=== PATIENT | female | born 1960 | race African-American/Black ===

== ENCOUNTER 2016-03-24 09:17 | Emergency (ER) | payer BC ==
[2016-03-24] MEDS ORDERED: ASPIRIN 81 MG TABLET, CHEWABLE PO ONE (09:29)
[2016-03-24] MEDS ORDERED: KETOROLAC TROMETHAMINE INJ/PF 30 MG/1 ML SDV IV ONE (10:01)
--- NOTE | 2016-03-24 10:06 | ER Document Report ---
ED Cardiac - General Mode of Arrival: Ambulatory Information source: Patient TRAVEL OUTSIDE OF THE U.S. IN LAST 30 DAYS: No - HPI Patient complains to provider of: Chest pain Associated symptoms: Other - See above <LENNY DUFF - Last Filed: 03/24/16 10:01> <KYLE MORAES - Last Filed: 03/24/16 12:19> - General Chief Complaint: Chest Pain Stated Complaint: CHEST PRESSURE,HEAD PAIN Notes: Patient is a 55 year old female, with a past medical history including A-fib, who presents to the emergency department complaining of chest pain onset yesterday. Patient reports the pain is located in her central chest and worsened this morning. Patient denies any difference in the pain when breathing but states it is exacerbated by lying down. Last April patient was admitted in [place] for new onset A-fib, she is now on Diltiazem and takes a baby Aspirin daily. While admitted patient received a cardiac catheterization which was normal. 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 Family History: CAD, Hypertension Patient has suicidal ideation: No Patient has homicidal ideation: No - Past Medical History Cardiac Medical History: Reports: Hx Atrial Fibrillation Pulmonary Medical History: Reports: Hx Asthma GI Medical History: Reports: Hx Gastroesophageal Reflux Disease Past Surgical History: Reports: Hx Section, Hx Hysterectomy, Hx Orthopedic Surgery - L ankle, Hx Tubal Ligation - Immunizations Immunizations up to date: Yes Hx Diphtheria, Pertussis, Tetanus Vaccination: Yes - 2007 <LENNY DUFF - Last Filed: 03/24/16 10:01> Review of Systems - Review of Systems Constitutional: No symptoms reported EENT: No symptoms reported Cardiovascular: See HPI, Chest pain Respiratory: No symptoms reported Gastrointestinal: No symptoms reported Genitourinary: No symptoms reported Female Genitourinary: No symptoms reported Musculoskeletal: No symptoms reported Skin: No symptoms reported Hematologic/Lymphatic: No symptoms reported Neurological/Psychological: No symptoms reported -: Yes All other systems reviewed and negative <LENNY DUFF - Last Filed: 03/24/16 10:01> Physical Exam - Vital signs Interpretation: Normal - General General appearance: Appears well, Alert - HEENT Head: Normocephalic, Atraumatic - Respiratory Respiratory status: No respiratory distress Chest status: Tender - Sternal chest wall very tender to palpation Breath sounds: Normal Chest palpation: Normal - Cardiovascular Rhythm: Regular Heart sounds: Normal auscultation Murmur: No - Abdominal Inspection: Obese Distension: No distension Bowel sounds: Normal Tenderness: Nontender Organomegaly: No organomegaly - Back Back: Normal, Nontender - Extremities General upper extremity: Normal inspection General lower extremity: Normal inspection. No: Edema - Neurological Neuro grossly intact: Yes Cognition: Normal Orientation: AAOx4 Lawrence Coma Scale Eye Opening: Spontaneous Melinda Coma Scale Verbal: Oriented Melinda Coma Scale Motor: Obeys Commands Lawrence Coma Scale Total: 15 Speech: Normal - Psychological Associated symptoms: Normal affect, Normal mood - Skin Skin Temperature: Warm Skin Moisture: Dry Skin Color: Normal <LENNY DUFF - Last Filed: 03/24/16 10:01> Course <LENNY DUFF - Last Filed: 03/24/16 10:01> - Laboratory Result Diagrams: 03/24/16 10:06 03/24/16 10:06 <KYLE MORAES - Last Filed: 03/24/16 12:19> - Re-evaluation Re-evalutation: 03/24/16 12:10 EKG does not show ischemic changes. Troponins are undetectable after several hours of pain. Anterior chest pain is reproducible on palpation. 03/24/16 12:17 after discussing possible causes for her chest wall pain, she recalls now a few days ago picking up her young child which she had to reach across a fence to lift him up to set him on the table. She now believes that may be what started her chest discomfort. (KYLE MORAES) - Vital Signs Vital signs: Temp Pulse Resp BP Pulse Ox 19 134/69 H 97 03/24/16 12:01 03/24/16 12:01 03/24/16 12:01 (KYLE MORAES) - Laboratory Laboratory results interpreted by me: 03/24/16 03/24/16 10:06 10:06 WBC 3.2 L Hgb 11.8 L Hct 35.3 L Seg Neutrophils % 31.6 L Lymphocytes % 52.0 H Monocytes % 15.5 H Absolute Neutrophils 1.0 L Creatine Kinase 558 H Total Protein 8.4 H (KYLE MORAES) Discharge <LENNY DUFF - Last Filed: 03/24/16 10:01> <KYLE MORAES - Last Filed: 03/24/16 12:19> - Discharge Clinical Impression: Chest wall pain Condition: Stable Disposition: HOME, SELF-CARE Additional Instructions: Chest Wall Pain: Your chest pain has been diagnosed as coming from the chest wall. This is often caused by straining the muscles or joints in the chest during physical activity, direct trauma, coughing, or vigorous vomiting. Persons with arthritis are especially prone to this type of pain, due to inflammation of the cartilage joints near the breast bone. Occasionally, no cause can be found. Rest from strenuous physical activity. This kind of chest pain is usually made worse by movement of the chest. Depending on the symptoms, we may prescribe medicine for pain, muscle relaxation, and antiinflammatory effects. If the pain is new, and seems to be due to muscle strain, cold packs can help. Otherwise, apply gentle warmth to the painful area for 15 minutes every hour or two. You should contact the doctor immediately if things change. Further evaluation is needed if you develop a fever or cough, if the nature of the pain changes, or if you become short of breath. TAKE TYLENOL AND MOTRIN FOR PAIN NEEDED. REST. TRY MOIST HEAT. F0LLOW UP WITH YOUR DOCTOR IF NOT IMPROVING. RETURN TO THE EMERGENCY ROOM IF ANY NEW OR WORSENING SYMPTOMS. Scribe Attestation: 03/24/16 12:19 I personally performed the services described in the documentation, reviewed and edited the documentation which was dictated to the scribe in my presence, and it accurately records my words and actions. (KYEL MORAES) Scribe Documentation <LENNY DUFF - Last Filed: 03/24/16 10:01> <KYLE MORAES - Last Filed: 03/24/16 12:19> - Scribe Written by Scribe:: KYLE MORAES MD, SCRIBE 03/24/16 1210 Acting as scribe for: Dr. Moraes (LENNY DUFF) (KYLE MORAES)
[2016-03-24 10:41] LABS: ABSOLUTE LYMPHOCYTES (AUTO) 1.7 10^3/uL (0.5-4.7); ABSOLUTE MONOCYTES (AUTO) 0.5 10^3/uL (0.1-1.4); BASOPHILS % (AUTO) 0.6 % (0-2); EOSINOPHILS % (AUTO) 0.3 % (0-6); HEMATOCRIT 35.3 % (36.0-47.0); HEMOGLOBIN 11.8 g/dL (12.0-15.5); HGB HCT DIFFERENCE 0.1; MEAN CORPUSCULAR HEMOGLOBIN 29.8 pg (27.0-33.4); MEAN CORPUSCULAR HGB CONC 33.6 g/dL (32.0-36.0); MEAN CORPUSCULAR VOLUME 89 fl (80-97); MONOCYTES % (AUTO) 15.5 % (3-13); RED BLOOD COUNT 3.98 10^6/uL (3.72-5.28); RED CELL DISTRIBUTION WIDTH 13.7 % (11.5-14.0); SEGMENTED NEUTROPHILS % (AUTO) 31.6 % (42-78); WHITE BLOOD COUNT 3.2 10^3/uL (4.0-10.5)
[2016-03-24 11:06] LABS: ALANINE AMINOTRANSFERASE 29 U/L (9-52); ALKALINE PHOSPHATASE 67 U/L (38-126); ANION GAP 10 (5-19); ASPARTATE AMINO TRANSFERASE 36 U/L (14-36); BILIRUBIN,TOTAL 0.7 mg/dL (0.2-1.3); BLOOD UREA NITROGEN 10 mg/dL (7-20); CALCIUM 9.4 mg/dL (8.4-10.2); CARBON DIOXIDE 27 mmol/L (22-30); CHLORIDE 105 mmol/L (98-107); CREATINE KINASE 558 U/L (30-135); GLUCOSE 89 mg/dL (75-110); POTASSIUM 4.4 mmol/L (3.6-5.0); TOTAL PROTEIN 8.4 g/dL (6.3-8.2)
[2016-03-24 12:14] VITALS: BP 134/69
--- NOTE | 2016-03-24 15:07 | EKG REPORT ---
SEVERITY:- ABNORMAL ECG - SINUS RHYTHM VENTRICULAR PREMATURE COMPLEX RBBB AND LAFB LEFT VENTRICULAR HYPERTROPHY : Confirmed by: Trae Villafana 24-Mar-2016 15:07:12
== END 2016-03-24 12:37 | disposition home or self-care (01) ==
LOC: ER 09:17
DX: R07.89 Other chest pain (principal); R51 Headache; I48.91 Unspecified atrial fibrillation; Z79.899 Other long term (current) drug therapy; Z87.891 Personal history of nicotine dependence
CPT/HCPCS: 93005; 99285; 96374; 36415; 82550; 85025; 80053; 84484; 71010; 93010; J1885

== ENCOUNTER 2016-10-11 17:38 | Emergency (ER) | payer BC ==
[2016-10-11] MEDS ORDERED: DIPHENHYDRAMINE HCL 25 MG CAPSULE PO ONE (18:43)
[2016-10-11] MEDS ORDERED: NYSTATIN/TRIAMCIN CREAM 15 GM TP ONE (18:44)
--- NOTE | 2016-10-11 18:44 | ER Document Report ---
HPI - HPI Pain Level: 2 Context: 56 yo female c/o pruritic area on mid upper back x 1 week. pt thinks she was bitten by something. she has been scratching the area aggressively. mild discomfort in that area when she lays on it, otherwise no pain. feels well, no fever. pt does have hx/o HIV Associated Symptoms: None Exacerbated by: Denies Relieved by: Denies Similar symptoms previously: No Recently seen / treated by doctor: No - ROS Systems Reviewed and Negative: Yes All other systems reviewed and negative - REPRODUCTIVE Reproductive: DENIES: : - DERM Skin Color: Normal Past Medical History - General Information source: Patient - Social History Smoking Status: Never Smoker Frequency of alcohol use: None Drug Abuse: None Lives with: Family Family History: CAD, Hypertension Patient has suicidal ideation: No Patient has homicidal ideation: No - Past Medical History Cardiac Medical History: Reports: Hx Atrial Fibrillation Pulmonary Medical History: Reports: Hx Asthma Renal/ Medical History: Denies: Hx Peritoneal Dialysis GI Medical History: Reports: Hx Gastroesophageal Reflux Disease Past Surgical History: Reports: Hx Section, Hx Hysterectomy, Hx Orthopedic Surgery - L ankle, Hx Tubal Ligation - Immunizations Immunizations up to date: Yes Hx Diphtheria, Pertussis, Tetanus Vaccination: Yes - 2007 Vertical Provider Document - CONSTITUTIONAL Agree With Documented VS: Yes Exam Limitations: No Limitations General Appearance: WD/WN, No Apparent Distress - INFECTION CONTROL TRAVEL OUTSIDE OF THE U.S. IN LAST 30 DAYS: No - HEENT HEENT: Atraumatic, PERRLA - NECK Neck: Normal Inspection, Supple - RESPIRATORY Respiratory: Breath Sounds Normal, No Respiratory Distress O2 Sat by Pulse Oximetry: 95 - CARDIOVASCULAR Cardiovascular: Regular Rate, Regular Rhythm - BACK Back: Abnormal Inspection - 2-3 cm cystic mass to mid upper back - MUSCULOSKELETAL/EXTREMETIES Musculoskeletal/Extremeties: MAEW, FROM, Non-Tender - NEURO Level of Consciousness: Awake, Alert, Appropriate - DERM Integumentary: Warm, Dry Course - Re-evaluation Re-evalutation: 10/11/16 19:19 H&P c/w with sebaceous or dermoid cyst. discussed I&D with patient, but she declines at this time. she requests trying antibiotics. I emphasized that I think drainage would be more effective, but she still declines. pt agrees to follow up with primary care or return to ER for any worsening. pt is stable for discharge - Vital Signs Vital signs: Temp Pulse Resp BP Pulse Ox 98.8 F 72 16 139/76 H 95 10/11/16 17:48 10/11/16 17:48 10/11/16 17:48 10/11/16 17:48 10/11/16 17:48 Discharge - Discharge Clinical Impression: Cyst Condition: Stable Disposition: HOME, SELF-CARE Instructions: Antibiotic Therapy ([facility]), Topical Steroid Cream or Ointment ([facility]) Additional Instructions: You have a cystic mass on your back You have chosen to try conservative treatment with oral antibiotic and topical steroid cream Followup with your primary care provider if symptoms persist or worsen You may need incision and drainage of that area if it doesn't respond to therapy Prescriptions: Clindamycin HCl [Cleocin 300 mg Capsule] 300 mg PO BID #14 capsule Triamcinolone Acetonide [Aristocort 0.1% Cream] 1 applic TP BID #30 g
[2016-10-11 19:42] VITALS: BP 129/72
== END 2016-10-11 19:40 | disposition home or self-care (01) ==
LOC: ER 17:38
DX: L72.0 Epidermal cyst (principal); J45.909 Unspecified asthma, uncomplicated; Z21 Asymptomatic human immunodeficiency virus [HIV] infection status
CPT/HCPCS: 99282

== ENCOUNTER 2017-05-16 06:04 | Emergency (ER) | payer BC ==
[2017-05-16] MEDS ORDERED: NORMAL SALINE 1000 ML 1,000 ML IV ONE (06:16)
[2017-05-16] MEDS ORDERED: MAG HYDROX/AL HYDROX/SIMETH SUSP 30 ML UDCUP PO ONE (06:51)
[2017-05-16] MEDS ORDERED: LIDOCAINE 2% VISCOUS SOLN 20 ML UDCUP PO ONE (06:51)
[2017-05-16] MEDS ORDERED: METOCLOPRAMIDE HCL ORAL SOLN 10 MG/10 ML UDCUP PO ONE (06:51)
[2017-05-16 07:10] LABS: ABSOLUTE LYMPHOCYTES (AUTO) 1.9 10^3/uL (0.5-4.7); ABSOLUTE MONOCYTES (AUTO) 0.5 10^3/uL (0.1-1.4); ABSOLUTE NEUT (AUTO) 1.5 10^3/uL (1.7-8.2); BASOPHILS % (AUTO) 0.7 % (0-2); EOSINOPHILS % (AUTO) 0.4 % (0-6); HEMATOCRIT 35.4 % (36.0-47.0); HEMOGLOBIN 11.8 g/dL (12.0-15.5); LYMPHOCYTES % (AUTO) 48.8 % (13-45); MEAN CORPUSCULAR HEMOGLOBIN 31.4 pg (27.0-33.4); MEAN CORPUSCULAR HGB CONC 33.5 g/dL (32.0-36.0); MEAN CORPUSCULAR VOLUME 94 fl (80-97); MONOCYTES % (AUTO) 12.3 % (3-13); PLATELET COUNT 275 10^3/uL (150-450); RED BLOOD COUNT 3.77 10^6/uL (3.72-5.28); RED CELL DISTRIBUTION WIDTH 13.5 % (11.5-14.0); SEGMENTED NEUTROPHILS % (AUTO) 37.8 % (42-78); TOTAL CELLS COUNTED % (AUTO) 100 %; WHITE BLOOD COUNT 3.9 10^3/uL (4.0-10.5)
[2017-05-16 07:23] LABS: ALANINE AMINOTRANSFERASE 31 U/L (9-52); ALBUMIN 4.3 g/dL (3.5-5.0); ALKALINE PHOSPHATASE 64 U/L (38-126); ANION GAP 9 (5-19); ASPARTATE AMINO TRANSFERASE 31 U/L (14-36); BILIRUBIN,DIRECT 0.3 mg/dL (0.0-0.4); BILIRUBIN,TOTAL 0.5 mg/dL (0.2-1.3); BLOOD UREA NITROGEN 13 mg/dL (7-20); CALCIUM 9.6 mg/dL (8.4-10.2); CARBON DIOXIDE 26 mmol/L (22-30); CHLORIDE 109 mmol/L (98-107); GLUCOSE 97 mg/dL (75-110); LIPASE 109.8 U/L (23-300); POTASSIUM 4.4 mmol/L (3.6-5.0); SODIUM 143.6 mmol/L (137-145); TOTAL PROTEIN 7.9 g/dL (6.3-8.2)
[2017-05-16 07:27] LABS: ALCOHOL < 10 mg/dL (NONE DETECTED)
[2017-05-16] MEDS ORDERED: CEPHALEXIN 500 MG CAPSULE PO ONE (08:28)
--- NOTE | 2017-05-16 08:33 | ER Document Report ---
ED General - General Chief Complaint: Abdominal Pain Stated Complaint: ABDOMINAL PAIN Time Seen by Provider: 05/16/17 06:27 TRAVEL OUTSIDE OF THE U.[place]. IN LAST 30 DAYS: No - HPI Patient complains to provider of: Abdominal pain lump in the left armpit Notes: Patient coming in for abdominal pain epigastric states worse as soon as she eats food. Patient states achy and sharp. Patient states history of H. pylori in the past however has not had an upper or lower prescription performed in greater than 5 years. Patient resting comfortably upon my evaluation denies any fevers chills nausea vomiting diarrhea. Patient also is concerned about a lump forming underneath her left armpit. Patient states multiple I&D's performed because of abscesses in the past. Patient does states she is HIV positive no history of a is unaware of her last CD4 count currently compliant with her triple therapy - Related Data Allergies/Adverse Reactions: ciprofloxacin [From Cipro] Allergy (Mild, Verified 10/11/16 19:18) Hives ciprofloxacin HCl [From Cipro] Allergy (Mild, Verified 10/11/16 19:18) Hives Past Medical History - Social History Smoking Status: Never Smoker Family History: CAD, Hypertension Patient has suicidal ideation: No Patient has homicidal ideation: No - Past Medical History Cardiac Medical History: Reports: Hx Atrial Fibrillation Pulmonary Medical History: Reports: Hx Asthma Renal/ Medical History: Denies: Hx Peritoneal Dialysis GI Medical History: Reports: Hx Gastroesophageal Reflux Disease Past Surgical History: Reports: Hx Section, Hx Hysterectomy, Hx Orthopedic Surgery - L ankle, Hx Tubal Ligation - Immunizations Immunizations up to date: Yes Hx Diphtheria, Pertussis, Tetanus Vaccination: Yes - 2007 Review of Systems - Review of Systems Constitutional: No symptoms reported EENT: No symptoms reported Cardiovascular: No symptoms reported Respiratory: No symptoms reported Gastrointestinal: Abdominal pain Genitourinary: No symptoms reported Female Genitourinary: No symptoms reported Musculoskeletal: Other - Pain left axilla Skin: No symptoms reported Hematologic/Lymphatic: No symptoms reported Neurological/Psychological: No symptoms reported -: Yes All other systems reviewed and negative Physical Exam - Vital signs Vitals: Temp Pulse Resp BP Pulse Ox 98.3 F 71 16 140/75 H 98 05/16/17 06:13 05/16/17 06:13 05/16/17 06:13 05/16/17 06:13 05/16/17 06:13 Interpretation: Normal - General General appearance: Appears well, Alert - HEENT Head: Normocephalic, Atraumatic Eyes: Normal Pupils: PERRL - Respiratory Respiratory status: No respiratory distress Chest status: Nontender Breath sounds: Normal Chest palpation: Normal - Cardiovascular Rhythm: Regular Heart sounds: Normal auscultation Murmur: No - Abdominal Inspection: Normal Distension: No distension Bowel sounds: Normal Tenderness: Nontender Organomegaly: No organomegaly - Back Back: Normal, Nontender - Extremities General upper extremity: Nontender, Normal color, Normal ROM, Normal temperature. No: Normal inspection - Examination of the left axilla reveals near the scar tissue when area of induration small less than a centimeter by centimeter with erythema. There is no fluctuance. Bedside ultrasound was performed showing no drainable fluid collection. This area is painful to touch. No other significant findings on examination General lower extremity: Normal inspection, Nontender, Normal color, Normal ROM , Normal temperature, Normal weight bearing. No: Joaquim's sign - Neurological Neuro grossly intact: Yes Cognition: Normal Orientation: AAOx4 Melinda Coma Scale Eye Opening: Spontaneous Melinda Coma Scale Verbal: Oriented Melinda Coma Scale Motor: Obeys Commands Matheson Coma Scale Total: 15 Speech: Normal Motor strength normal: LUE, RUE, LLE, RLE Sensory: Normal - Psychological Associated symptoms: Normal affect, Normal mood - Skin Skin Temperature: Warm Skin Moisture: Dry Skin Color: Normal Course - Re-evaluation Re-evalutation: 05/16/17 13:22 Laboratory studies not reveal any significant pathology. More likely abdominal pain is related to underlying gastritis. Will start patient on Reglan Carafate and omeprazole. Patient was highly encouraged to follow-up with a diamond wheel edger for upper and lower scopes to be repeated. Patient states understanding. . Patient more likely has hidradenitis with a history of multiple I&D's performed in the axilla region. At this time there is no drainable fluid collection however there is an area of redness and induration we will start the patient on Keflex to hopefully prevent an abscess formation explained to patient that I will highly recommend that she follow-up with local surgeons for further evaluation. Patient states understanding. - Vital Signs Vital signs: Temp Pulse Resp BP Pulse Ox 98.3 F 71 16 140/75 H 98 05/16/17 06:13 05/16/17 06:13 05/16/17 06:13 05/16/17 06:13 05/16/17 06:13 - Laboratory Result Diagrams: 05/16/17 06:45 05/16/17 06:45 Laboratory results interpreted by me: 05/16/17 05/16/17 06:45 06:45 WBC 3.9 L Hgb 11.8 L Hct 35.4 L Seg Neutrophils % 37.8 L Lymphocytes % 48.8 H Absolute Neutrophils 1.5 L Chloride 109 H Discharge - Discharge Clinical Impression: Epigastric abdominal pain, Hidradenitis axillaris Condition: Good Instructions: Abdominal Pain ([facility]), Gastritis ([facility]), Gastroenterology, Surgeon Additional Instructions: Evaluation is consistent with gastritis or inflammation of the stomach lining. I will highly recommend she follow-up with a diamond wheel edger for further evaluation. Please continue take medications as prescribed. Evaluation of the knot underneath your left armpit does not reveal any signs of abscess formation or anything that would require drainage at this time. I do believe you probably suffers from hidradenitis which condition where he had multiple infections and abscesses with your sebaceous glands. Most time we will refer you to a general surgeon for further treatment of this. you may follow-up with 1 of the surgeons provided or discuss with your infectious disease doctor about a surgeon in [place]. I would recommend placing warm compresses on the area. Take Tylenol Motrin for pain control his symptoms worsen return to the ER for further evaluation. Prescriptions: Cephalexin Monohydrate [Keflex 500 mg Capsule] 500 mg PO Q6H 7 Days capsule Metoclopramide HCl [Reglan] 5 mg PO Q6 #30 tablet Omeprazole 20 mg PO DAILY #30 capsule. Sucralfate [Carafate 1 gm Tablet] 1 gm PO ACHS #120 tablet Forms: Return to Work
[2017-05-16 10:31] VITALS: BP 118/64
== END 2017-05-16 09:40 | disposition home or self-care (01) ==
LOC: ER 06:04
DX: L73.2 Hidradenitis suppurativa (principal); R10.13 Epigastric pain; Z88.3 Allergy status to other anti-infective agents; Z90.710 Acquired absence of both cervix and uterus
CPT/HCPCS: 99284; 36415; 80307; 83690; 85025; 80053; J3490

== ENCOUNTER 2018-02-11 10:27 | Emergency (ER) | payer BC ==
[2018-02-11] MEDS ORDERED: ASPIRIN 81 MG TABLET, CHEWABLE PO ONE (10:32)
[2018-02-11] MEDS ORDERED: MORPHINE SULFATE 10 MG/ML INJ IV ONE (10:42)
--- NOTE | 2018-02-11 10:47 | ER Document Report ---
ED Cardiac - General Chief Complaint: Chest Pain Stated Complaint: CHEST PAIN Time Seen by Provider: 02/11/18 10:35 Mode of Arrival: Medic Information source: Patient Notes: 57-year-old female presents emergency department with complaints of chest pain for the last 2 days. She describes the pain as a pressure sensation in the left chest. She is also complaining of some associated left arm pain. She denies any radiation of the pain. She states that her chest pain was relieved with aspirin and nitro. She still having some residual left arm pain. She denies any exacerbating factors. Patient denies a history of coronary artery disease, diabetes, hypertension, hyperlipidemia. Patient does not smoke. Patient states that her father did of an MA in his 60s. Patient states that she has had a history of atrial fibrillation. She is not currently on any medications for rate control or for anticoagulation. Patient does have a history of HIV. She is being followed up in [place]. Patient states that her CD4 count has been good. She does not know what it was. She states that she is on medication for HIV but does not know the names of the medication. She denies any fever, chills, shortness of breath, abdominal pain. TRAVEL OUTSIDE OF THE [place] IN LAST 30 DAYS: No - HPI Quality of pain: Pressure Chest pain radiation location: Left arm Severity now: Mild Severity at worst: Severe Chest pain precipitating factors: At Rest Cardiac risk factors: + Family history Associated symptoms: None Exacerbated by: Denies Relieved by: NTG Similar symptoms previously: Yes Recently seen / treated by doctor: No - Related Data Allergies/Adverse Reactions: ciprofloxacin [From Cipro] Allergy (Mild, Verified 02/11/18 11:31) Hives ciprofloxacin HCl [From Cipro] Allergy (Mild, Verified 02/11/18 11:31) Hives Past Medical History - General Information source: Patient - Social History Smoking Status: Never Smoker Family History: CAD, Hypertension - Past Medical History Cardiac Medical History: Reports: Hx Atrial Fibrillation Pulmonary Medical History: Reports: Hx Asthma Renal/ Medical History: Denies: Hx Peritoneal Dialysis GI Medical History: Reports: Hx Gastroesophageal Reflux Disease Past Surgical History: Reports: Hx Section, Hx Hysterectomy, Hx Orthopedic Surgery - L ankle, Hx Tubal Ligation - Immunizations Immunizations up to date: Yes Hx Diphtheria, Pertussis, Tetanus Vaccination: Yes - 2007 Review of Systems - Review of Systems Constitutional: No symptoms reported EENT: No symptoms reported Cardiovascular: Chest pain Respiratory: No symptoms reported Gastrointestinal: No symptoms reported Genitourinary: No symptoms reported Female Genitourinary: No symptoms reported Musculoskeletal: No symptoms reported Skin: No symptoms reported Hematologic/Lymphatic: No symptoms reported Neurological/Psychological: No symptoms reported -: Yes All other systems reviewed and negative Physical Exam - Vital signs Vitals: Pulse Ox 100 02/11/18 10:32 - Notes Notes: PHYSICAL EXAMINATION: GENERAL: Well-appearing, well-nourished and in no acute distress. HEAD: Atraumatic, normocephalic. EYES: Pupils equal round and reactive to light, extraocular movements intact, conjunctiva are normal. ENT: Nares patent, oropharynx clear without exudates. Moist mucous membranes. NECK: Normal range of motion, supple without lymphadenopathy LUNGS: Breath sounds clear to auscultation bilaterally and equal. No wheezes rales or rhonchi. HEART: Regular rate and rhythm without murmurs ABDOMEN: Soft, nontender, nondistended abdomen. No guarding, no rebound. No masses appreciated. Female : deferred Musculoskeletal: Normal range of motion, no pitting or edema. No cyanosis. NEUROLOGICAL: Cranial nerves grossly intact. Normal speech, normal gait. Normal sensory, motor exams PSYCH: Normal mood, normal affect. SKIN: Warm, Dry, normal turgor, no rashes or lesions noted. Course - Re-evaluation Re-evalutation: 02/11/18 10:47 EKG: Ventricular rate 69, DE interval 156, castration 150, QTc 506, sinus rhythm , multiple PVCs appreciated. EKG similar to that done on 03/24/16. 02/11/18 14:18 Labs and imaging obtained. First troponin is within normal limits. Chest x- ray does not show an acute process. I reevaluate the patient. She is currently asymptomatic. I instructed the patient that we would obtain a second troponin and if this was negative we would discharge her home. Patient is now stating that she wants to leave AGAINST MEDICAL ADVICE. She does not want to wait for the second troponin. Patient is competent to make medical decisions. Patient understands that her condition may worsen or she may by leaving AGAINST MEDICAL ADVICE. - Vital Signs Vital signs: Temp Pulse Resp BP Pulse Ox 98.3 F 58 L 12 151/98 H 100 02/11/18 10:41 02/11/18 10:41 02/11/18 10:41 02/11/18 10:41 02/11/18 10:41 - Laboratory Result Diagrams: 02/11/18 10:15 02/11/18 10:15 Laboratory results interpreted by me: 02/11/18 02/11/18 10:15 10:15 WBC 3.7 L Seg Neutrophils % 34.2 L Lymphocytes % 54.4 H Absolute Neutrophils 1.3 L Creatine Kinase 356 H Discharge - Discharge Clinical Impression: Chest pain Qualifiers: Chest pain type: unspecified Qualified Code(s): R07.9 - Chest pain, unspecified Condition: Stable Disposition: AGAINST MEDICAL ADVICE
[2018-02-11 11:25] LABS: ABSOLUTE MONOCYTES (AUTO) 0.4 10^3/uL (0.1-1.4); ABSOLUTE NEUT (AUTO) 1.3 10^3/uL (1.7-8.2); BASOPHILS % (AUTO) 0.7 % (0-2); EOSINOPHILS % (AUTO) 0.2 % (0-6); HEMATOCRIT 36.5 % (36.0-47.0); HEMOGLOBIN 12.1 g/dL (12.0-15.5); LYMPHOCYTES % (AUTO) 54.4 % (13-45); MEAN CORPUSCULAR HEMOGLOBIN 30.7 pg (27.0-33.4); MEAN CORPUSCULAR HGB CONC 33.1 g/dL (32.0-36.0); MEAN CORPUSCULAR VOLUME 93 fl (80-97); MONOCYTES % (AUTO) 10.5 % (3-13); PLATELET COUNT 266 10^3/uL (150-450); RED BLOOD COUNT 3.93 10^6/uL (3.72-5.28); SEGMENTED NEUTROPHILS % (AUTO) 34.2 % (42-78); TOTAL CELLS COUNTED % (AUTO) 100 %; WHITE BLOOD COUNT 3.7 10^3/uL (4.0-10.5)
--- NOTE | 2018-02-11 11:30 | RADIOLOGY REPORT (SQ) ---
EXAM DESCRIPTION: CHEST SINGLE VIEW COMPLETED DATE/TIME: 02/11/2018 11:17 am REASON FOR STUDY: cp COMPARISON: 02/08/2014 EXAM PARAMETERS: NUMBER OF VIEWS: One view. TECHNIQUE: Single frontal radiographic view of the chest acquired. RADIATION DOSE: NA LIMITATIONS: None. FINDINGS: LUNGS AND PLEURA: No opacities, masses or pneumothorax. No pleural effusion. MEDIASTINUM AND HILAR STRUCTURES: No masses. Contour normal. HEART AND VASCULAR STRUCTURES: Heart normal in size. Normal vasculature. BONES: No acute findings. HARDWARE: None in the chest. OTHER: No other significant finding. IMPRESSION: NO ACUTE RADIOGRAPHIC FINDING IN THE CHEST. TECHNICAL DOCUMENTATION: JOB ID: [id number] [employer]- All Rights Reserved Reading location - IP/workstation name: [email or web address]
[2018-02-11 11:44] LABS: ALANINE AMINOTRANSFERASE 17 U/L (9-52); ALBUMIN 4.3 g/dL (3.5-5.0); ALKALINE PHOSPHATASE 73 U/L (38-126); ANION GAP 12 (5-19); ASPARTATE AMINO TRANSFERASE 28 U/L (14-36); BILIRUBIN,DIRECT 0.2 mg/dL (0.0-0.4); BILIRUBIN,TOTAL 0.5 mg/dL (0.2-1.3); BLOOD UREA NITROGEN 11 mg/dL (7-20); CALCIUM 9.4 mg/dL (8.4-10.2); CARBON DIOXIDE 28 mmol/L (22-30); CHLORIDE 105 mmol/L (98-107); CREATINE KINASE 356 U/L (30-135); GLUCOSE 95 mg/dL (75-110); POTASSIUM 4.7 mmol/L (3.6-5.0); SODIUM 144.7 mmol/L (137-145)
[2018-02-11 11:55] LABS: CREATINE KINASE MB 2.77 ng/mL (<4.55)
[2018-02-11 11:56] LABS: TROPONIN I < 0.012 ng/mL
[2018-02-11 14:25] VITALS: BP 141/72
--- NOTE | 2018-02-11 18:38 | EKG REPORT ---
SEVERITY:- ABNORMAL ECG - SINUS RHYTHM MULTIPLE VENTRICULAR PREMATURE COMPLEXES RBBB AND LAFB LEFT VENTRICULAR HYPERTROPHY : Confirmed by: Trae Villafana 11-Feb-2018 18:37:00
== END 2018-02-11 14:20 | disposition left against medical advice (07) ==
LOC: ER 10:27
DX: R07.9 Chest pain, unspecified (principal); M79.602 Pain in left arm; B20 Human immunodeficiency virus [HIV] disease; Z79.899 Other long term (current) drug therapy; J45.909 Unspecified asthma, uncomplicated
CPT/HCPCS: 36415; 71045; 80053; 82550; 82553; 84484; 85025; 93005; 93010; 99285

== ENCOUNTER 2018-11-22 10:07 | Emergency (ER) | payer BC ==
[2018-11-22] MEDS ORDERED: KETOROLAC TROMETHAMINE INJ/PF 30 MG/1 ML SDV IV ONE (11:44)
--- NOTE | 2018-11-22 11:55 | ER Document Report ---
ED General - General Chief Complaint: Neck Pain < 24hrs old Stated Complaint: NECK PAIN Time Seen by Provider: 11/22/18 11:35 Mode of Arrival: Ambulatory Information source: Patient TRAVEL OUTSIDE OF THE [place] IN LAST 30 DAYS: No - HPI Patient complains to provider of: neck/chest pain Onset: Yesterday - pt with onset of atraumatic R-sided neck pain starting last night. Today neck pain continued with radiation to R shoulder and chest. She went to PCP office ([facility]) where EKG had changes on it and was told to go to ED for further evaluation. She was given ASA there. Has h/o A fib and HIV - Related Data Allergies/Adverse Reactions: ciprofloxacin [From Cipro] Allergy (Mild, Verified 11/22/18 10:09) Hives ciprofloxacin HCl [From Cipro] Allergy (Mild, Verified 11/22/18 10:09) Hives Past Medical History - Social History Smoking Status: Former Smoker Chew tobacco use (# tins/day): No Frequency of alcohol use: None Drug Abuse: None Family History: CAD, Hypertension Patient has suicidal ideation: No Patient has homicidal ideation: No - Past Medical History Cardiac Medical History: Reports: Hx Atrial Fibrillation Pulmonary Medical History: Reports: Hx Asthma Renal/ Medical History: Denies: Hx Peritoneal Dialysis GI Medical History: Reports: Hx Gastroesophageal Reflux Disease Past Surgical History: Reports: Hx Section, Hx Hysterectomy, Hx Orthopedic Surgery - L ankle, Hx Tubal Ligation - Immunizations Immunizations up to date: Yes Hx Diphtheria, Pertussis, Tetanus Vaccination: Yes - 2007 Review of Systems - Review of Systems Constitutional: No symptoms reported EENT: No symptoms reported Cardiovascular: See HPI, Chest pain Respiratory: No symptoms reported Gastrointestinal: No symptoms reported Musculoskeletal: See HPI, Neck pain Neurological/Psychological: No symptoms reported -: Yes All other systems reviewed and negative Physical Exam - Vital signs Vitals: Temp Pulse Resp BP Pulse Ox 98.8 F 64 20 179/77 H 98 11/22/18 10:20 11/22/18 10:20 11/22/18 10:20 11/22/18 10:20 11/22/18 10:20 - General General appearance: Appears well In distress: Mild - HEENT Head: Normocephalic Pupils: PERRL Pharynx: Normal Neck: Other - min TTP R sternomastoid diffusely with FROM of neck. - Respiratory Respiratory status: No respiratory distress Breath sounds: Normal - Cardiovascular Rhythm: Regular Heart sounds: Normal auscultation Murmur: No - Abdominal Inspection: Normal Tenderness: Nontender Course - Re-evaluation Re-evalutation: 11/22/18 13:54 pt feels much better after IM toradol -- expressed desire to go home - Vital Signs Vital signs: Temp Pulse Resp BP Pulse Ox 98.8 F 64 20 179/77 H 98 11/22/18 10:20 11/22/18 10:20 11/22/18 10:20 11/22/18 10:20 11/22/18 10:20 - Laboratory Result Diagrams: 11/22/18 12:22 11/22/18 12:22 Laboratory results interpreted by me: 11/22/18 12:22 Creatine Kinase 276 H - Diagnostic Test Radiology reviewed: Reports reviewed - nad - EKG Interpretation by Me EKG shows normal: Sinus rhythm Rate: Normal Rhythm: NSR - nsr with RBBB and LAFB (unchanged from 02/26). Discharge - Discharge Clinical Impression: Neck pain Condition: Stable Disposition: HOME, SELF-CARE Additional Instructions: rest, take meds as prescribed, return if worse Prescriptions: Cyclobenzaprine HCl [Flexeril 10 mg Tablet] 10 mg PO TIDP PRN #15 tab PRN Reason: Etodolac [Lodine] 400 mg PO BID #14 tablet Referrals: SUE MORRIS MD [ACTIVE STAFF] - Follow up as needed
--- NOTE | 2018-11-22 12:49 | RADIOLOGY REPORT (SQ) ---
EXAM DESCRIPTION: CHEST 2 VIEWS COMPLETED DATE/TIME: 11/22/2018 12:39 pm REASON FOR STUDY: CP COMPARISON: None. EXAM PARAMETERS: NUMBER OF VIEWS: two views TECHNIQUE: Digital Frontal and Lateral radiographic views of the chest acquired. RADIATION DOSE: NA LIMITATIONS: none FINDINGS: LUNGS AND PLEURA: No consolidation, pleural effusion or pneumothorax. MEDIASTINUM AND HILAR STRUCTURES: No mediastinal or hilar contour abnormality. HEART AND VASCULAR STRUCTURES: The cardiac silhouette is borderline enlarged. The pulmonary vasculat ure is within normal limits. BONES: No acute findings. HARDWARE: None in the chest. OTHER: No other finding. IMPRESSION: No acute cardiopulmonary process. TECHNICAL DOCUMENTATION: JOB ID: [id number] [employer]- All Rights Reserved Reading location - IP/workstation name: [email or web address]
[2018-11-22 13:12] LABS: ABSOLUTE LYMPHOCYTES (AUTO) 1.7 10^3/uL (0.5-4.7); ABSOLUTE MONOCYTES (AUTO) 0.5 10^3/uL (0.1-1.4); ABSOLUTE NEUT (AUTO) 2.8 10^3/uL (1.7-8.2); BASOPHILS % (AUTO) 0.5 % (0-2); EOSINOPHILS % (AUTO) 0.2 % (0-6); HEMATOCRIT 36.1 % (36.0-47.0); LYMPHOCYTES % (AUTO) 34.3 % (13-45); MEAN CORPUSCULAR HEMOGLOBIN 31.2 pg (27.0-33.4); MEAN CORPUSCULAR HGB CONC 33.2 g/dL (32.0-36.0); MEAN CORPUSCULAR VOLUME 94 fl (80-97); MONOCYTES % (AUTO) 9.3 % (3-13); PLATELET COUNT 255 10^3/uL (150-450); RED BLOOD COUNT 3.85 10^6/uL (3.72-5.28); RED CELL DISTRIBUTION WIDTH 13.5 % (11.5-14.0); SEGMENTED NEUTROPHILS % (AUTO) 55.7 % (42-78); TOTAL CELLS COUNTED % (AUTO) 100 %; WHITE BLOOD COUNT 5.1 10^3/uL (4.0-10.5)
[2018-11-22 13:29] LABS: ALBUMIN 4.7 g/dL (3.5-5.0); ALKALINE PHOSPHATASE 83 U/L (38-126); ANION GAP 10 (5-19); ASPARTATE AMINO TRANSFERASE 26 U/L (14-36); BILIRUBIN,DIRECT 0.2 mg/dL (0.0-0.4); BILIRUBIN,TOTAL 0.6 mg/dL (0.2-1.3); BLOOD UREA NITROGEN 14 mg/dL (7-20); CALCIUM 9.6 mg/dL (8.4-10.2); CARBON DIOXIDE 29 mmol/L (22-30); CHLORIDE 103 mmol/L (98-107); CREATINE KINASE 276 U/L (30-135); GLUCOSE 89 mg/dL (75-110); POTASSIUM 4.2 mmol/L (3.6-5.0)
[2018-11-22 13:51] LABS: TROPONIN I < 0.012 ng/mL
[2018-11-22 14:16] VITALS: BP 176/78
--- NOTE | 2018-11-22 23:10 | EKG REPORT ---
SEVERITY:- ABNORMAL ECG - SINUS RHYTHM RBBB AND LAFB LEFT VENTRICULAR HYPERTROPHY : Confirmed by: Swapna Mcrae MD 22-Nov-2018 23:09:34
== END 2018-11-22 14:16 | disposition home or self-care (01) ==
LOC: ER 10:07
DX: M54.2 Cervicalgia (principal); M25.511 Pain in right shoulder; R07.9 Chest pain, unspecified; I45.2 Bifascicular block; J45.909 Unspecified asthma, uncomplicated; Z21 Asymptomatic human immunodeficiency virus [HIV] infection status; Z87.891 Personal history of nicotine dependence; Z88.1 Allergy status to other antibiotic agents; Z82.49 Family history of ischemic heart disease and other diseases of the circulatory system
CPT/HCPCS: 93005; 99284; 96374; 36415; 82553; 82550; 85025; 80053; 84484; 71046; 93010; J1885

== ENCOUNTER 2018-12-27 08:59 | Observation (INO) | payer BC ==
[2018-12-27] MEDS ORDERED: ASPIRIN 81 MG TABLET, CHEWABLE PO ONE (09:06)
[2018-12-27] MEDS ORDERED: NORMAL SALINE 1000 ML 1,000 ML IV ONE (09:36)
[2018-12-27] MEDS ORDERED: DILTIAZEM HCL INJ 25 MG/5 ML VIAL IV ONE ×2 (09:36→18:01)
--- NOTE | 2018-12-27 09:36 | ER Document Report ---
Entered by HUMERA IGLESIAS SCRIBE 12/27/18919 Acting as scribe for:KYLE MORAES MD ED Cardiac - General Chief Complaint: Arrhythmia Stated Complaint: CHEST PAIN Time Seen by Provider: 12/27/18 09:12 Primary Care Provider: MARILYN POE MD [Primary Care Provider] - Follow up as needed Mode of Arrival: Ambulatory Information source: Patient Notes: Patient is a 58-year-old female who presents to the emergency department today with complaints of palpitations with a heart racing sensation. Patient states she has been on Cardizem in the past but she was taken off of this medication about 1 year ago by "Dr. Del Toro at [facility]". Patient states she has not had any chest pain with this, but she has had mild chest tightness which she states is normal for her when this happens. TRAVEL OUTSIDE OF THE [place] IN LAST 30 DAYS: No - Related Data Allergies/Adverse Reactions: ciprofloxacin [From Cipro] Allergy (Mild, Verified 11/22/18 10:09) Hives ciprofloxacin HCl [From Cipro] Allergy (Mild, Verified 11/22/18 10:09) Hives Past Medical History - General Information source: Patient - Social History Smoking Status: Former Smoker - quit in 2010 Cigarette use (# per day): No Chew tobacco use (# tins/day): No Smoking Education Provided: No Frequency of alcohol use: None Drug Abuse: None Family History: Reviewed & Not Pertinent, CAD, Hypertension Patient has suicidal ideation: No Patient has homicidal ideation: No - Medical History Notes: HIV - Past Medical History Cardiac Medical History: Reports: Hx Atrial Fibrillation Pulmonary Medical History: Reports: Hx Asthma GI Medical History: Reports: Hx Gastroesophageal Reflux Disease Past Surgical History: Reports: Hx Cardiac Catheterization - Apr 2015, unremarkable., Hx Section, Hx Hysterectomy, Hx Orthopedic Surgery - L ankle, Hx Tubal Ligation - Immunizations Immunizations up to date: Yes Hx Diphtheria, Pertussis, Tetanus Vaccination: Yes - 2007 Review of Systems - Review of Systems Constitutional: No symptoms reported EENT: No symptoms reported Cardiovascular: See HPI, Palpitations, Heart racing. denies: Chest pain Respiratory: No symptoms reported Gastrointestinal: No symptoms reported Genitourinary: No symptoms reported Female Genitourinary: No symptoms reported Musculoskeletal: No symptoms reported Skin: No symptoms reported Hematologic/Lymphatic: No symptoms reported Neurological/Psychological: No symptoms reported -: Yes All other systems reviewed and negative Physical Exam - Vital signs Vitals: Resp Pulse Ox 18 100 12/27/18 09:08 12/27/18 09:08 - Notes Notes: Physical Exam: General: Alert, appears well. HEENT: Normocephalic. Atraumatic. PERRL. Extraocular movements intact. Oropharynx clear. Neck: Supple. Non-tender. Respiratory: No respiratory distress. Clear and equal breath sounds bilaterally. Cardiovascular: Tachycardic, occasionally irregular. Abdominal: Obese. Non-tender. No distension. Normal Bowel Sounds. Back: No gross abnormalities. Extremities: Moves all four extremities. Upper extremities: Normal inspection. Normal ROM. Lower extremities: Normal inspection. No edema. Normal ROM. Neurological: Normal cognition. AAOx4. Normal speech. Psychological: Normal affect. Normal Mood. Skin: Warm. Dry. Normal color. Course - Re-evaluation Re-evalutation: 12/27/18 13:49 After giving Lopressor 5 mg, and increasing the Cardizem drip to 10 mg/h, heart rate is dropped into the mid 80s. She does remain in atrial fibrillation. - Vital Signs Vital signs: Temp Pulse Resp BP Pulse Ox 97.9 F 123 H 21 H 133/73 H 94 12/27/18 12:36 12/27/18 09:17 12/27/18 12:00 12/27/18 10:02 12/27/18 12:00 - Laboratory Result Diagrams: 12/27/18 09:08 12/27/18 09:08 Laboratory results interpreted by me: 12/27/18 12/27/18 09:08 09:08 WBC 3.9 L Lymph % (Auto) 46.5 H Chloride 108 H Creatine Kinase 380 H - Diagnostic Test Radiology reviewed: Image reviewed, Reports reviewed - Chest x-ray shows stable mild cardiac enlargement with no acute changes. - EKG Interpretation by Me EKG shows normal: [place], Intervals, QRS Complexes, ST-T Waves Rate: Tachycardia - 132 Rhythm: A.Fib [place]/QRS: RBBB, IVCD Voltage: Consistant with LVH When compared to previous EKG there are: Changes noted - Consults JUANA Hayward Time consulted: 12:30 Consulted provider: will come to ER Critical Care Note - Critical Care Note Total time excluding time spent on procedures (mins): 40 Discharge - Discharge Clinical Impression: Atrial fibrillation with rapid ventricular response, Elevated troponin High blood pressure Qualifiers: Hypertension type: essential hypertension Qualified Code(s): I10 - Essential (primary) hypertension Condition: Stable Disposition: ADMITTED INPATIENT Admitting Provider: Erik (Hospitalist) Unit Admitted: Telemetry Referrals: MARILYN POE MD [Primary Care Provider] - Follow up as needed Scribe Attestation: 12/27/18 11:30 I personally performed the services described in the documentation, reviewed and edited the documentation which was dictated to the scribe in my presence, and it accurately records my words and actions. I personally performed the services described in the documentation, reviewed and edited the documentation which was dictated to the scribe in my presence, and it accurately records my words and actions.
[2018-12-27 09:40] LABS: ABSOLUTE LYMPHOCYTES (AUTO) 1.8 10^3/uL (0.5-4.7); ABSOLUTE MONOCYTES (AUTO) 0.4 10^3/uL (0.1-1.4); ABSOLUTE NEUT (AUTO) 1.7 10^3/uL (1.7-8.2); BASOPHILS % (AUTO) 0.9 % (0-2); EOSINOPHILS % (AUTO) 0.4 % (0-6); HEMATOCRIT 37.8 % (36.0-47.0); HEMOGLOBIN 12.3 g/dL (12.0-15.5); LYMPHOCYTES % (AUTO) 46.5 % (13-45); MEAN CORPUSCULAR HEMOGLOBIN 30.9 pg (27.0-33.4); MEAN CORPUSCULAR HGB CONC 32.6 g/dL (32.0-36.0); MEAN CORPUSCULAR VOLUME 95 fl (80-97); MONOCYTES % (AUTO) 9.3 % (3-13); PLATELET COUNT 283 10^3/uL (150-450); RED BLOOD COUNT 3.98 10^6/uL (3.72-5.28); RED CELL DISTRIBUTION WIDTH 13.6 % (11.5-14.0); SEGMENTED NEUTROPHILS % (AUTO) 42.9 % (42-78); TOTAL CELLS COUNTED % (AUTO) 100 %; WHITE BLOOD COUNT 3.9 10^3/uL (4.0-10.5)
[2018-12-27] MEDS: DILTIAZEM HCL/D5W 125 MG/125 ML RTUINJ IV PRN (09:50)
[2018-12-27 10:10] LABS: ALBUMIN 4.3 g/dL (3.5-5.0); ALKALINE PHOSPHATASE 71 U/L (38-126); ANION GAP 6 (5-19); ASPARTATE AMINO TRANSFERASE 23 U/L (14-36); BILIRUBIN,DIRECT 0.2 mg/dL (0.0-0.4); BILIRUBIN,TOTAL 0.5 mg/dL (0.2-1.3); BLOOD UREA NITROGEN 12 mg/dL (7-20); CALCIUM 9.2 mg/dL (8.4-10.2); CARBON DIOXIDE 29 mmol/L (22-30); CHLORIDE 108 mmol/L (98-107); CREATINE KINASE 380 U/L (30-135); GLUCOSE 109 mg/dL (75-110); POTASSIUM 3.7 mmol/L (3.6-5.0); TOTAL PROTEIN 7.8 g/dL (6.3-8.2)
[2018-12-27 10:22] LABS: CREATINE KINASE MB 2.84 ng/mL (<4.55)
[2018-12-27 10:27] LABS: TROPONIN I 0.039 ng/mL
--- NOTE | 2018-12-27 11:03 | RADIOLOGY REPORT (SQ) ---
EXAM DESCRIPTION: CHEST SINGLE VIEW COMPLETED DATE/TIME: 12/27/2018 10:44 am REASON FOR STUDY: Atrial fibrillation with RVR COMPARISON: 11/22/2018. EXAM PARAMETERS: NUMBER OF VIEWS: One view. TECHNIQUE: Single frontal radiographic view of the chest acquired. RADIATION DOSE: NA LIMITATIONS: None. FINDINGS: LUNGS AND PLEURA: No opacities, masses or pneumothorax. No pleural effusion. MEDIASTINUM AND HILAR STRUCTURES: No masses. Contour normal. HEART AND VASCULAR STRUCTURES: Stable mild cardiac enlargement. Normal vasculature. BONES: No acute findings. HARDWARE: None in the chest. OTHER: No other significant finding. IMPRESSION: STABLE MILD CARDIAC ENLARGEMENT. NO ACUTE RADIOGRAPHIC FINDING IN THE CHEST. TECHNICAL DOCUMENTATION: JOB ID: [id number] [employer]- All Rights Reserved Reading location - IP/workstation name: [email or web address]
[2018-12-27] MEDS ORDERED: METOPROLOL TARTRATE PF/INJ 5 MG/5 ML SDV IV ONE (12:49)
[2018-12-27] MEDS ORDERED: ONDANSETRON 4 MG TAB.RAPDIS PO PRN (13:16)
[2018-12-27] MEDS ORDERED: OXYCODONE-ACETAMINOPHEN 5-325 MG TABLET PO PRN (13:16)
[2018-12-27] MEDS ORDERED: ONDANSETRON HCL INJ/PF 4 MG/2 ML SDV IV PRN (13:16)
[2018-12-27] MEDS ORDERED: ACETAMINOPHEN 325 MG TABLET PO PRN (13:16)
[2018-12-27] MEDS ORDERED: DILTIAZEM HCL/D5W 125 MG/125 ML RTUINJ IV PRN ×2 (13:25→17:19)
[2018-12-27] MEDS ORDERED: METOPROLOL SUCCINATE 25 MG TAB.SR.24H PO ONE (13:26)
[2018-12-27] MEDS: ENOXAPARIN SODIUM INJ 40 MG/0.4 ML DISP.SYRIN SUBCUT SCH (13:54)
[2018-12-27 14:00] LABS: INTERNATIONAL RATION (INR) 0.97; PROTHROMBIN TIME 12.9 SEC (11.4-15.4)
[2018-12-27 14:31] LABS: APPEARANCE,URINE CLEAR; BILIRUBIN,URINE NEGATIVE (NEGATIVE); COLOR,URINE COLORLESS; GLUCOSE, URINE NEGATIVE (NEGATIVE); KETONES,URINE NEGATIVE (NEGATIVE); LEUKOCYTE ESTERASE,URINE NEGATIVE (NEGATIVE); NITRITE,URINE NEGATIVE (NEGATIVE); PROTEIN,URINE NEGATIVE (NEGATIVE); URINE SPECIFIC GRAVITY 1.004; UROBILINOGEN,URINE NEGATIVE mg/dL (<2.0)
[2018-12-27 17:30] LABS: CREATINE KINASE MB 3.44 ng/mL (<4.55); TROPONIN I 0.349 ng/mL
[2018-12-27] MEDS ORDERED: ATORVASTATIN CALCIUM 20 MG TABLET PO SCH (22:00)
[2018-12-27] MEDS: FAMOTIDINE 20 MG TABLET PO SCH (23:36)
[2018-12-28] MEDS: DILTIAZEM HCL/D5W 125 MG/125 ML RTUINJ IV PRN (06:20)
[2018-12-28 06:51] LABS: ABSOLUTE LYMPHOCYTES (AUTO) 1.8 10^3/uL (0.5-4.7); ABSOLUTE MONOCYTES (AUTO) 0.3 10^3/uL (0.1-1.4); ABSOLUTE NEUT (AUTO) 1.1 10^3/uL (1.7-8.2); BASOPHILS % (AUTO) 0.2 % (0-2); EOSINOPHILS % (AUTO) 0.4 % (0-6); HEMATOCRIT 34.7 % (36.0-47.0); HEMOGLOBIN 11.4 g/dL (12.0-15.5); LYMPHOCYTES % (AUTO) 54.7 % (13-45); MEAN CORPUSCULAR HGB CONC 32.9 g/dL (32.0-36.0); MEAN CORPUSCULAR VOLUME 94 fl (80-97); MONOCYTES % (AUTO) 10.6 % (3-13); PLATELET COUNT 254 10^3/uL (150-450); RED BLOOD COUNT 3.68 10^6/uL (3.72-5.28); RED CELL DISTRIBUTION WIDTH 13.9 % (11.5-14.0); SEGMENTED NEUTROPHILS % (AUTO) 34.1 % (42-78); TOTAL CELLS COUNTED % (AUTO) 100 %; WHITE BLOOD COUNT 3.2 10^3/uL (4.0-10.5)
[2018-12-28 07:18] LABS: ANION GAP 10 (5-19); BLOOD UREA NITROGEN 10 mg/dL (7-20); CALCIUM 9.3 mg/dL (8.4-10.2); CARBON DIOXIDE 24 mmol/L (22-30); CHLORIDE 107 mmol/L (98-107); GLUCOSE 105 mg/dL (75-110); POTASSIUM 4.2 mmol/L (3.6-5.0); TRIGLYCERIDES 109 mg/dL (<150)
[2018-12-28 07:28] LABS: DIRECT LDL 132 mg/dL (<100)
[2018-12-28] MEDS ORDERED: INFLUENZA QUAD (6MOS+) 2019-20 VAC 0.5 ML SYR IM ONE (08:00)
--- NOTE | 2018-12-28 10:07 | PDOC H&P ---
History of Present Illness Admission Date/PCP: 12/27/18 13:53 MARILYN POE MD History of Present Illness: MYA ROCK is a 58 year old female who was admitted through the emergency room yesterday for atrial fib with RVR. Patient has a history of atrial fib that started back in 2015. He was in [place] at the time and at that time had a cardiac cath that was negative according to the patient and was placed on beta-aleja. This year she saw someone locally and they stopped the beta- aleja because she was no longer in atrial fib . Patient states this morning when she woke up she had potation's lightheadedness diaphoresis however very little chest pain spoken to the gift consultant and he agrees with admitting her for rate control and her atrial fib dates he be glad to see her as an outpatient. 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 She does not smoke. Family history of heart disease father with an [place] grandmother had a CABG and sister has hypertension Patient has a Cardizem drip, will be placed beta-aleja and statin Past Medical History Cardiac Medical History: Reports: Atrial Fibrillation Pulmonary Medical History: Reports: Asthma Endocrine Medical History: Reports: None GI Medical History: Reports: Gastroesophageal Reflux Disease Psychiatric Medical History: Denies: Depression Hematology: Reports: Anemia Infectious Medical History: Reports: HIV Past Surgical History Past Surgical History: Reports: Cardiac Catheterization - Apr 2015, unrema rkable., Section, Hysterectomy, Orthopedic Surgery - L ankle, Tubal Ligation Social History Smoking Status: Former Smoker Number of Years Smokin Last Time Smoked: 12/10/2008 Frequency of Alcohol Use: None Hx Recreational Drug Use: Yes Drugs: Marijuana Hx Prescription Drug Abuse: No - Advance Directive Resuscitation Status: Full Code Family History Family History: Reviewed & Not Pertinent, CAD, Hypertension Parental Family History Reviewed: No Children Family History Reviewed: No Sibling(s) Family History Reviewed.: No Medication/Allergy Home Medications: Bictegrav/Emtricit/Tenofov Ala [Biktarvy 50-200-25 mg Tablet] 1 tab PO DAILY 12/27/18 Allergies/Adverse Reactions: ciprofloxacin [From Cipro] Allergy (Mild, Verified 11/22/18 10:09) Hives ciprofloxacin HCl [From Cipro] Allergy (Mild, Verified 11/22/18 10:09) Hives Physical Exam Vital Signs: Temp Pulse Resp BP Pulse Ox 98.4 F 86 20 129/80 H 97 12/28/18 03:23 12/28/18 07:00 12/28/18 03:23 12/28/18 06:00 12/28/18 03:23 Intake & Output 12/27/18 12/28/18 12/29/18 06:59 06:59 06:59 Intake Total 2084 Balance 2084 Weight 118.9 kg General appearance: PRESENT: no acute distress, other - Sister is in the room patient is talking in full sentences no respiratory distress no complaint of chest pain Respiratory exam: PRESENT: clear to auscultation andres. ABSENT: rales, rhonchi, wheezes Cardiovascular exam: PRESENT: irregular rhythm Neurological exam: PRESENT: alert, awake, oriented to person, oriented to place, oriented to time, oriented to situation, CN II-XII grossly intact. ABSENT: motor sensory deficit Psychiatric exam: PRESENT: appropriate affect, normal mood, other - Patient is very calm, well-educated. ABSENT: homicidal ideation, suicidal ideation Results Laboratory Results: 12/28/18 06:06 12/28/18 06:06 12/27/18 12/27/18 12/27/18 09:08 09:08 09:08 WBC RBC Hgb Hct MCV MCH MCHC RDW Plt Count Seg Neutrophils % Sodium 143.4 Potassium 3.7 Chloride 108 H Carbon Dioxide 29 Anion Gap 6 BUN 12 Creatinine 0.69 Est GFR ( Amer) > 60 Glucose 109 Calcium 9.2 Magnesium Total Bilirubin 0.5 AST 23 Alkaline Phosphatase 71 Total Protein 7.8 Albumin 4.3 Triglycerides Cholesterol LDL Cholesterol Direct VLDL Cholesterol HDL Cholesterol TSH 1.12 Urine Color COLORLESS Urine Appearance CLEAR Urine pH 7.0 Ur Specific [place] 1.004 Urine Protein NEGATIVE Urine Glucose (UA) NEGATIVE Urine Ketones NEGATIVE Urine Blood SMALL H Urine Nitrite NEGATIVE Ur Leukocyte Esterase NEGATIVE Urine WBC (Auto) 0 12/28/18 12/28/18 06:06 06:06 WBC 3.2 L RBC 3.68 L Hgb 11.4 L Hct 34.7 L MCV 94 MCH 31.0 MCHC 32.9 RDW 13.9 Plt Count 254 Seg Neutrophils % 34.1 L Sodium 140.6 Potassium 4.2 Chloride 107 Carbon Dioxide 24 Anion Gap 10 BUN 10 Creatinine 0.63 Est GFR ( Amer) > 60 Glucose 105 Calcium 9.3 Magnesium 1.9 Total Bilirubin AST Alkaline Phosphatase Total Protein Albumin Triglycerides 109 Cholesterol 226.80 H LDL Cholesterol Direct 132 H VLDL Cholesterol 22.0 HDL Cholesterol 49 TSH Urine Color Urine Appearance Urine pH Ur Specific [place] Urine Protein Urine Glucose (UA) Urine Ketones Urine Blood Urine Nitrite Ur Leukocyte Esterase Urine WBC (Auto) 12/27/18 12/27/18 12/27/18 09:08 09:08 11:30 Creatine Kinase 380 H CK-MB (CK-2) 2.84 Troponin I 0.039 0.184 12/27/18 16:39 Creatine Kinase CK-MB (CK-2) 3.44 Troponin I 0.349 Impressions: Chest X-Ray 12/27/18 10:14 IMPRESSION: STABLE MILD CARDIAC ENLARGEMENT. NO ACUTE RADIOGRAPHIC FINDING IN THE CHEST. Assessment and Plan - Diagnosis (1) HIV disease Is this a current diagnosis for this admission?: Yes (2) Atrial fibrillation with rapid ventricular response Is this a current diagnosis for this admission?: Yes (3) Elevated troponin level Is this a current diagnosis for this admission?: Yes (4) High blood pressure Qualifiers: Hypertension type: essential hypertension Qualified Code(s): I10 - Essential (primary) hypertension Is this a current diagnosis for this admission?: Yes - Plan Summary Summary: In the [facility] drip, also place the patient on metoprolol, VT prophylaxis, aspirin daily, Lipitor 20 mg I spoke with cardiology they are available if needed and will be glad to see the patient as an outpatient. She is medically stable. Will follow troponins however I doubt this is ischemic is rather based on rate and fibrillation - Time Time Spent with patient: 35 or more minutes
[2018-12-28] MEDS: ENOXAPARIN SODIUM INJ 40 MG/0.4 ML DISP.SYRIN SUBCUT SCH (11:23)
[2018-12-28] MEDS: FAMOTIDINE 20 MG TABLET PO SCH (11:23)
[2018-12-28] MEDS ORDERED: APIXABAN 5 MG TABLET PO ONE (11:30)
[2018-12-28] MEDS ORDERED: METOPROLOL SUCCINATE 50 MG TAB.SR.24H PO ONE (11:30)
[2018-12-28 13:00] VITALS: BP 140/96
--- NOTE | 2018-12-28 16:42 | PDOC DISCHARGE SUMMARY ---
Impression - Admit/DC Date/PCP Admission Date/Primary Care Provider: 12/27/18 13:53 MARILYN POE MD Discharge Date: 12/28/18 - Discharge Diagnosis (1) HIV disease Is this a current diagnosis for this admission?: Yes (2) Atrial fibrillation with rapid ventricular response Is this a current diagnosis for this admission?: Yes (3) Elevated troponin level Is this a current diagnosis for this admission?: Yes (4) High blood pressure Is this a current diagnosis for this admission?: Yes - Assessment Summary: In the Cardizem drip, also place the patient on metoprolol, VT prophylaxis, aspirin daily, Lipitor 20 mg I spoke with cardiology they are available if needed and will be glad to see the patient as an outpatient. She is medically stable. Will follow troponins however I doubt this is ischemic is rather based on rate and fibrillation 12/28/2018 Admitted for A. fib with RVR. First time she had this was 2015. He was told to stop her Cardizem last year. Came into the emergency room and was placed on Cardizem drip. P.o. metoprolol was added Cardizem drip was discontinued when she converted to sinus rhythm with a heart rate between approximately 70 and 90. 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 She is to not go to work on Sunday or Sunday She seems happy with her medical care - Additional Information Resuscitation Status: Full Code Discharge Diet: As Tolerated Discharge Activity: Balance Activity w/Rest Referrals: NUVIA SLAUGHTER MD [ACTIVE STAFF] - (7-10 days) MARILYN POE MD [Primary Care Provider] - Follow up as needed Prescriptions: Apixaban [Eliquis 5 mg Tablet] 5 mg PO BID #60 tablet Atorvastatin Calcium [Lipitor 20 mg Tablet] 20 mg PO QHS #30 tablet Metoprolol Succinate [Toprol Xl 25 mg Tab.sr] 25 mg PO DAILY #30 tab.sr.24h Home Medications: Bictegrav/Emtricit/Tenofov Ala [Biktarvy 50-200-25 mg Tablet] 1 tab PO DAILY 12/27/18 Apixaban [Eliquis 5 mg Tablet] 5 mg PO BID #60 tablet 12/28/18 Atorvastatin Calcium [Lipitor 20 mg Tablet] 20 mg PO QHS #30 tablet 12/28/18 Metoprolol Succinate [Toprol Xl 25 mg Tab.sr] 25 mg PO DAILY #30 tab.sr.24h 12/28/18 History of Present Illiness History of Present Illness: MYA ROCK is a 58 year old female who was admitted through the emergency room yesterday for atrial fib with RVR. Patient has a history of atrial fib that started back in 2015. He was in [place] at the time and at that time had a cardiac cath that was negative according to the patient and was placed on beta-aleja. This year she saw someone locally and they stopped the beta- aleja because she was no longer in atrial fib . Patient states this morning when she woke up she had potation's lightheadedness diaphoresis however very little chest pain spoken to the fuel testing technician and he agrees with admitting her for rate control and her atrial fib dates he be glad to see her as an outpatient. 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 She does not smoke. Family history of heart disease father with an [place] grandmother had a CABG and sister has hypertension Patient has a Cardizem drip, will be placed beta-aleja and statin Physical Exam Vital Signs: Temp Pulse Resp BP Pulse Ox 98.4 F 90 20 140/96 H 97 12/28/18 13:25 12/28/18 13:25 12/28/18 13:25 12/28/18 13:25 12/28/18 13:25 Intake & Output 12/27/18 12/28/18 12/29/18 06:59 06:59 06:59 Intake Total 2084 Balance 2084 Weight 118.9 kg Results Laboratory Results: WBC 3.2 10^3/uL (4.0-10.5) L 12/28/18 06:06 RBC 3.68 10^6/uL (3.72-5.28) L 12/28/18 06:06 Hgb 11.4 g/dL (12.0-15.5) L 12/28/18 06:06 Hct 34.7 % (36.0-47.0) L 12/28/18 06:06 MCV 94 fl (80-97) 12/28/18 06:06 MCH 31.0 pg (27.0-33.4) 12/28/18 06:06 MCHC 32.9 g/dL (32.0-36.0) 12/28/18 06:06 RDW 13.9 % (11.5-14.0) 12/28/18 06:06 Plt Count 254 10^3/uL (150-450) 12/28/18 06:06 Lymph % (Auto) 54.7 % (13-45) H 12/28/18 06:06 [place] % (Auto) 10.6 % (3-13) 12/28/18 06:06 Eos % (Auto) 0.4 % (0-6) 12/28/18 06:06 Baso % (Auto) 0.2 % (0-2) 12/28/18 06:06 Absolute Neuts (auto) 1.1 10^3/uL (1.7-8.2) L 12/28/18 06:06 Absolute Lymphs (auto) 1.8 10^3/uL (0.5-4.7) 12/28/18 06:06 Absolute Monos (auto) 0.3 10^3/uL (0.1-1.4) 12/28/18 06:06 Absolute Eos (auto) 0.0 10^3/uL (0.0-0.6) 12/28/18 06:06 Absolute Basos (auto) 0.0 10^3/uL (0.0-0.2) 12/28/18 06:06 Seg Neutrophils % 34.1 % (42-78) L 12/28/18 06:06 PT 12.9 SEC (11.4-15.4) 12/27/18 09:08 INR 0.97 12/27/18 09:08 APTT 30.6 SEC (23.5-35.8) 12/28/18 06:06 Sodium 140.6 mmol/L (137-145) 12/28/18 06:06 Potassium 4.2 mmol/L (3.6-5.0) 12/28/18 06:06 Chloride 107 mmol/L (98-107) 12/28/18 06:06 Carbon Dioxide 24 mmol/L (22-30) 12/28/18 06:06 Anion Gap 10 (5-19) 12/28/18 06:06 BUN 10 mg/dL (7-20) 12/28/18 06:06 Creatinine 0.63 mg/dL (0.52-1.25) 12/28/18 06:06 Est GFR ( Amer) > 60 (>60) 12/28/18 06:06 Est GFR (MDRD) Non-Af > 60 (>60) 12/28/18 06:06 Glucose 105 mg/dL (75-110) 12/28/18 06:06 Hemoglobin A1c % 5.7 % (4.7-6.0) 12/28/18 06:06 Calcium 9.3 mg/dL (8.4-10.2) 12/28/18 06:06 Magnesium 1.9 mg/dL (1.6-2.3) 12/28/18 06:06 Total Bilirubin 0.5 mg/dL (0.2-1.3) 12/27/18 09:08 Direct Bilirubin 0.2 mg/dL (0.0-0.4) 12/27/18 09:08 Neonat Total Bilirubin Not Reportable 12/27/18 09:08 Neonat Direct Bilirubin Not Reportable 12/27/18 09:08 Neonat Indirect Bili Not Reportable 12/27/18 09:08 AST 23 U/L (14-36) 12/27/18 09:08 ALT 12 U/L (<35) 12/27/18 09:08 Alkaline Phosphatase 71 U/L (38-126) 12/27/18 09:08 Creatine Kinase 380 U/L (30-135) H 12/27/18 09:08 CK-MB (CK-2) 3.44 ng/mL (<4.55) 12/27/18 16:39 Troponin I 0.349 ng/mL 12/27/18 16:39 Total Protein 7.8 g/dL (6.3-8.2) 12/27/18 09:08 Albumin 4.3 g/dL (3.5-5.0) 12/27/18 09:08 Triglycerides 109 mg/dL (<150) 12/28/18 06:06 Cholesterol 226.80 mg/dL (0-200) H 12/28/18 06:06 LDL Cholesterol Direct 132 mg/dL (<100) H 12/28/18 06:06 VLDL Cholesterol 22.0 mg/dL (10-31) 12/28/18 06:06 HDL Cholesterol 49 mg/dL (>40) 12/28/18 06:06 TSH 1.12 uIU/mL (0.47-4.68) 12/27/18 09:08 Urine Color COLORLESS 12/27/18 09:08 Urine Appearance CLEAR 12/27/18 09:08 Urine pH 7.0 (5.0-9.0) 12/27/18 09:08 Ur Specific [place] 1.004 12/27/18 09:08 Urine Protein NEGATIVE mg/dL (NEGATIVE) 12/27/18 09:08 Urine Glucose (UA) NEGATIVE mg/dL (NEGATIVE) 12/27/18 09:08 Urine Ketones NEGATIVE mg/dL (NEGATIVE) 12/27/18 09:08 Urine Blood SMALL (NEGATIVE) H 12/27/18 09:08 Urine Nitrite NEGATIVE (NEGATIVE) 12/27/18 09:08 Urine Bilirubin NEGATIVE (NEGATIVE) 12/27/18 09:08 Urine Urobilinogen NEGATIVE mg/dL (<2.0) 12/27/18 09:08 Ur Leukocyte Esterase NEGATIVE (NEGATIVE) 12/27/18 09:08 Urine WBC (Auto) 0 /HPF 12/27/18 09:08 Squamous Epi Cells Auto <1 /HPF 12/27/18 09:08 Urine Mucus (Auto) RARE /LPF 12/27/18 09:08 Urine Ascorbic Acid NEGATIVE (NEGATIVE) 12/27/18 09:08 12/27/18 12/27/18 12/27/18 09:08 11:30 16:39 CK-MB (CK-2) 2.84 3.44 Troponin I 0.039 0.184 0.349 Impressions: Chest X-Ray 12/27/18 10:14 IMPRESSION: STABLE MILD CARDIAC ENLARGEMENT. NO ACUTE RADIOGRAPHIC FINDING IN THE CHEST. Stroke Is this a Stroke Patient?: No Acute Heart Failure - Is this a Heart Failure Patient?: No
--- NOTE | 2018-12-29 00:31 | EKG REPORT ---
SEVERITY:- ABNORMAL ECG - ATRIAL FIBRILLATION VENTRICULAR PREMATURE COMPLEX RIGHT BUNDLE BRANCH BLOCK LVH WITH IVCD AND SECONDARY REPOL ABNRM : Confirmed by: Trae Villafana 29-Dec-2018 00:30:29
--- NOTE | 2018-12-29 00:31 | EKG REPORT ---
SEVERITY:- ABNORMAL ECG - ATRIAL FIBRILLATION, V-RATE 64-84 VENTRICULAR BIGEMINY RBBB AND LAFB LEFT VENTRICULAR HYPERTROPHY : Confirmed by: Trae Villafana 29-Dec-2018 00:30:24
== END 2018-12-28 14:14 | disposition home or self-care (01) ==
LOC: ER 08:59 → EH 13:53 → INTOOBSV 13:53 → 3W 21:02
PROVIDERS: ADMIT Hospitalist; ATTEND Hospitalist
DX: I48.91 Unspecified atrial fibrillation (principal); R07.9 Chest pain, unspecified; B20 Human immunodeficiency virus [HIV] disease; R74.8 Abnormal levels of other serum enzymes; I10 Essential (primary) hypertension; J45.909 Unspecified asthma, uncomplicated; K21.9 Gastro-esophageal reflux disease without esophagitis; D64.9 Anemia, unspecified; F12.90 Cannabis use, unspecified, uncomplicated; Z79.01 Long term (current) use of anticoagulants; Z88.3 Allergy status to other anti-infective agents; Z82.49 Family history of ischemic heart disease and other diseases of the circulatory system; Z87.891 Personal history of nicotine dependence; Z23 Encounter for immunization
CPT/HCPCS: 93005 ×2; 99291; 96361; 96374; 96375; 36415 ×2; 82553; 82550; 83735; 84443; 85025 ×2; 85610; 85730; 80048; 80053; 81001; 84484; 83036; 80061; 71045; 90686; 93010 ×2; 90471; G0378 ×3; J3490 ×4; J1650; J7030

== ENCOUNTER 2018-12-30 11:44 | Inpatient (IN) | payer BC ==
[2018-12-30] MEDS ORDERED: ASPIRIN 81 MG TABLET, CHEWABLE PO ONE (12:10)
--- NOTE | 2018-12-30 12:10 | ER Document Report ---
ED Medical Screen (RME) - General Chief Complaint: Chest Pain Stated Complaint: A-FIB Time Seen by Provider: 12/30/18 12:07 Primary Care Provider: MARILYN POE MD [Primary Care Provider] - Follow up as needed Mode of Arrival: Medic Information source: Patient Notes: 58-year-old female presents to ED for continued shortness of breath dizziness palpitations. She states she was seen in the emergency room last week and sent home on Sunday for A. fib and shortness of breath. She states she continues to have the heaviness and pressure in her chest and today she felt the palpitations and chest pain. She states she cannot lay down due to the shortness of breath and when she stands up she is extremely dizzy. Patient is alert oriented respirations regular and unlabored. Pulse at this time is 107 sats are 99 respirations are 19 and blood pressure is 116/69. She states when she was here last time they did give her 3 different medicines but these have not helped her any and she has been sick ever since she went home. She states she had A. fib in 2016 also. I have greeted and performed a rapid initial assessment of this patient. A comprehensive ED assessment and evaluation of the patient, analysis of test results and completion of medical decision making process will be conducted by an additional ED providers. TRAVEL OUTSIDE OF THE [place] IN LAST 30 DAYS: No - Related Data Allergies/Adverse Reactions: ciprofloxacin [From Cipro] Allergy (Mild, Verified 11/22/18 10:09) Hives ciprofloxacin HCl [From Cipro] Allergy (Mild, Verified 11/22/18 10:09) Hives Past Medical History - Past Medical History Cardiac Medical History: Reports: Hx Atrial Fibrillation Pulmonary Medical History: Reports: Hx Asthma Renal/ Medical History: Denies: Hx Peritoneal Dialysis GI Medical History: Reports: Hx Gastroesophageal Reflux Disease Psychiatric Medical History: Denies: Hx Depression Infectious Medical History: Reports: Hx HIV Past Surgical History: Reports: Hx Cardiac Catheterization - Apr 2015, unremarkable., Hx Section, Hx Hysterectomy, Hx Orthopedic Surgery - L ankle, Hx Tubal Ligation - Immunizations Immunizations up to date: Yes Hx Diphtheria, Pertussis, Tetanus Vaccination: Yes - 2007 Course - Laboratory Result Diagrams: 12/30/18 11:50 12/30/18 11:50 Doctor's Discharge - Discharge Referrals: MARILYN POE MD [Primary Care Provider] - Follow up as needed
[2018-12-30 12:18] LABS: ABSOLUTE LYMPHOCYTES (AUTO) 2.4 10^3/uL (0.5-4.7); ABSOLUTE MONOCYTES (AUTO) 0.5 10^3/uL (0.1-1.4); ABSOLUTE NEUT (AUTO) 1.2 10^3/uL (1.7-8.2); BASOPHILS % (AUTO) 0.6 % (0-2); EOSINOPHILS % (AUTO) 0.1 % (0-6); HEMATOCRIT 35.3 % (36.0-47.0); HEMOGLOBIN 11.5 g/dL (12.0-15.5); LYMPHOCYTES % (AUTO) 57.7 % (13-45); MEAN CORPUSCULAR HEMOGLOBIN 30.9 pg (27.0-33.4); MEAN CORPUSCULAR HGB CONC 32.7 g/dL (32.0-36.0); MEAN CORPUSCULAR VOLUME 95 fl (80-97); MONOCYTES % (AUTO) 11.7 % (3-13); PLATELET COUNT 281 10^3/uL (150-450); RED BLOOD COUNT 3.73 10^6/uL (3.72-5.28); RED CELL DISTRIBUTION WIDTH 13.9 % (11.5-14.0); SEGMENTED NEUTROPHILS % (AUTO) 29.9 % (42-78); TOTAL CELLS COUNTED % (AUTO) 100 %; WHITE BLOOD COUNT 4.1 10^3/uL (4.0-10.5)
[2018-12-30 12:28] LABS: ALBUMIN 3.8 g/dL (3.5-5.0); ALKALINE PHOSPHATASE 57 U/L (38-126); ANION GAP 9 (5-19); ASPARTATE AMINO TRANSFERASE 24 U/L (14-36); BILIRUBIN,DIRECT 0.1 mg/dL (0.0-0.4); BILIRUBIN,TOTAL 0.4 mg/dL (0.2-1.3); BLOOD UREA NITROGEN 20 mg/dL (7-20); CALCIUM 8.8 mg/dL (8.4-10.2); CARBON DIOXIDE 25 mmol/L (22-30); CHLORIDE 112 mmol/L (98-107); CREATINE KINASE 178 U/L (30-135); GLUCOSE 104 mg/dL (75-110); INTERNATIONAL RATION (INR) 1.29; POTASSIUM 3.7 mmol/L (3.6-5.0); PROTHROMBIN TIME 16.1 SEC (11.4-15.4)
[2018-12-30 12:29] LABS: PARTIAL THROMBOPLASTIN TIME 32.4 SEC (23.5-35.8)
[2018-12-30 12:43] LABS: CREATINE KINASE MB 1.38 ng/mL (<4.55); TROPONIN I 0.024 ng/mL
[2018-12-30] MEDS ORDERED: METOPROLOL TARTRATE PF/INJ 5 MG/5 ML SDV IV ONE ×2 (14:16→14:24)
--- NOTE | 2018-12-30 14:23 | RADIOLOGY REPORT (SQ) ---
EXAM DESCRIPTION: CTA CHEST COMPLETED DATE/TIME: 12/30/2018 1:46 pm REASON FOR STUDY: cp/sob COMPARISON: None. TECHNIQUE: CT scan of the chest performed using helical scanning technique with dynamic intravenous contrast injection. Images reviewed with lung, soft tissue and bone windows. Reconstructed coronal and sagittal MPR images reviewed. Additional 3 dimensional post-processing performed to develop Maximal Intensity Projection images (NC P). All images stored on PACS. All CT scanners at this facility use dose modulation, iterative reconstruction, and/or weight based d osing when appropriate to reduce radiation dose to as low as reasonably achievable (ALARA). [facility]: Dose Right [facility]: CareDose [facility]: Dose Right [facility]: Teradose 4D [facility]: [email or web address] CONTRAST TYPE AND DOSE: contrast/concentration: Isovue 350.00 mg/ml; Total Contrast Delivered: 71.0 ml; Total Saline Delivered: 70.0 ml Contrast bolus optimized for the pulmonary arteries. Not diagnostic for the aorta. RENAL FUNCTION: BUN 20 creatinine 1.07 RADIATION DOSE: CT Rad equipment meets quality standard of care and radiation dose reduction techniq ues were employed. CTDIvol: 28.0 - 33.1 mGy. DLP: 954 mGy-cm. . LIMITATIONS: None. FINDINGS: LUNGS AND PLEURA: No masses, infiltrates, or pneumothorax. No pleural effusions or pleura l calcifications. AORTA AND GREAT VESSELS: No aneurysm. Contrast bolus not optimized for the aorta. HEART: Cardiomegaly. No pericardial effusion. No significant coronary artery calcifications. PULMONARY ARTERIES: No emboli visualized in the main pulmonary arteries or the segmental branches. HILAR AND MEDIASTINAL STRUCTURES: No identified masses or abnormal nodes. HARDWARE: None in the chest. UPPER ABDOMEN: No significant findings. Limited exam. THYROID AND OTHER SOFT TISSUES: No masses. No adenopathy. BONES: No acute or significant finding. 3D MIPS: Confirm above findings. OTHER: No other significant finding. IMPRESSION: There is no evidence of pulmonary embolus. There is no aortic aneurysm. There is cardi omegaly with no eddie pulmonary edema. COMMENT: Quality ID # [id number]: Final reports with documentation of one or more dose reduction techniques (e.g., Automated exposure control, adjustment of the mA and/or kV according to patient size, use of iterative reconstruction technique) TECHNICAL DOCUMENTATION: JOB ID: [id number]- All Rights Reserved Reading location - IP/workstation name: [email or web address]
--- NOTE | 2018-12-30 15:04 | ER Document Report ---
ED Cardiac - General Chief Complaint: Chest Pain Stated Complaint: A-FIB Time Seen by Provider: 12/30/18 12:07 Primary Care Provider: NUVIA SLAUGHTER MD [ACTIVE STAFF] - 01/07/19 12:00 pm MARILYN POE MD [Primary Care Provider] - 01/02/19 8:15 am (01/02/19 @ 8:15) Mode of Arrival: Medic Information source: Patient TRAVEL OUTSIDE OF THE [place] IN LAST 30 DAYS: No - HPI Notes: Patient was discharged approximately 48 hours ago from this facility with a diagnosis of new onset atrial fibrillation with RVR. She states she noticed this morning that she was having palpitations shortness of breath chest tightness weakness and dizziness. She states that she did not feel stable driving herself here so she called the ambulance. Medics state that her heart rate was in the 150s approximately and they gave her 1 dose of Cardizem in route which brought the heart rate down around 100. Upon arrival here patient states that her symptoms are significantly better as far as the chest pain shortness of breath and weakness. She is still having some palpitations. She denies any previous history of heart attacks. She denies any recent nausea vomiting or diarrhea. No cough cold or congestion. Symptoms were intermittent. There are moderate to severe. They are made better with Cardizem and exertion made them worse. The symptoms did not radiate. Symptoms consisted of the above-mentioned symptoms. - Related Data Allergies/Adverse Reactions: ciprofloxacin [From Cipro] Allergy (Mild, Verified 11/22/18 10:09) Hives ciprofloxacin HCl [From Cipro] Allergy (Mild, Verified 11/22/18 10:09) Hives Home Medications: Atorvastatin 20 mg, Metoprlol 25 mg ACT, Eiquis 5 mg BMS. Past Medical History - General Information source: Patient - Social History Smoking Status: Former Smoker Chew tobacco use (# tins/day): No Frequency of alcohol use: None Drug Abuse: None Family History: Reviewed & Not Pertinent, CAD, Hypertension Patient has suicidal ideation: No Patient has homicidal ideation: No - Past Medical History Cardiac Medical History: Reports: Hx Atrial Fibrillation Pulmonary Medical History: Reports: Hx Asthma Renal/ Medical History: Denies: Hx Peritoneal Dialysis GI Medical History: Reports: Hx Gastroesophageal Reflux Disease Psychiatric Medical History: Denies: Hx Depression Infectious Medical History: Reports: Hx HIV Past Surgical History: Reports: Hx Cardiac Catheterization - Apr 2015, unremarkable., Hx Section, Hx Hysterectomy, Hx Orthopedic Surgery - L ankle, Hx Tubal Ligation - Immunizations Immunizations up to date: Yes Hx Diphtheria, Pertussis, Tetanus Vaccination: Yes - 2007 Hx Pneumococcal Vaccination: 03/12/17 Review of Systems - Review of Systems Constitutional: Malaise, Weakness Cardiovascular: Palpitations, Heart racing Respiratory: Short of breath. denies: Cough Gastrointestinal: denies: Diarrhea, Vomiting -: Yes All other systems reviewed and negative Physical Exam - Vital signs Vitals: Pulse Ox 99 12/30/18 11:44 Interpretation: Normal - General General appearance: Appears well, Alert - HEENT Head: Normocephalic, Atraumatic Eyes: Normal Pupils: PERRL - Respiratory Respiratory status: No respiratory distress Chest status: Nontender Breath sounds: Normal Chest palpation: Normal - Cardiovascular Rhythm: Irregularly irregular, Tachycardia Heart sounds: Normal auscultation Murmur: No - Abdominal Inspection: Normal Distension: No distension Bowel sounds: Normal Tenderness: Nontender Organomegaly: No organomegaly - Back Back: Normal, Nontender - Extremities General upper extremity: Normal inspection, Nontender, Normal color, Normal ROM, Normal temperature General lower extremity: Normal inspection, Nontender, Normal color, Normal ROM, Normal temperature, Normal weight bearing. No: Joaquim's sign - Neurological Neuro grossly intact: Yes Cognition: Normal Orientation: AAOx4 [place] Coma Scale Eye Opening: Spontaneous [place] Coma Scale Verbal: Oriented [place] Coma Scale Motor: Obeys Commands Melinda Coma Scale Total: 15 Speech: Normal Motor strength normal: LUE, RUE, LLE, RLE Sensory: Normal - Psychological Associated symptoms: Normal affect, Normal mood - Skin Skin Temperature: Warm Skin Moisture: Dry Skin Color: Normal Course - Re-evaluation Re-evalutation: 12/30/18 15:02 Patient called paramedics for A. fib with RVR. Patient was recently placed on a beta-aleja however it does not appear that the beta-aleja is managing her symptoms. While here in the emergency department she continues to have bouts of RVR. I have given her 1 dose of metoprolol IV which seems to have been under better control. She has had some symptoms here of shortness of breath and chest tightness again with the RVR here. Currently she has none. I have discussed the case with the hospitalist and it seems prudent for patient to be admitted for trial of calcium channel aleja in addition or possibly instead of beta- aleja. - Vital Signs Vital signs: Temp Pulse Resp BP Pulse Ox 24 H 114/89 H 84 L 12/30/18 14:32 12/30/18 14:32 12/30/18 14:32 - Laboratory Result Diagrams: 12/30/18 11:50 12/30/18 11:50 Laboratory results interpreted by me: 12/30/18 12/30/18 12/30/18 11:50 11:50 11:50 Hgb 11.5 L Hct 35.3 L Lymph % (Auto) 57.7 H Absolute Neuts (auto) 1.2 L Seg Neutrophils % 29.9 L PT 16.1 H Sodium 145.7 H Chloride 112 H Est GFR (MDRD) Non-Af 53 L Creatine Kinase 178 H - Diagnostic Test Radiology reviewed: Image reviewed, Reports reviewed - EKG Interpretation by Me Rate: Tachycardia - 116 Rhythm: A.Fib [place]/QRS: RBBB Discharge - Discharge Clinical Impression: Atrial fibrillation with rapid ventricular response Condition: Stable Disposition: ADMITTED INPATIENT Admitting Provider: Oziel (Hospitalist) Unit Admitted: Telemetry Referrals: NUVIA SLAUGHTER MD [ACTIVE STAFF] - 01/07/19 12:00 pm MARILYN POE MD [Primary Care Provider] - 01/02/19 8:15 am (01/02/19 @ 8:15)
[2018-12-30] MEDS ORDERED: TEMAZEPAM 15 MG CAPSULE PO PRN (15:22)
[2018-12-30] MEDS ORDERED: OXYCODONE-ACETAMINOPHEN 5-325 MG TABLET PO PRN (15:22)
[2018-12-30] MEDS ORDERED: PROMETHAZINE HCL INJ 25 MG/1 ML VIAL IV PRN (15:22)
[2018-12-30] MEDS ORDERED: ACETAMINOPHEN 325 MG TABLET PO PRN (15:22)
[2018-12-30] MEDS ORDERED: MAG HYDROX/AL HYDROX/SIMETH SUSP 30 ML UDCUP PO PRN (15:22)
[2018-12-30] MEDS: DILTIAZEM HCL/D5W 125 MG/125 ML RTUINJ IV PRN (15:42)
--- NOTE | 2018-12-30 16:56 | EKG REPORT ---
SEVERITY:- ABNORMAL ECG - ATRIAL FIBRILLATION, V-RATE 70-101 VENTRICULAR PREMATURE COMPLEX RBBB AND LAFB LEFT VENTRICULAR HYPERTROPHY : Confirmed by: Swapna Mcrae MD 30-Dec-2018 16:55:37
--- NOTE | 2018-12-30 16:56 | EKG REPORT ---
SEVERITY:- ABNORMAL ECG - ATRIAL FIBRILLATION, V-RATE 84-169 RBBB AND LAFB LEFT VENTRICULAR HYPERTROPHY : Confirmed by: Swapna Mcrae MD 30-Dec-2018 16:55:30
[2018-12-30] MEDS: APIXABAN 5 MG TABLET PO SCH (18:28)
--- NOTE | 2018-12-30 19:07 | PDOC H&P ---
History of Present Illness Admission Date/PCP: 12/30/18 15:15 MARILYN POE MD History of Present Illness: MYA ROCK is a 58 year old female past medical history of HIV, A. fib RVR, used to be on diltiazem, was controlled, diltiazem was DC'd by fish straightener recently, was admitted to [facility] for A. fib RVR, was started on beta-blockers, discharged home 48 hours ago, presenting to ED complaining of palpitations, shortness of breath, orthopnea, weakness and dizziness. In ED he was found to be in A. fib RVR, was given beta-blockers with no improvement. Patient denies any fever, chills, nausea, vomiting, chest pain, diarrhea, constipation or any urinary symptoms. Past Medical History Cardiac Medical History: Reports: Atrial Fibrillation Pulmonary Medical History: Reports: Asthma GI Medical History: Reports: Gastroesophageal Reflux Disease Psychiatric Medical History: Denies: Depression Hematology: Reports: Anemia Infectious Medical History: Reports: HIV Past Surgical History Past Surgical History: Reports: Cardiac Catheterization - Apr 2015, unremarkable., Section, Hysterectomy, Orthopedic Surgery - L ankle, Tubal Ligation Social History Smoking Status: Former Smoker Electronic Cigarette use?: No Frequency of Alcohol Use: None Hx Recreational Drug Use: Yes Drugs: Marijuana Hx Prescription Drug Abuse: No - Advance Directive Resuscitation Status: Full Code Family History Family History: Reviewed & Not Pertinent, CAD, Hypertension Parental Family History Reviewed: Yes Children Family History Reviewed: Yes Sibling(s) Family History Reviewed.: Yes Medication/Allergy Home Medications: Bictegrav/Emtricit/Tenofov Ala [Biktarvy 50-200-25 mg Tablet] 1 tab PO DAILY 12/27/18 Apixaban [Eliquis 5 mg Tablet] 5 mg PO BID #60 tablet 12/28/18 Atorvastatin Calcium [Lipitor 20 mg Tablet] 20 mg PO QHS #30 tablet 12/28/18 Metoprolol Succinate [Toprol Xl 25 mg Tab.sr] 25 mg PO DAILY #30 tab.sr.24h 12/28/18 Allergies/Adverse Reactions: ciprofloxacin [From Cipro] Allergy (Mild, Verified 11/22/18 10:09) Hives ciprofloxacin HCl [From Cipro] Allergy (Mild, Verified 11/22/18 10:09) Hives Physical Exam Vital Signs: Temp Pulse Resp BP Pulse Ox 98.0 F 111 H 18 133/80 H 100 12/30/18 18:26 12/30/18 18:39 12/30/18 18:26 12/30/18 18:26 12/30/18 18:26 Intake & Output 12/29/18 12/30/18 12/31/18 06:59 06:59 06:59 Intake Total 22 Balance 22 Weight 118.6 kg General appearance: PRESENT: morbidly obese Head exam: PRESENT: atraumatic, normocephalic Respiratory exam: PRESENT: clear to auscultation andres. ABSENT: rales, rhonchi, wheezes Cardiovascular exam: PRESENT: irregular rhythm. ABSENT: diastolic murmur, rubs, systolic murmur GI/Abdominal exam: PRESENT: normal bowel sounds, soft. ABSENT: distended, guarding, mass, organolmegaly, rebound, tenderness Neurological exam: PRESENT: alert, awake, oriented to person, oriented to place, oriented to time, oriented to situation, CN II-XII grossly intact. ABSENT: motor sensory deficit Results Laboratory Results: 12/30/18 11:50 12/30/18 11:50 12/30/18 12/30/18 12/30/18 11:50 11:50 11:50 WBC 4.1 RBC 3.73 Hgb 11.5 L Hct 35.3 L MCV 95 MCH 30.9 MCHC 32.7 RDW 13.9 Plt Count 281 Seg Neutrophils % 29.9 L Sodium 145.7 H Potassium 3.7 Chloride 112 H Carbon Dioxide 25 Anion Gap 9 BUN 20 Creatinine 1.07 Est GFR ( Amer) > 60 Glucose 104 Calcium 8.8 Magnesium 1.8 Total Bilirubin 0.4 AST 24 Alkaline Phosphatase 57 Total Protein 7.0 Albumin 3.8 12/30/18 12/30/18 12/30/18 11:50 11:50 11:50 Creatine Kinase 178 H CK-MB (CK-2) 1.38 Troponin I 0.024 NT-Pro-B Natriuret Pep 4480 H 12/30/18 15:45 Creatine Kinase CK-MB (CK-2) Troponin I 0.027 NT-Pro-B Natriuret Pep Impressions: Chest/Abdomen CTA 12/30/18 13:23 IMPRESSION: There is no evidence of pulmonary embolus. There is no aortic aneurysm. There is cardiomegaly with no eddie pulmonary edema. Assessment and Plan - Diagnosis (1) Atrial fibrillation with rapid ventricular response Is this a current diagnosis for this admission?: Yes Plan: A. fib RVR. Not responsive to beta-blockers. Anticoagulated. Used to take diltiazem, was stopped by fish straightener recently. Was admitted at [facility] recently, discharged 48 hours ago on beta-blockers. Presenting with orthopnea, palpitation, shortness of breath and lightheadedness. Admit to [facility], we will start on Cardizem drip, and switch to p.o. once appropria te. (2) Acute CHF Qualifiers: Heart failure type: unspecified Qualified Code(s): I50.9 - Heart failure, unspecified Is this a current diagnosis for this admission?: Yes Plan: Likely due to acute A. fib RVR. Denies any history of CAD. Elevated proBNP. Admit to telemetry, IV diuretics, cardiac diet, volume restriction, continue treating underlying A. fib RVR, 2D echo. Consult cardiology if deemed necessary. (3) Elevated troponin level Is this a current diagnosis for this admission?: Yes Plan: Likely due to A. fib RVR superimposed on acute CHF. Denies any history of CAD. CTA negative for any PE. Admit to telemetry, trend troponins, antiplatelets, statins. (4) HIV (human immunodeficiency virus infection) Qualifiers: HIV symptom status: asymptomatic Qualified Code(s): Z21 - Asymptomatic human immunodeficiency virus [HIV] infection status Is this a current diagnosis for this admission?: Yes Plan: Takes HAART. Restart home meds. (5) Acute respiratory failure with hypoxia Is this a current diagnosis for this admission?: Yes Plan: Due to A. fib RVR superimposed over acute CHF exacerbation. Plan as per #1 and #2.
[2018-12-30] MEDS: IPRATROPIUM/ALBUTEROL 0.5-2.5 MG/3 ML AMPUL NEB SCH (20:37)
[2018-12-30] MEDS: FUROSEMIDE INJ/PF 20 MG/2 ML SDV IV SCH (20:42)
[2018-12-30] MEDS: FAMOTIDINE 20 MG TABLET PO SCH (21:05)
[2018-12-30] MEDS: ATORVASTATIN CALCIUM 20 MG TABLET PO SCH (21:05)
[2018-12-31] MEDS: DILTIAZEM HCL/D5W 125 MG/125 ML RTUINJ IV PRN ×2 (00:08→13:04)
[2018-12-31] MEDS: FUROSEMIDE INJ/PF 20 MG/2 ML SDV IV SCH ×2 (05:36→17:31)
[2018-12-31 06:47] LABS: ABSOLUTE LYMPHOCYTES (AUTO) 1.5 10^3/uL (0.5-4.7); ABSOLUTE MONOCYTES (AUTO) 0.4 10^3/uL (0.1-1.4); ABSOLUTE NEUT (AUTO) 1.2 10^3/uL (1.7-8.2); BASOPHILS % (AUTO) 0.6 % (0-2); EOSINOPHILS % (AUTO) 0.2 % (0-6); HEMATOCRIT 34.3 % (36.0-47.0); HEMOGLOBIN 11.5 g/dL (12.0-15.5); LYMPHOCYTES % (AUTO) 48.2 % (13-45); MEAN CORPUSCULAR HEMOGLOBIN 31.4 pg (27.0-33.4); MEAN CORPUSCULAR HGB CONC 33.6 g/dL (32.0-36.0); MEAN CORPUSCULAR VOLUME 93 fl (80-97); MONOCYTES % (AUTO) 12.3 % (3-13); PLATELET COUNT 266 10^3/uL (150-450); RED BLOOD COUNT 3.68 10^6/uL (3.72-5.28); RED CELL DISTRIBUTION WIDTH 13.8 % (11.5-14.0); SEGMENTED NEUTROPHILS % (AUTO) 38.7 % (42-78); TOTAL CELLS COUNTED % (AUTO) 100 %; WHITE BLOOD COUNT 3.2 10^3/uL (4.0-10.5)
[2018-12-31 07:02] LABS: CHOLESTEROL 198.27 mg/dL (0-200); TRIGLYCERIDES 121 mg/dL (<150)
[2018-12-31 07:05] LABS: ANION GAP 9 (5-19); BLOOD UREA NITROGEN 14 mg/dL (7-20); CARBON DIOXIDE 26 mmol/L (22-30); CHLORIDE 107 mmol/L (98-107); GLUCOSE 107 mg/dL (75-110); POTASSIUM 3.6 mmol/L (3.6-5.0)
[2018-12-31 07:13] LABS: DIRECT LDL 126 mg/dL (<100)
[2018-12-31] MEDS: IPRATROPIUM/ALBUTEROL 0.5-2.5 MG/3 ML AMPUL NEB SCH ×3 (08:43→20:38)
[2018-12-31] MEDS ORDERED: (PENDING PHARMACY ID) (Bictegrav/Emtricit/Tenofov Ala [Biktarvy 50-200-25 Mg Tablet] 1 TAB PO SCH (10:00)
[2018-12-31] MEDS: DOCUSATE SODIUM 100 MG/10 ML UDC PO SCH (10:06)
[2018-12-31] MEDS: APIXABAN 5 MG TABLET PO SCH ×2 (10:11→17:31)
[2018-12-31] MEDS: FAMOTIDINE 20 MG TABLET PO SCH ×2 (10:11→21:22)
[2018-12-31] MEDS: ASPIRIN 81 MG TABLET, CHEWABLE PO SCH (10:11)
[2018-12-31] MEDS: DILTIAZEM HCL 30 MG TABLET PO SCH ×3 (11:39→21:22)
[2018-12-31] MEDS ORDERED: METOPROLOL TARTRATE PF/INJ 5 MG/5 ML SDV IV ONE ×2 (12:21→12:45)
--- NOTE | 2018-12-31 15:45 | PDOC PROGRESS REPORT ---
Subjective Progress Note for:: 12/31/18 Subjective:: This is a 58-year-old female who was recently discharged for A. fib with RVR. She was readmitted after presenting with A. fib and RVR again. Patient was started on Cardizem drip. She is also recently discharged on Eliquis. No acute event overnight. Patient is currently on Cardizem drip. She is currently in A. fib has been mostly running in the 80s to 90s this morning with the heart rate going to 140s when she moves. She denies chest pain or shortness of breath. We will restart her on p.o. Cardizem and hopefully wean her off the Cardizem drip today. Reason For Visit: AFIB RVR Physical Exam Vital Signs: Temp Pulse Resp BP Pulse Ox 97.9 F 80 16 121/72 94 12/31/18 11:48 12/31/18 14:00 12/31/18 13:50 12/31/18 14:00 12/31/18 13:50 Intake & Output 12/30/18 12/31/18 01/01/19 06:59 06:59 06:59 Intake Total 103 134 Balance 103 134 Weight 256 lb 9.889 oz General appearance: PRESENT: no acute distress, well-developed, well-nourished Head exam: PRESENT: atraumatic, normocephalic Eye exam: PRESENT: conjunctiva pink, EOMI, PERRLA. ABSENT: scleral icterus Ear exam: PRESENT: normal external ear exam Mouth exam: PRESENT: moist, tongue midline Neck exam: ABSENT: carotid bruit, JVD, lymphadenopathy, thyromegaly Respiratory exam: PRESENT: clear to auscultation andres. ABSENT: rales, rhonchi, wheezes Cardiovascular exam: PRESENT: irregular rhythm. ABSENT: systolic murmur Pulses: PRESENT: normal dorsalis pedis pul GI/Abdominal exam: PRESENT: normal bowel sounds, soft. ABSENT: distended, guarding, mass, organolmegaly, rebound, tenderness Rectal exam: PRESENT: deferred Extremities exam: PRESENT: full ROM. ABSENT: calf tenderness, clubbing, pedal edema Neurological exam: PRESENT: alert, awake, oriented to person, oriented to place, oriented to time, oriented to situation, CN II-XII grossly intact. ABSENT: motor sensory deficit Results Laboratory Results: 12/31/18 06:07 12/31/18 06:07 12/31/18 12/31/18 12/31/18 06:07 06:07 06:07 WBC 3.2 L RBC 3.68 L Hgb 11.5 L Hct 34.3 L MCV 93 MCH 31.4 MCHC 33.6 RDW 13.8 Plt Count 266 Seg Neutrophils % 38.7 L Sodium 142.2 Potassium 3.6 Chloride 107 Carbon Dioxide 26 Anion Gap 9 BUN 14 Creatinine 0.79 Est GFR ( Amer) > 60 Glucose 107 Calcium 9.0 Magnesium 1.7 Triglycerides 121 Cholesterol 198.27 LDL Cholesterol Direct 126 H VLDL Cholesterol 24.0 HDL Cholesterol 39 L 12/30/18 12/30/18 12/30/18 11:50 11:50 11:50 Creatine Kinase 178 H CK-MB (CK-2) 1.38 Troponin I 0.024 NT-Pro-B Natriuret Pep 4480 H 12/30/18 12/30/18 12/31/18 15:45 19:23 01:15 Creatine Kinase CK-MB (CK-2) Troponin I 0.027 0.025 0.027 NT-Pro-B Natriuret Pep Impressions: Chest/Abdomen CTA 12/30/18 13:23 IMPRESSION: There is no evidence of pulmonary embolus. There is no aortic a neurysm. There is cardiomegaly with no eddie pulmonary edema. Assessment and Plan - Diagnosis (1) Atrial fibrillation with rapid ventricular response Is this a current diagnosis for this admission?: Yes Plan: Currently on Cardizem drip. We will restart her on p.o. Cardizem. Continue p.o. Lopressor. Continue Eliquis. CHADVASC score of 2 as she does have hypertension. Echo done and pending. (2) HIV (human immunodeficiency virus infection) Qualifiers: HIV symptom status: asymptomatic Qualified Code(s): Z21 - Asymptomatic human immunodeficiency virus [HIV] infection status Is this a current diagnosis for this admission?: Yes Plan: Continue antiretrovirals. (3) HTN (hypertension) Is this a current diagnosis for this admission?: Yes - Time Time Spent with patient: 25-34 minutes
[2018-12-31] MEDS: ATORVASTATIN CALCIUM 20 MG TABLET PO SCH (21:22)
[2018-12-31] MEDS ORDERED: METOPROLOL TARTRATE 25 MG TABLET PO ONE (23:59)
[2019-01-01] MEDS: DILTIAZEM HCL/D5W 125 MG/125 ML RTUINJ IV PRN ×2 (00:42→11:51)
[2019-01-01] MEDS: DILTIAZEM HCL 30 MG TABLET PO SCH ×3 (05:02→21:05)
[2019-01-01] MEDS: FUROSEMIDE INJ/PF 20 MG/2 ML SDV IV SCH ×2 (05:02→18:09)
[2019-01-01 07:04] LABS: ABSOLUTE LYMPHOCYTES (AUTO) 1.8 10^3/uL (0.5-4.7); ABSOLUTE MONOCYTES (AUTO) 0.5 10^3/uL (0.1-1.4); ABSOLUTE NEUT (AUTO) 1.1 10^3/uL (1.7-8.2); BASOPHILS % (AUTO) 1.1 % (0-2); EOSINOPHILS % (AUTO) 0.2 % (0-6); HEMATOCRIT 37.7 % (36.0-47.0); HEMOGLOBIN 12.5 g/dL (12.0-15.5); LYMPHOCYTES % (AUTO) 52.8 % (13-45); MEAN CORPUSCULAR HEMOGLOBIN 30.9 pg (27.0-33.4); MEAN CORPUSCULAR HGB CONC 33.2 g/dL (32.0-36.0); MEAN CORPUSCULAR VOLUME 93 fl (80-97); MONOCYTES % (AUTO) 14.8 % (3-13); PLATELET COUNT 269 10^3/uL (150-450); RED BLOOD COUNT 4.05 10^6/uL (3.72-5.28); RED CELL DISTRIBUTION WIDTH 13.9 % (11.5-14.0); SEGMENTED NEUTROPHILS % (AUTO) 31.1 % (42-78); TOTAL CELLS COUNTED % (AUTO) 100 %; WHITE BLOOD COUNT 3.4 10^3/uL (4.0-10.5)
[2019-01-01] MEDS: IPRATROPIUM/ALBUTEROL 0.5-2.5 MG/3 ML AMPUL NEB SCH ×3 (07:41→20:32)
[2019-01-01] MEDS: ASPIRIN 81 MG TABLET, CHEWABLE PO SCH (10:52)
[2019-01-01] MEDS: FAMOTIDINE 20 MG TABLET PO SCH ×2 (10:52→21:06)
[2019-01-01] MEDS: DOCUSATE SODIUM 100 MG/10 ML UDC PO SCH (10:52)
[2019-01-01] MEDS: APIXABAN 5 MG TABLET PO SCH ×2 (10:52→18:08)
[2019-01-01] MEDS: METOPROLOL TARTRATE 50 MG TABLET PO SCH ×2 (10:54→21:05)
--- NOTE | 2019-01-01 15:59 | PDOC PROGRESS REPORT ---
Subjective Progress Note for:: 01/01/19 Subjective:: This is a 58-year-old female who was recently discharged for A. fib with RVR. She was readmitted after presenting with A. fib and RVR again. Patient was started on Cardizem drip. She is also recently discharged on Eliquis. 12/31: Patient is currently on Cardizem drip. She is currently in A. fib has been mostly running in the 80s to 90s this morning with the heart rate going to 140s when she moves. She denies chest pain or shortness of breath. We will restart her on p.o. Cardizem and hopefully wean her off the Cardizem drip today. 01/01: Patient went into A. fib RVR with a heart rate in the 140s early this morning. She did respond well to a dose of Lopressor. Cardizem drip is down to 10 from 15 u/hr. She denies chest pain or shortness of breath. Will add oral Lopressor. Will continue weaning off the Cardizem drip. Reason For Visit: AFIB RVR Physical Exam Vital Signs: Temp Pulse Resp BP Pulse Ox 97.6 F 85 17 121/75 97 01/01/19 07:47 01/01/19 13:53 01/01/19 13:53 01/01/19 07:47 01/01/19 13:53 Intake & Output 12/31/18 01/01/19 01/02/19 06:59 06:59 06:59 Intake Total 103 1532 423 Balance 103 1532 423 Weight 256 lb 9.889 oz 257 lb 0.944 oz General appearance: PRESENT: no acute distress, well-developed, well-nourished Head exam: PRESENT: atraumatic, normocephalic Eye exam: PRESENT: conjunctiva pink, EOMI, PERRLA. ABSENT: scleral icterus Ear exam: PRESENT: normal external ear exam Mouth exam: PRESENT: moist, tongue midline Neck exam: ABSENT: carotid bruit, JVD, lymphadenopathy, thyromegaly Respiratory exam: PRESENT: clear to auscultation andres. ABSENT: rales, rhonchi, wheezes Cardiovascular exam: PRESENT: irregular rhythm, tachycardia. ABSENT: diastolic murmur, rubs, systolic murmur Pulses: PRESENT: normal dorsalis pedis pul GI/Abdominal exam: PRESENT: normal bowel sounds, soft. ABSENT: distended, guarding, mass, organolmegaly, rebound, tenderness Rectal exam: PRESENT: deferred Extremities exam: PRESENT: full ROM. ABSENT: calf tenderness, clubbing, pedal edema Neurological exam: PRESENT: alert, awake, oriented to person, oriented to place, oriented to time, oriented to situation, CN II-XII grossly intact. ABSENT: motor sensory deficit Results Laboratory Results: 01/01/19 06:07 12/31/18 06:07 01/01/19 01/01/19 06:07 06:07 WBC 3.4 L RBC 4.05 Hgb 12.5 Hct 37.7 MCV 93 MCH 30.9 MCHC 33.2 RDW 13.9 Plt Count 269 Seg Neutrophils % 31.1 L Magnesium 1.6 12/30/18 12/30/18 12/30/18 11:50 11:50 11:50 Creatine Kinase 178 H CK-MB (CK-2) 1.38 Troponin I 0.024 NT-Pro-B Natriuret Pep 4480 H 12/30/18 12/30/18 12/31/18 15:45 19:23 01:15 Creatine Kinase CK-MB (CK-2) Troponin I 0.027 0.025 0.027 NT-Pro-B Natriuret Pep Impressions: Chest/Abdomen CTA 12/30/18 13:23 IMPRESSION: There is no evidence of pulmonary embolus. There is no aortic aneurysm. There is cardiomegaly with no eddie pulmonary edema. Assessment and Plan - Diagnosis (1) Atrial fibrillation with rapid ventricular response Is this a current diagnosis for this admission?: Yes Plan: Currently on Cardizem drip. We will restart her on p.o. Cardizem. Continue Eliquis. CHADVASC score of 2 as she does have hypertension. Echo done and pending. 01/01: Will add Lopressor 50 mg every 12 on top of p.o. Cardizem. Continue to wean down on Cardizem drip. (2) HIV (human immunodeficiency virus infection) Qualifiers: HIV symptom status: asymptomatic Qualified Code(s): Z21 - Asymptomatic human immunodeficiency virus [HIV] infection status Is this a current diagnosis for this admission?: Yes Plan: Continue antiretrovirals. (3) HTN (hypertension) Is this a current diagnosis for this admission?: Yes - Time Time Spent with patient: 25-34 minutes
[2019-01-01 16:25] LABS: ANION GAP 12 (5-19); BLOOD UREA NITROGEN 19 mg/dL (7-20); CALCIUM 9.1 mg/dL (8.4-10.2); CARBON DIOXIDE 27 mmol/L (22-30); CHLORIDE 106 mmol/L (98-107); GLUCOSE 99 mg/dL (75-110); POTASSIUM 3.9 mmol/L (3.6-5.0)
--- NOTE | 2019-01-01 19:29 | XCELERA REPORT ---
[address] [address] Transthoracic Echocardiogram Report Name: MYA ROCK Age: 58 yrs Gender: Female : 1960 Patient Status: Inpatient Patient Location: [address] [place] [address] Study Date: 12/30/2018 07:40 PM Height: 67 in Weight: 261 lb BSA: 2.3 m2 Procedure: A two-dimensional transthoracic echocardiogram with color flow Doppler was performed. The study was technically difficult with many images being suboptimal in quality. Reason For Study: acute chf History: CHF. Ordering Physician: VIDYA CHAKRABORTY Performed By: Jessica Núñez Interpretation Summary The left ventricle is borderline dilated. There is normal left ventricular wall thickness. LV EF is 45% to 50% Left ventricular systolic function is mild to moderately reduced. There is mild to moderate global hypokinesis of the left ventricle. There is no thrombus. Cannot assess for ASD,VSd, o PFO. The right ventricle is not well visualized secondary to technical limitations The right atrium is normal. The left atrium is mildly dilated. There is no evidence of mitral valve prolapse. There is no vegetation seen on the mitral valve. There is no mitral valve stenosis. There is a trace amount of mitral regurgitation There is no aortic valvular vegetation. There is no aortic valve stenosis No aortic regurgitation is present. There is no tricuspid stenosis. There is a trace amount of tricuspid regurgitation No significan pulmoary hypertension.RVSPis 26 to 31 mm of Hg , with RA mean of 5 to 10. There is no pulmonic valvular stenosis. There is no pulmonic valvular regurgitation. The aortic root is normal size. The inferior vena cava appeared normal and decreased > 50% with respiration (RAP 5-10 mmHg) There is no pericardial effusion. MMode/2D Measurements & Calculations RVDd: 2.4 cm LVIDd: 5.6 cm FS: 25.8 % Ao root diam: 2.8 cm IVSd: 1.0 cm LVIDs: 4.2 cm EDV(Teich): Ao root area: LVPWd: 1.1 cm 156.0 ml 6.2 cm2 ESV(Teich): 77.7 mlLA dimension: 3.7 cm EF(Teich): 50.2 % LVLd ap4: 6.5 cm SV(MOD-sp4): EDV(MOD-sp4): 32.0 ml 62.0 ml LVLs ap4: 5.9 cm ESV(MOD-sp4): 30.0 ml EF(MOD-sp4): 51.6 % Doppler Measurements & Calculations MV E max emiliano: MV P1/2t max emiliano: Ao V2 max: LV V1 max P.2 cm/sec 93.7 cm/sec 124.9 cm/sec 3.9 mmHg MV P1/2t: 55.5 msec Ao max P.2 mmHg LV V1 max: MVA(P1/2t): 4.0 cm2 99.3 cm/sec MV dec slope: 494.6 cm/sec2 MV dec time: 0.20 sec PA V2 max: TR max emiliano: MV P1/2t-pr_phl: 95.0 cm/sec 230.8 cm/sec 55.5 msec PA max PG: TR max P.3 mmHg 3.6 mmHg Left Ventricle The left ventricle is borderline dilated. There is normal left ventricular wall thickness. LV EF is 45% to 50%. Left ventricular systolic function is mild to moderately reduced. LV diastolic function could not be adequately assessed due to atrial fibrilation. There is mild to moderate global hypokinesis of the left ventricle. There is no thrombus. Cannot assess for ASD,VSd, o PFO. Right Ventricle The right ventricle is not well visualized secondary to technical limitations. Atria The right atrium is normal. Right atrium not well visualized secondary to technical limitations. The left atrium is mildly dilated. Mitral Valve There is no evidence of mitral valve prolapse. There is no vegetation seen on the mitral valve. There is no mitral valve stenosis. There is a trace amount of mitral regurgitation. Aortic Valve There is no aortic valvular vegetation. There is no aortic valve stenosis. No aortic regurgitation is present. Tricuspid Valve There is no tricuspid stenosis. There is a trace amount of tricuspid regurgitation. No significan pulmoary hypertension.RVSPis 26 to 31 mm of Hg , with RA mean of 5 to 10. Pulmonic Valve There is no pulmonic valvular stenosis. There is no pulmonic valvular regurgitation. Great Vessels The aortic root is normal size. The inferior vena cava appeared normal and decreased > 50% with respiration (RAP 5-10 mmHg). Effusions There is no pericardial effusion. : VIDYA CHAKRABORTY Lakshmi
[2019-01-01] MEDS: ATORVASTATIN CALCIUM 20 MG TABLET PO SCH (21:05)
[2019-01-02] MEDS: DILTIAZEM HCL 30 MG TABLET PO SCH ×3 (05:22→22:03)
[2019-01-02] MEDS: FUROSEMIDE INJ/PF 20 MG/2 ML SDV IV SCH ×2 (05:23→17:51)
[2019-01-02] MEDS: DILTIAZEM HCL/D5W 125 MG/125 ML RTUINJ IV PRN (05:23)
[2019-01-02 06:30] LABS: ABSOLUTE LYMPHOCYTES (AUTO) 1.9 10^3/uL (0.5-4.7); ABSOLUTE MONOCYTES (AUTO) 0.6 10^3/uL (0.1-1.4); ABSOLUTE NEUT (AUTO) 1.5 10^3/uL (1.7-8.2); BASOPHILS % (AUTO) 0.7 % (0-2); EOSINOPHILS % (AUTO) 0.1 % (0-6); HEMATOCRIT 37.2 % (36.0-47.0); HEMOGLOBIN 12.1 g/dL (12.0-15.5); LYMPHOCYTES % (AUTO) 48.2 % (13-45); MEAN CORPUSCULAR HEMOGLOBIN 30.5 pg (27.0-33.4); MEAN CORPUSCULAR HGB CONC 32.7 g/dL (32.0-36.0); MEAN CORPUSCULAR VOLUME 93 fl (80-97); MONOCYTES % (AUTO) 14.5 % (3-13); PLATELET COUNT 279 10^3/uL (150-450); RED BLOOD COUNT 3.98 10^6/uL (3.72-5.28); RED CELL DISTRIBUTION WIDTH 13.8 % (11.5-14.0); SEGMENTED NEUTROPHILS % (AUTO) 36.5 % (42-78); TOTAL CELLS COUNTED % (AUTO) 100 %
[2019-01-02 06:46] LABS: ANION GAP 11 (5-19); BLOOD UREA NITROGEN 17 mg/dL (7-20); CALCIUM 9.1 mg/dL (8.4-10.2); CARBON DIOXIDE 25 mmol/L (22-30); CHLORIDE 104 mmol/L (98-107); GLUCOSE 103 mg/dL (75-110); POTASSIUM 3.9 mmol/L (3.6-5.0)
[2019-01-02] MEDS ORDERED: IPRATROPIUM/ALBUTEROL 0.5-2.5 MG/3 ML AMPUL NEB PRN (08:36)
[2019-01-02] MEDS: IPRATROPIUM/ALBUTEROL 0.5-2.5 MG/3 ML AMPUL NEB SCH (08:36)
[2019-01-02] MEDS ORDERED: DIGOXIN 0.125 MG TABLET PO ONE (08:45)
[2019-01-02] MEDS: ASPIRIN 81 MG TABLET, CHEWABLE PO SCH (10:09)
[2019-01-02] MEDS: METOPROLOL TARTRATE 50 MG TABLET PO SCH ×2 (10:09→22:04)
[2019-01-02] MEDS: DOCUSATE SODIUM 100 MG/10 ML UDC PO SCH (10:09)
[2019-01-02] MEDS: APIXABAN 5 MG TABLET PO SCH ×2 (10:09→17:51)
[2019-01-02] MEDS: FAMOTIDINE 20 MG TABLET PO SCH ×2 (10:09→22:03)
--- NOTE | 2019-01-02 13:56 | PDOC PROGRESS REPORT ---
Subjective Progress Note for:: 01/02/19 Subjective:: This is a 58-year-old female who was recently discharged for A. fib with RVR. She was readmitted after presenting with A. fib and RVR again. Patient was started on Cardizem drip. She is also recently discharged on Eliquis. 12/31: Patient is currently on Cardizem drip. She is currently in A. fib has been mostly running in the 80s to 90s this morning with the heart rate going to 140s when she moves. She denies chest pain or shortness of breath. We will restart her on p.o. Cardizem and hopefully wean her off the Cardizem drip today. 01/01: Patient went into A. fib RVR with a heart rate in the 140s early this morning. She did respond well to a dose of Lopressor. Cardizem drip is down to 10 from 15 u/hr. She denies chest pain or shortness of breath. Will add oral Lopressor. Will continue weaning off the Cardizem drip. 01/02: Patient had episode of A. fib with RVR up to the 140s to 160s while on Cardizem drip earlier this morning. Upon encounter, she denies any chest pain or shortness of breath. We will give her a dose of digoxin. Will increase PO Lopressor. Reason For Visit: AFIB WITH RVR Physical Exam Vital Signs: Temp Pulse Resp BP Pulse Ox 97.6 F 80 16 95/64 L 93 01/01/19 07:47 01/02/19 13:23 01/02/19 10:01 01/02/19 13:23 01/02/19 10:01 Intake & Output 01/01/19 01/02/19 01/03/19 06:59 06:59 06:59 Intake Total 1532 883 Balance 1532 883 Weight 257 lb 0.944 oz 256 lb 3.2 oz General appearance: PRESENT: no acute distress, well-developed, well-nourished Head exam: PRESENT: atraumatic, normocephalic Eye exam: PRESENT: conjunctiva pink, EOMI, PERRLA. ABSENT: scleral icterus Ear exam: PRESENT: normal external ear exam Mouth exam: PRESENT: moist, tongue midline Neck exam: ABSENT: carotid bruit, JVD, lymphadenopathy, thyromegaly Respiratory exam: PRESENT: clear to auscultation andres. ABSENT: rales, rhonchi, wheezes Cardiovascular exam: PRESENT: irregular rhythm. ABSENT: systolic murmur Pulses: PRESENT: normal dorsalis pedis pul GI/Abdominal exam: PRESENT: normal bowel sounds, soft. ABSENT: distended, guarding, mass, organolmegaly, rebound, tenderness Rectal exam: PRESENT: deferred Extremities exam: PRESENT: full ROM. ABSENT: calf tenderness, clubbing, pedal edema Neurological exam: PRESENT: alert, awake, oriented to person, oriented to place, oriented to time, oriented to situation, CN II-XII grossly intact. ABSENT: motor sensory deficit Results Laboratory Results: 01/02/19 05:38 01/02/19 05:38 01/01/19 01/02/19 01/02/19 15:49 05:38 05:38 WBC 4.0 RBC 3.98 Hgb 12.1 Hct 37.2 MCV 93 MCH 30.5 MCHC 32.7 RDW 13.8 Plt Count 279 Seg Neutrophils % 36.5 L Sodium 144.8 140.1 Potassium 3.9 3.9 Chloride 106 104 Carbon Dioxide 27 25 Anion Gap 12 11 BUN 19 17 Creatinine 0.97 0.80 Est GFR ( Amer) > 60 > 60 Glucose 99 103 Calcium 9.1 9.1 Magnesium 1.7 12/30/18 12/30/18 12/30/18 11:50 11:50 11:50 Creatine Kinase 178 H CK-MB (CK-2) 1.38 Troponin I 0.024 NT-Pro-B Natriuret Pep 4480 H 12/30/18 12/30/18 12/31/18 15:45 19:23 01:15 Creatine Kinase CK-MB (CK-2) Troponin I 0.027 0.025 0.027 NT-Pro-B Natriuret Pep Impressions: Chest/Abdomen CTA 12/30/18 13:23 IMPRESSION: There is no evidence of pulmonary embolus. There is no aortic aneurysm. There is cardiomegaly with no eddie pulmonary edema. Assessment and Plan - Diagnosis (1) Atrial fibrillation with rapid ventricular response Is this a current diagnosis for this admission?: Yes Plan: Currently on Cardizem drip. We will restart her on p.o. Cardizem. Continue Eliquis. CHADVASC score of 2 as she does have hypertension. Echo done and pending. 01/01: Will add Lopressor 50 mg every 12 on top of p.o. Cardizem. Continue to wean down on Cardizem drip. 01/02: Patient had episode of A. fib with RVR up to the 140s to 160s while on Cardizem drip earlier this morning. Will give her a dose of digoxin. Will increase PO Lopressor to 100 mg q12. Continue PO cardizerm and weaning down on cardizem drip. (2) HIV (human immunodeficiency virus infection) Qualifiers: HIV symptom status: asymptomatic Qualified Code(s): Z21 - Asymptomatic human immunodeficiency virus [HIV] infection status Is this a current diagnosis for this admission?: Yes Plan: Continue antiretrovirals. (3) HTN (hypertension) Is this a current diagnosis for this admission?: Yes Plan: On Cardizem and lopressor. - Time Time Spent with patient: 25-34 minutes
[2019-01-02] MEDS: ATORVASTATIN CALCIUM 20 MG TABLET PO SCH (22:03)
[2019-01-03] MEDS: FUROSEMIDE INJ/PF 20 MG/2 ML SDV IV SCH (05:31)
[2019-01-03] MEDS: DILTIAZEM HCL 30 MG TABLET PO SCH ×3 (05:32→22:10)
[2019-01-03] MEDS ORDERED: DIGOXIN INJ 0.5 MG/2 ML AMPULE ONE ×3 (10:18→17:16)
[2019-01-03] MEDS: APIXABAN 5 MG TABLET PO SCH ×2 (10:21→17:32)
[2019-01-03] MEDS: FAMOTIDINE 20 MG TABLET PO SCH ×2 (10:21→22:10)
[2019-01-03] MEDS: DOCUSATE SODIUM 100 MG/10 ML UDC PO SCH (10:21)
[2019-01-03] MEDS: ASPIRIN 81 MG TABLET, CHEWABLE PO SCH (10:21)
[2019-01-03] MEDS: METOPROLOL TARTRATE 50 MG TABLET PO SCH ×2 (10:23→22:10)
[2019-01-03] MEDS: DIGOXIN 0.125 MG TABLET PO SCH (10:23)
[2019-01-03 10:58] LABS: FREE T3 3.29 pg/mL (2.77-5.27); FREE T4 (FREE THYROXINE) 1.16 ng/dL (0.78-2.19)
[2019-01-03 11:12] LABS: THYROID STIMULATING HORMONE 1.41 uIU/mL (0.47-4.68)
--- NOTE | 2019-01-03 14:23 | PDOC PROGRESS REPORT ---
Subjective Progress Note for:: 01/03/19 Subjective:: This is a 58-year-old female who was recently discharged for A. fib with RVR. She was readmitted after presenting with A. fib and RVR again. Patient was started on Cardizem drip. She is also recently discharged on Eliquis. 12/31: Patient is currently on Cardizem drip. She is currently in A. fib has been mostly running in the 80s to 90s this morning with the heart rate going to 140s when she moves. She denies chest pain or shortness of breath. We will restart her on p.o. Cardizem and hopefully wean her off the Cardizem drip today. 01/01: Patient went into A. fib RVR with a heart rate in the 140s early this morning. She did respond well to a dose of Lopressor. Cardizem drip is down to 10 from 15 u/hr. She denies chest pain or shortness of breath. Will add oral Lopressor. Will continue weaning off the Cardizem drip. 01/02: Patient had episode of A. fib with RVR up to the 140s to 160s while on Cardizem drip earlier this morning. Upon encounter, she denies any chest pain or shortness of breath. We will give her a dose of digoxin. Will increase PO Lopressor. 01/03: Patient remains on Cardizem drip at 2.5 mg/h. She went to RVR in the 14 0s early this morning when she went to the bathroom. Upon encounter, she denies chest pain or shortness of breath. Reason For Visit: AFIB WITH RVR Physical Exam Vital Signs: Temp Pulse Resp BP Pulse Ox 98.4 F 98 15 96/62 L 100 01/03/19 08:08 01/03/19 08:39 01/03/19 08:08 01/03/19 08:39 01/03/19 08:08 Intake & Output 01/02/19 01/03/19 01/04/19 06:59 06:59 06:59 Intake Total 883 798 Balance 883 798 Weight 256 lb 3.2 oz 255 lb 11.779 oz General appearance: PRESENT: no acute distress, well-developed, well-nourished Head exam: PRESENT: atraumatic, normocephalic Eye exam: PRESENT: conjunctiva pink, EOMI, PERRLA. ABSENT: scleral icterus Ear exam: PRESENT: normal external ear exam Mouth exam: PRESENT: moist, tongue midline Neck exam: ABSENT: carotid bruit, JVD, lymphadenopathy, thyromegaly Respiratory exam: PRESENT: clear to auscultation andres. ABSENT: rales, rhonchi, wheezes Cardiovascular exam: PRESENT: irregular rhythm. ABSENT: diastolic murmur, rubs, systolic murmur Pulses: PRESENT: normal dorsalis pedis pul GI/Abdominal exam: PRESENT: normal bowel sounds, soft. ABSENT: distended, guarding, mass, organolmegaly, rebound, tenderness Rectal exam: PRESENT: deferred Neurological exam: PRESENT: alert, awake, oriented to person, oriented to place, oriented to time, oriented to situation, CN II-XII grossly intact. ABSENT: motor sensory deficit Results Laboratory Results: 01/02/19 05:38 01/02/19 05:38 12/30/18 12/30/18 12/30/18 11:50 11:50 11:50 Creatine Kinase 178 H CK-MB (CK-2) 1.38 Troponin I 0.024 NT-Pro-B Natriuret Pep 4480 H 12/30/18 12/30/18 12/31/18 15:45 19:23 01:15 Creatine Kinase CK-MB (CK-2) Troponin I 0.027 0.025 0.027 NT-Pro-B Natriuret Pep Impressions: Chest/Abdomen CTA 12/30/18 13:23 IMPRESSION: There is no evidence of pulmonary embolus. There is no aortic aneurysm. There is cardiomegaly with no dedie pulmonary edema. Assessment and Plan - Diagnosis (1) Atrial fibrillation with rapid ventricular response Is this a current diagnosis for this admission?: Yes Plan: Currently on Cardizem drip. We will restart her on p.o. Cardizem. Continue Eliquis. CHADVASC score of 2 as she does have hypertension. Echo done and pending. 01/01: Will add Lopressor 50 mg every 12 on top of p.o. Cardizem. Continue to wean down on Cardizem drip. 01/02: Patient had episode of A. fib with RVR up to the 140s to 160s while on Cardizem drip earlier this morning. Will give her a dose of digoxin. Will increase PO Lopressor to 100 mg q12. Continue PO cardizerm and weaning down on cardizem drip. 01/03: On Cardizem drip at 2.5 mg/h. Continue Lopressor 100 mg every 12, PO digoxin and PO Cardizem. Will consult cardiology for further recommendations. (2) HIV (human immunodeficiency virus infection) Qualifiers: HIV symptom status: asymptomatic Qualified Code(s): Z21 - Asymptomatic human immunodeficiency virus [HIV] infection status Is this a current diagnosis for this admission?: Yes Plan: Continue antiretrovirals. (3) HTN (hypertension) Is this a current diagnosis for this admission?: Yes Plan: On Cardizem and lopressor. - Time Time Spent with patient: 25-34 minutes
[2019-01-03] MEDS ORDERED: DIGOXIN INJ 0.5 MG/2 ML AMPULE IV ONE (15:30)
[2019-01-03] MEDS: DILTIAZEM HCL/D5W 125 MG/125 ML RTUINJ IV PRN (19:01)
--- NOTE | 2019-01-03 19:19 | PDOC CONSULTATION ---
Consultation-Blank Consultation: CARDIOLOGY CONSULTATION by Dr. Swapna Howell on 01/03/2019. Patient seen at 4 PM on 01/03/2019. REASON FOR CONSULTATION: Atrial fibrillation with uncontrolled ventricular response in spite of multiple medications. CONSULT REQUESTING PHYSICIAN: Dr. Alpesh Zhang, [facility]. HISTORY PRESENT ILLNESS: Patient is a 58-year-old Afro-[place] female with history of hypertension, HIV positivity, but with no clinical manifestation of HIV disease, admitted with recurrence of atrial fibrillation. The patient denies any chest pain discomfort. There is some dizziness episodes occasionally but no syncope. She denies chest pain or discomfort. There is no shortness of breath. There is no PND orthopnea. There is no cough or sputum production. The patient in spite of patient being on dig and Cardizem intravenously and metoprolol at 100 mg p.o. twice daily the patient continues to have spurts of heart rate to the 160s. Her blood pressure is also soft with a systolic of 98. The patient has been restarted on Eliquis. There is no bleeding on Eliquis. There is no TIA CVA symptoms. The patient denies any cough or sputum production or pleuritic chest pain. Past Medical History Cardiac Medical History: Reports: Atrial Fibrillation. She states that the pain she was diagnosed with HIV she had a cardiac catheterization which showed no coronary artery disease. There is no history of congestive heart failure. Pulmonary Medical History: Reports: Asthma. She has no diagnosis of sleep apnea. Endocrine Medical History: Reports: None GI Medical History: Reports: Gastroesophageal Reflux Disease Psychiatric Medical History: Denies: Depression Hematology: Reports: Anemia Infectious Medical History: Reports: HIV. Clinically no manifestation of HIV disease. Past Surgical History Past Surgical History: Reports: Cardiac Catheterization - Apr 2015, u nremarkable., Section, Hysterectomy, Orthopedic Surgery - L ankle, Tubal Ligation Social History Smoking Status: Former Smoker Number of Years Smokin Last Time Smoked: 12/10/2008 Frequency of Alcohol Use: None Hx Recreational Drug Use: Yes Drugs: Marijuana Hx Prescription Drug Abuse: No - Advance Directive Resuscitation Status: Full Code. Her sister Ms. Lara Segal is her surrogate healthcare decision maker Family History Family History: Reviewed & Not Pertinent, CAD, Hypertension Medication/Allergy Home Medications: Bictegrav/Emtricit/Tenofov Ala [Biktarvy 50-200-25 mg Tablet] 1 tab PO DAILY 12/27/18 Allergies/Adverse Reactions: ciprofloxacin [From Cipro] Allergy (Mild, Verified 11/22/18 10:09) Hives ciprofloxacin HCl [From Cipro] Allergy (Mild, Verified 11/22/18 10:09)Hives. ACTIVE MEDICATIONS Generic Name Dose Route Start Last Admin Trade Name Freq PRN Reason Stop Dose Admin Acetaminophen 325 mg 12/30/18 15:22 01/03/19 20:13 Tylenol 325 Mg Tablet PO 01/29/19 15:21 325 mg Q4HP PRN Administration FEVER >101 Al Hydrox/Mg Hydrox/Simethicone 15 ml 12/30/18 15:22 Maalox Plus Susp 30 Udcup PO 01/29/19 15:21 Q6HP PRN HEARTBURN Apixaban 5 mg 12/30/18 18:00 01/03/19 17:32 Eliquis 5 Mg Tablet PO 01/29/19 17:59 5 mg BID BERNADINE Administration Aspirin 81 mg 12/31/18 10:00 01/03/19 10:21 Aspirin 81 Mg Chewable Tablet PO 01/30/19 09:59 81 mg DAILY BERNADINE Administration Atorvastatin Calcium 20 mg 12/30/18 22:00 01/03/19 22:10 Lipitor 20 Mg Tablet PO 01/29/19 21:59 20 mg QHS BERNADINE Administration Digoxin 0.125 mg 01/03/19 10:00 01/03/19 10:23 Lanoxin 0.125 Mg Tablet PO 02/02/19 09:59 Not Given DAILY BERNADINE Diltiazem HCl 30 mg 12/31/18 11:00 01/03/19 22:10 Cardizem 30 Mg Tablet PO 01/30/19 10:59 Not Given Q8 BERNADINE Docusate Sodium 100 mg 12/31/18 10:00 01/03/19 10:21 Colace Udc 100 Mg/10 Ml Oral Soln PO 01/30/19 09:59 Not Given DAILY BERNADINE Famotidine 20 mg 12/30/18 22:00 01/03/19 22:10 Pepcid 20 Mg Tablet PO 01/29/19 21:59 20 mg Q12 BERNADINE Administration Diltiazem HCl 125 mg in 125 mls @ 0 mls/hr 12/30/18 15:21 01/03/19 19:01 Cardizem Rtu Inj 125 Mg-D5w 125 Ml Premix IV 01/29/19 15:20 15 mls/hr CONTINUOUS PRN 15 mls/hr THIS MED IS NOT "PRN" Administration Protocol Titrate Sodium Chloride 1,000 mls @ 75 mls/hr 01/03/19 18:41 01/03/19 20:07 Nacl 0.9% 1000 Ml Iv Soln IV 02/02/19 18:40 75 mls/hr CONTINUOUS PRN Administration THIS MED IS NOT "PRN" Losartan Potassium 25 mg 01/04/19 10:00 Cozaar 25 Mg Tablet PO 02/03/19 09:59 DAILY BERNADINE Metoprolol Tartrate 100 mg 01/02/19 10:00 01/03/19 22:10 Lopressor 50 Mg Tablet PO 02/01/19 09:59 Not Given Q12 BERNADINE Oxycodone/Acetaminophen 1 tab 12/30/18 15:22 Percocet 5-325 Mg Tablet PO 01/06/19 15:21 Q4HP PRN FOR PAIN SCALE 3-4 Patient Own Medication 1 tab 12/31/18 10:00 Bictegrav/Emtricit/Tenofov Ala [Biktarvy 50-200-25 Mg Tablet] PO 01/30/19 09:[address] [facility] Promethazine HCl 6.25 mg 12/30/18 15:22 Phenergan Inj 25 Mg/1 Ml Vial IV 01/29/19 15:21 Q4HP PRN FOR NAUSEA/VOMITING Temazepam 15 mg 12/30/18 15:22 Restoril 15 Mg Capsule PO 01/06/19 15:21 HSP PRN SLEEP OR INSOMNIA 01/03/19 18:27 Social Service/Discharge Plan Consult [CONS] Routine 01/03/19 18:41 Normal Saline 1000 ml [NaCl 0.9% 1000 ml IV Soln] 1,000 ml IV CONTINUOUS 01/04/19 10:00 Losartan Potassium [Cozaar 25 mg Tablet] 25 mg PO DAILY REVIEW SYSTEMS: Head: Denies headaches or head injury. CONSTITUTIONAL: Do not denies any fever chills or Reiger's. Denies generalized fatigue or weakness. EYES: No history of amblyopia diplopia. No history of amaurosis fugax. EARS: No history of tinnitus. No severe hearing loss. NOSE: No history of nosebleeds. No severe hayfever. MOUTH: No history of altered taste sensation. No ulcers in the mouth. THROAT: No history of odynophagia or dysphagia. No history of recurrent sore throats. SKIN: There is no skin rashes. There is no particular ecchymosis. There is no pruritus. There is no allergic discol oration of the skin. NECK: There is no neck swelling. There is no pain in the neck. LUNGS: History of asthma no recent symptoms of acute exacerbation. No history of COPD. No history of sleep apnea. No history of cough or sputum production. No hemoptysis. No history of pulmonary embolism. CARDIAC: History of recurrence of paroxysmal atrial fibrillation at present patient atrial fibrillation. History of hypertension present. Note that the patient has a Phi vas 2 score of 2 hence is on anticoagulation. There is no history of coronary artery disease. No history of congestive heart failure. History of hypertension present which is well controlled in fact the blood pressure is soft. ENDOCRINE: No history of diabetes mellitus or thyroid disease. No polydipsia polyuria. No history of heat or cold intolerance. RENAL: No history chronic kidney disease. No history of symptoms of urinary tract infection or hematuria or pyuria or dysuria. MUSCULOSKELETAL: Denies arthritis or collagen vascular disease. All plaques infectious: History of HIV positivity, but no clinical manifestation of the disease. VASCULAR: No history of calf or buttock claudication. No history of DVT. RESEARCH AND DEVELOPMENT MANAGER: No history of TIA CVA. No history of headaches migraines or seizures. PSYCHIATRIC: Denies any history of anxiety or depression. GI: No history of fatty food intolerance. No history of GI bleed. History of GERD present. PHYSICAL EXAMINATION: The patient is morbidly obese. And present in no acute distress. She is well-groomed. Selected Entries 01/03/19 01/03/19 01/03/19 08:08 10:00 18:00 Temperature 98.4 F Temperature Oral Source Pulse Rate 100 112 H 127 H Respiratory 15 Rate Blood Pressure 98/73 L 129/99 H Blood Pressure 81 Mean BP Location Left Arm BP Position Sitting O2 Sat by Pulse 100 Oximetry Oxygen Delivery Room Air Method HEAD: Is atraumatic normocephalic. EYES: Pupils are equal round regular reactive to light and accommodation. There is no clinical pallor. There is no scleral icterus. External ocular movements are normal. EARS: Tympanic membranes are intact. External auditory canals are clear. NOSE: Nasal mucous membranes are not inflamed. There is no deviated nasal septum. MOUTH: Mucous membranes of mouth are moist. Tongue is moist. There is no ulcers. There is no bleeding from the gums. THROAT: There is no redness of the oropharynx. There is no exudates in the throat. SKIN: There is no petechia or ecchymosis. There is no skin rashes or skin lesions. NECK: Is supple. There is no JVD. Carotids are equal there is no bruits. There is no lymphadenopathy. There is no goiter. There is no accessory muscles of respiration in use. Trachea central. LUNGS: There is diminished air entry and prolonged expiration. On percussion there is hyperresonance. There is scattered rhonchi present. There is no rales or wheezing. There is no chest wall tenderness on palpation. HEA RT: S1-S2 is heard. S1 is of variable intensity. There is no S3 gallop. There is no S4 gallop. There is systolic murmur left sternal border and the apex, without radiation. There is no murmur of aortic stenosis. Prosthetic aortic valve click heard crisply. There is no aortic regurgitation murmur.. There is no rub. ABDOMEN: Is Nontender. There is no hepatosplenomegaly. Bowel sounds are well heard. EXTREMITIES: Femorals are deep. Femorals are slightly diminished. There is no femoral bruits. There is no pedal edema. There is no DVT or cellulitis. Leg pulses are diminished. There is no cyanosis or clubbing. Capillary refill is normal. There is no calf tenderness. RESEARCH AND DEVELOPMENT MANAGER: The patient is conscious awake alert oriented x3 with no focal deficits. PSYCHIATRIC: The patient judgment and insight are intact her affect is normal. Chest/Abdomen CTA 12/30/18 13:23 IMPRESSION: There is no evidence of pulmonary embolus. There is no aortic aneurysm. There is cardiomegaly with no eddie pulmonary edema. Labs- Entire Visit 12/30/18 12/30/18 12/30/18 11:50 11:50 11:50 WBC 4.1 RBC 3.73 Hgb 11.5 L Hct 35.3 L MCV 95 MCH 30.9 MCHC 32.7 RDW 13.9 Plt Count 281 Lymph % (Auto) 57.7 H [place] % (Auto) 11.7 Eos % (Auto) 0.1 Baso % (Auto) 0.6 Absolute Neuts (auto) 1.2 L Absolute Lymphs (auto) 2.4 Absolute Monos (auto) 0.5 Absolute Eos (auto) 0.0 Absolute Basos (auto) 0.0 Seg Neutrophils % 29.9 L PT INR APTT Sodium 145.7 H Potassium 3.7 Chloride 112 H Carbon Dioxide 25 Anion Gap 9 BUN 20 Creatinine 1.07 Est GFR ( Amer) > 60 Est GFR (MDRD) Non-Af 53 L Glucose 104 Calcium 8.8 Magnesium Total Bilirubin 0.4 Direct Bilirubin 0.1 Neonat Total Bilirubin Not Reportable Neonat Direct Bilirubin Not Reportable Neonat Indirect Bili Not Reportable AST 24 ALT 17 Alkaline Phosphatase 57 Creatine Kinase 178 H CK-MB (CK-2) 1.38 Troponin I 0.024 NT-Pro-B Natriuret Pep Total Protein 7.0 Albumin 3.8 Triglycerides Cholesterol LDL Cholesterol Direct VLDL Cholesterol HDL Cholesterol TSH Free T4 Free T3 pg/mL 12/30/18 12/30/18 12/30/18 11:50 11:50 11:50 WBC RBC Hgb Hct MCV MCH MCHC RDW Plt Count Lymph % (Auto) [place] % (Auto) Eos % (Auto) Baso % (Auto) Absolute Neuts (auto) Absolute Lymphs (auto) Absolute Monos (auto) Absolute Eos (auto) Absolute Basos (auto) Seg Neutrophils % PT 16.1 H INR 1.29 APTT 32.4 Sodium Potassium Chloride Carbon Dioxide Anion Gap BUN Creatinine Est GFR ( Amer) Est GFR (MDRD) Non-Af Glucose Calcium Magnesium 1.8 Total Bilirubin Direct Bilirubin Neonat Total Bilirubin Neonat Direct Bilirubin Neonat Indirect Bili AST ALT Alkaline Phosphatase Creatine Kinase CK-MB (CK-2) Troponin I NT-Pro-B Natriuret Pep 4480 H Total Protein Albumin Triglycerides Cholesterol LDL Cholesterol Direct VLDL Cholesterol HDL Cholesterol TSH Free T4 Free T3 pg/mL 12/30/18 12/30/18 12/31/18 15:45 19:23 01:15 WBC RBC Hgb Hct MCV MCH MCHC RDW Plt Count Lymph % (Auto) [place] % (Auto) Eos % (Auto) Baso % (Auto) Absolute Neuts (auto) Absolute Lymphs (auto) Absolute Monos (auto) Absolute Eos (auto) Absolute Basos (auto) Seg Neutrophils % PT INR APTT Sodium Potassium Chloride Carbon Dioxide Anion Gap BUN Creatinine Est GFR ( Amer) Est GFR (MDRD) Non-Af Glucose Calcium Magnesium Total Bilirubin Direct Bilirubin Neonat Total Bilirubin Neonat Direct Bilirubin Neonat Indirect Bili AST ALT Alkaline Phosphatase Creatine Kinase CK-MB (CK-2) Troponin I 0.027 0.025 0.027 NT-Pro-B Natriuret Pep Total Protein Albumin Triglycerides Cholesterol LDL Cholesterol Direct VLDL Cholesterol HDL Cholesterol TSH Free T4 Free T3 pg/mL 12/31/18 12/31/18 12/31/18 06:07 06:07 06:07 WBC 3.2 L RBC 3.68 L Hgb 11.5 L Hct 34.3 L MCV 93 MCH 31.4 MCHC 33.6 RDW 13.8 Plt Count 266 Lymph % (Auto) 48.2 H [place] % (Auto) 12.3 Eos % (Auto) 0.2 Baso % (Auto) 0.6 Absolute Neuts (auto) 1.2 L Absolute Lymphs (auto) 1.5 Absolute Monos (auto) 0.4 Absolute Eos (auto) 0.0 Absolute Basos (auto) 0.0 Seg Neutrophils % 38.7 L PT INR APTT Sodium 142.2 Potassium 3.6 Chloride 107 Carbon Dioxide 26 Anion Gap 9 BUN 14 Creatinine 0.79 Est GFR ( Amer) > 60 Est GFR (MDRD) Non-Af > 60 Glucose 107 Calcium 9.0 Magnesium 1.7 Total Bilirubin Direct Bilirubin Neonat Total Bilirubin Neonat Direct Bilirubin Neonat Indirect Bili AST ALT Alkaline Phosphatase Creatine Kinase CK-MB (CK-2) Troponin I NT-Pro-B Natriuret Pep Total Protein Albumin Triglycerides 121 Cholesterol 198.27 LDL Cholesterol Direct 126 H VLDL Cholesterol 24.0 HDL Cholesterol 39 L TSH Free T4 Free T3 pg/mL 01/01/19 01/01/19 01/01/19 06:07 06:07 15:49 WBC 3.4 L RBC 4.05 Hgb 12.5 Hct 37.7 MCV 93 MCH 30.9 MCHC 33.2 RDW 13.9 Plt Count 269 Lymph % (Auto) 52.8 H [place] % (Auto) 14.8 H Eos % (Auto) 0.2 Baso % (Auto) 1.1 Absolute Neuts (auto) 1.1 L Absolute Lymphs (auto) 1.8 Absolute Monos (auto) 0.5 Absolute Eos (auto) 0.0 Absolute Basos (auto) 0.0 Seg Neutrophils % 31.1 L PT INR APTT Sodium 144.8 Potassium 3.9 Chloride 106 Carbon Dioxide 27 Anion Gap 12 BUN 19 Creatinine 0.97 Est GFR ( Amer) > 60 Est GFR (MDRD) Non-Af 59 L Glucose 99 Calcium 9.1 Magnesium 1.6 Total Bilirubin Direct Bilirubin Neonat Total Bilirubin Neonat Direct Bilirubin Neonat Indirect Bili AST ALT Alkaline Phosphatase Creatine Kinase CK-MB (CK-2) Troponin I NT-Pro-B Natriuret Pep Total Protein Albumin Triglycerides Cholesterol LDL Cholesterol Direct VLDL Cholesterol HDL Cholesterol TSH Free T4 Free T3 pg/mL 01/02/19 01/02/19 01/02/19 05:38 05:38 05:38 WBC 4.0 RBC 3.98 Hgb 12.1 Hct 37.2 MCV 93 MCH 30.5 MCHC 32.7 RDW 13.8 Plt Count 279 Lymph % (Auto) 48.2 H [place] % (Auto) 14.5 H Eos % (Auto) 0.1 Baso % (Auto) 0.7 Absolute Neuts (auto) 1.5 L Absolute Lymphs (auto) 1.9 Absolute Monos (auto) 0.6 Absolute Eos (auto) 0.0 Absolute Basos (auto) 0.0 Seg Neutrophils % 36.5 L PT INR APTT Sodium 140.1 Potassium 3.9 Chloride 104 Carbon Dioxide 25 Anion Gap 11 BUN 17 Creatinine 0.80 Est GFR ( Amer) > 60 Est GFR (MDRD) Non-Af > 60 Glucose 103 Calcium 9.1 Magnesium 1.7 Total Bilirubin Direct Bilirubin Neonat Total Bilirubin Neonat Direct Bilirubin Neonat Indirect Bili AST ALT Alkaline Phosphatase Creatine Kinase CK-MB (CK-2) Troponin I NT-Pro-B Natriuret Pep Total Protein Albumin Triglycerides Cholesterol LDL Cholesterol Direct VLDL Cholesterol HDL Cholesterol TSH 1.41 Free T4 1.16 Free T3 pg/mL 3.29 EKG: Atrial fibrillation. Right bundle branch block pattern and left anterior fascicular block. LVH by voltage. ECHOCARDIOGRAM: The left ventricle is mildly dilated. The LV ejection fraction is mild to moderately reduced at 45% to 50%. There is trace MR and trace TR. There is no aortic stenosis or aortic regurgitation. Right ventricle systolic pressure is 26 to 31 mmHg. Echo findings discussed with the patient. IMPRESSION/RECOMMENDATION: 1. Atrial fibrillation with rapid ventricular response. We will hold the patient's Lopressor continue the patient is on Cardizem drip at 2.5 mg/h. We will give the patient extra dose of digoxin. Check a dig level in the morning. Continue Eliquis. Also the patient appears to be volume depleted and hence we will give the patient some IV fluids. Thyroid function tests are normal. 2. Hypertension: Blood pressure on the low worst side at present. 3. Hyperlipidemia: Patient has high LDL and low HDL levels. Continue statin an d diet modification. 4. Morbid obesity. 5. HIV positivity. Occasions reviewed medications adjusted. Management plan and medication regimen discussed with attending physician on the case. Medical decision making is of high complexity. 60 minutes spent on this patient more than 50% of time spent in direct patient care. Will follow
[2019-01-03] MEDS: NORMAL SALINE 1000 ML 1,000 ML IV PRN (20:07)
[2019-01-03] MEDS: ATORVASTATIN CALCIUM 20 MG TABLET PO SCH (22:10)
[2019-01-04] MEDS: DILTIAZEM HCL/D5W 125 MG/125 ML RTUINJ IV PRN ×2 (03:41→12:16)
[2019-01-04] MEDS: DILTIAZEM HCL 30 MG TABLET PO SCH (06:05)
[2019-01-04 07:28] LABS: APPEARANCE,URINE CLEAR; BILIRUBIN,URINE NEGATIVE (NEGATIVE); COLOR,URINE YELLOW; GLUCOSE, URINE NEGATIVE (NEGATIVE); KETONES,URINE NEGATIVE (NEGATIVE); LEUKOCYTE ESTERASE,URINE NEGATIVE (NEGATIVE); NITRITE,URINE NEGATIVE (NEGATIVE); PROTEIN,URINE NEGATIVE (NEGATIVE); URINE SPECIFIC GRAVITY 1.016; UROBILINOGEN,URINE NEGATIVE mg/dL (<2.0)
[2019-01-04] MEDS: FAMOTIDINE 20 MG TABLET PO SCH ×2 (10:46→21:53)
[2019-01-04] MEDS: METOPROLOL TARTRATE 50 MG TABLET PO SCH ×2 (10:46→21:52)
[2019-01-04] MEDS: APIXABAN 5 MG TABLET PO SCH ×2 (10:46→17:41)
[2019-01-04] MEDS: NORMAL SALINE 1000 ML 1,000 ML IV PRN (10:47)
[2019-01-04] MEDS: LOSARTAN POTASSIUM 25 MG TABLET PO SCH (10:47)
[2019-01-04] MEDS: ASPIRIN 81 MG TABLET, CHEWABLE PO SCH (10:47)
[2019-01-04] MEDS: DOCUSATE SODIUM 100 MG/10 ML UDC PO SCH (10:48)
[2019-01-04] MEDS: DIGOXIN 0.125 MG TABLET PO SCH (13:03)
--- NOTE | 2019-01-04 13:09 | EKG REPORT ---
SEVERITY:- ABNORMAL ECG - ATRIAL FIBRILLATION, V-RATE 63-109 MULTIPLE VENTRICULAR PREMATURE COMPLEXES RIGHT BUNDLE BRANCH BLOCK LVH WITH IVCD AND SECONDARY REPOL ABNRM : Confirmed by: Swapna Mcrae MD 04-Jan-2019 13:09:07
[2019-01-04] MEDS ORDERED: DIGOXIN 0.25 MG TABLET PO SCH (13:30)
--- NOTE | 2019-01-04 13:53 | PDOC PROGRESS REPORT ---
Subjective Progress Note for:: 01/04/19 Subjective:: This is a 58-year-old female who was recently discharged for A. fib with RVR. She was readmitted after presenting with A. fib and RVR again. Patient was started on Cardizem drip. She is also recently discharged on Eliquis. 12/31: Patient is currently on Cardizem drip. She is currently in A. fib has been mostly running in the 80s to 90s this morning with the heart rate going to 140s when she moves. She denies chest pain or shortness of breath. We will restart her on p.o. Cardizem and hopefully wean her off the Cardizem drip today. 01/01: Patient went into A. fib RVR with a heart rate in the 140s early this morning. She did respond well to a dose of Lopressor. Cardizem drip is down to 10 from 15 u/hr. She denies chest pain or shortness of breath. Will add oral Lopressor. Will continue weaning off the Cardizem drip. 01/02: Patient had episode of A. fib with RVR up to the 140s to 160s while on Cardizem drip earlier this morning. Upon encounter, she denies any chest pain or shortness of breath. We will give her a dose of digoxin. Will increase PO Lopressor. 01/03: Patient remains on Cardizem drip at 2.5 mg/h. She went to RVR in the 14 0s early this morning when she went to the bathroom. Upon encounter, she denies chest pain or shortness of breath. 01/04: Patient had episodes of RVR while on cardizem drip which was increased to 15 mg/hr. HR running at 70s at the moment. Decrease cardizem to 10 and will await further cardio recommendations. Reason For Visit: AFIB WITH RVR Physical Exam Vital Signs: Temp Pulse Resp BP Pulse Ox 98.3 F 70 18 116/48 L 99 01/04/19 07:24 01/04/19 07:24 01/04/19 07:24 01/04/19 07:24 01/04/19 07:24 Intake & Output 01/03/19 01/04/19 01/05/19 06:59 06:59 06:59 Intake Total 798 1464 1000 Balance 798 1464 1000 Weight 255 lb 11.779 oz 259 lb 14.8 oz General appearance: PRESENT: no acute distress, well-developed, well-nourished Head exam: PRESENT: atraumatic, normocephalic Eye exam: PRESENT: conjunctiva pink, EOMI, PERRLA. ABSENT: scleral icterus Ear exam: PRESENT: normal external ear exam Mouth exam: PRESENT: moist, tongue midline Neck exam: ABSENT: carotid bruit, JVD, lymphadenopathy, thyromegaly Respiratory exam: PRESENT: clear to auscultation andres. ABSENT: rales, rhonchi, wheezes Cardiovascular exam: PRESENT: irregular rhythm. ABSENT: diastolic murmur, rubs, systolic murmur Pulses: PRESENT: normal dorsalis pedis pul GI/Abdominal exam: PRESENT: normal bowel sounds, soft. ABSENT: distended, guarding, mass, organolmegaly, rebound, tenderness Rectal exam: PRESENT: deferred Extremities exam: PRESENT: full ROM. ABSENT: calf tenderness, clubbing, pedal edema Neurological exam: PRESENT: alert, awake, oriented to person, oriented to place, oriented to time, oriented to situation, CN II-XII grossly intact. ABSENT: motor sensory deficit Results Laboratory Results: 01/02/19 05:38 01/02/19 05:38 01/04/19 06:45 Urine Color YELLOW Urine Appearance CLEAR Urine pH 7.0 Ur Specific [place] 1.016 Urine Protein NEGATIVE Urine Glucose (UA) NEGATIVE Urine Ketones NEGATIVE Urine Blood NEGATIVE Urine Nitrite NEGATIVE Ur Leukocyte Esterase NEGATIVE Urine WBC (Auto) 1 12/30/18 12/30/18 12/30/18 11:50 11:50 11:50 Creatine Kinase 178 H CK-MB (CK-2) 1.38 Troponin I 0.024 NT-Pro-B Natriuret Pep 4480 H 12/30/18 12/30/18 12/31/18 15:45 19:23 01:15 Creatine Kinase CK-MB (CK-2) Troponin I 0.027 0.025 0.027 NT-Pro-B Natriuret Pep Impressions: Chest/Abdomen CTA 12/30/18 13:23 IMPRESSION: There is no evidence of pulmonary embolus. There is no aortic aneurysm. There is cardiomegaly with no eddie pulmonary edema. Assessment and Plan - Diagnosis (1) Atrial fibrillation with rapid ventricular response Is this a current diagnosis for this admission?: Yes Plan: Currently on Cardizem drip. We will restart her on p.o. Cardizem. Continue Eliquis. CHADVASC score of 2 as she does have hypertension. Echo done and pending. 01/01: Will add Lopressor 50 mg every 12 on top of p.o. Cardizem. Continue to wean down on Cardizem drip. 01/02: Patient had episode of A. fib with RVR up to the 140s to 160s while on Cardizem drip earlier this morning. Will give her a dose of digoxin. Will increase PO Lopressor to 100 mg q12. Continue PO cardizerm and weaning down on cardizem drip. 01/03: On Cardizem drip at 2.5 mg/h. Continue Lopressor 100 mg every 12, PO digoxin and PO Cardizem. Will consult cardiology for further recommendations. 01/04: Patient had episodes of RVR while on cardizem drip which was increased to 15 mg/hr. HR running at 70s at the moment. Decrease cardizem to 10 and will await further cardio recommendations. (2) HIV (human immunodeficiency virus infection) Qualifiers: HIV symptom status: asymptomatic Qualified Code(s): Z21 - Asymptomatic human immunodeficiency virus [HIV] infection status Is this a current diagnosis for this admission?: Yes Plan: Continue antiretrovirals. (3) HTN (hypertension) Is this a current diagnosis for this admission?: Yes Plan: On Cardizem and lopressor. - Time Time Spent with patient: 25-34 minutes
--- NOTE | 2019-01-04 14:08 | Progress Note ---
Provider Note Provider Note: CARDIOLOGY PROGRESS NOTE by Dr. Swapna Mcrae on 01/04/2019. SUBJECTIVE: The patient's heart rate is much improved and is well controlled at present. It is in the 80s. The patient denies any chest pain or discomfort. There is no PND orthopnea. There is no leg edema. There is no bleeding on Eliquis. There is no ventricular arrhythmia seen. There is no TIA CVA symptoms. Of note the patient confirms that she has no symptoms or signs of obstructive sleep apnea. In fact she stated few years ago she had a sleep study which was negative for sleep apnea. PHYSICAL EXAMINATION: The patient is morbidly obese. Well-groomed in no acute distress. Selected Entries 01/04/19 01/04/19 11:32 12:00 Temperature 98.7 F Temperature Oral Source Pulse Rate 75 Respiratory 18 Rate Blood Pressure 109/67 Blood Pressure 81 Mean BP Location Right Arm BP Position Sitting O2 Sat by Pulse 96 Oximetry Oxygen Delivery Room Air Method HEAD: Is atraumatic normocephalic. EYES: Pupils are equal round regular reactive to light and accommodation. There is no clinical pallor. There is no scleral icterus. External ocular movements are normal. EARS: Tympanic membranes are intact. External auditory canals are clear. NOSE: Nasal mucous membranes are not inflamed. There is no deviated nasal septum. MOUTH: Mucous membranes of mouth are moist. Tongue is moist. There is no ulcers. There is no bleeding from the gums. THROAT: There is no redness of the oropharynx. There is no exudates in the throat. SKIN: There is no petechia or ecchymosis. There is no skin rashes or skin lesions. NECK: Is supple. There is no JVD. Carotids are equal there is no bruits. There is no lymphadenopathy. There is no goiter. There is no accessory muscles of respiration in use. Trachea central. LUNGS: There is diminished air entry and prolonged expiration. On percussion there is hyperresonance. There is scattered rhonchi present. There is no rales or wheezing. There is no chest wall tenderness on palpation. HEART: S1-S2 is heard. S1 is of variable intensity. There is no S3 gallop. There is no S4 gallop. There is systolic murmur left sternal border and the apex, without radiation. There is no murmur of aortic stenosis. Prosthetic aortic valve click heard crisply. There is no aortic regurgitation murmur.. There is no rub. ABDOMEN: Is Nontender. There is no hepatosplenomegaly. Bowel sounds are well heard. EXTREMITIES: Femorals are deep. Femorals are slightly diminished. There is no femoral bruits. There is no pedal edema. There is no DVT or cellulitis. Leg pulses are diminished. There is no cyanosis or clubbing. Capillary refill is normal. There is no calf tenderness. BREWERY TECHNICIAN: The patient is conscious awake alert oriented x3 with no focal deficits. PSYCHIATRIC: The patient judgment and insight are intact her affect is normal. EKG: ATRIAL FIBRILLATION, V-RATE 63-109 [MVPC] . MULTIPLE VENTRICULAR PREMATURE COMPLEXES [RBBB] . RIGHT BUNDLE BRANCH BLOCK [LVHCO] . LVH WITH IVCD AND SECONDARY REPOL ABNRM Abnormal - 24 hr 01/04/19 10:02 Digoxin 0.78 L Chest/Abdomen CTA 12/30/18 13:23 IMPRESSION: There is no evidence of pulmonary embolus. There is no aortic aneurysm. There is cardiomegaly with no eddie pulmonary edema. [id number]/RECOMMENDATION: 1. Atrial fibrillation with rapid ventricular response. At present her ventricular response is controlled, with the patient still being atrial fibrillation. We will stop the patient's Cardizem drip. Continue the patient on Lopressor at 100 mg p.o. every 12 hours. Continue the patient on digoxin, but will increase to 0.25 mg p.o. daily, since the patient digoxin level is subtherapeutic. We will stop the patient's p.o. Cardizem. The patient seems to be well rehydrated, and does not appear to be volume depleted. Hence we will discontinue the patient with IV fluids. Will ambulate the patient. The patient's heart rate remained stable can be discharged home tomorrow. Continue Eliquis. 2. Hypertension: Blood pressure on the low worst side at present. 3. Hyperlipidemia: Patient has high LDL and low HDL levels. Continue statin an d diet modification. 4. Morbid obesity. 5. HIV positivity. Medications reviewed. Medication adjustments made. Medical regimen and management plan discussed with attending provider on the case. Medical decision making is of high complexity. 40 minutes spent on the patient more than 50% of time spent under patient care. Will follow
[2019-01-04] MEDS ORDERED: DIGOXIN 0.25 MG TABLET PO ONE (14:15)
[2019-01-04] MEDS: ATORVASTATIN CALCIUM 20 MG TABLET PO SCH (21:53)
[2019-01-05] MEDS: DOCUSATE SODIUM 100 MG/10 ML UDC PO SCH (09:35)
[2019-01-05] MEDS: APIXABAN 5 MG TABLET PO SCH (09:35)
[2019-01-05] MEDS: METOPROLOL TARTRATE 50 MG TABLET PO SCH (09:35)
[2019-01-05] MEDS: LOSARTAN POTASSIUM 25 MG TABLET PO SCH (09:35)
[2019-01-05] MEDS: FAMOTIDINE 20 MG TABLET PO SCH (09:35)
[2019-01-05] MEDS: ASPIRIN 81 MG TABLET, CHEWABLE PO SCH (09:35)
[2019-01-05] MEDS ORDERED: DIGOXIN 0.25 MG TABLET PO SCH (10:00)
[2019-01-05 13:03] VITALS: BP 106/52
--- NOTE | 2019-01-05 16:53 | PDOC DISCHARGE SUMMARY ---
Impression - Admit/DC Date/PCP Admission Date/Primary Care Provider: 01/01/19 14:50 MARILYN POE MD Discharge Date: 01/05/19 - Discharge Diagnosis (1) Atrial fibrillation with rapid ventricular response Is this a current diagnosis for this admission?: Yes (2) HIV (human immunodeficiency virus infection) Is this a current diagnosis for this admission?: Yes (3) HTN (hypertension) Is this a current diagnosis for this admission?: Yes - Additional Information Resuscitation Status: Full Code Discharge Diet: Cardiac Discharge Activity: Activity As Tolerated, Balance Activity w/Rest, Weigh Daily Referrals: NUVIA SLAUGHTER MD [ACTIVE STAFF] - 01/07/19 12:00 pm MARILYN POE MD [Primary Care Provider] - 01/02/19 8:15 am (01/02/19 @ 8:15) Prescriptions: Aspirin [Aspirin 81 mg Chewable Tablet] 81 mg PO DAILY #30 tab.chew Losartan Potassium [Cozaar 25 mg Tablet] 25 mg PO DAILY #30 tablet Digoxin [Lanoxin 0.25 mg Tablet] 0.25 mg PO DAILY #30 tablet Metoprolol Tartrate [Lopressor 50 mg Tablet] 100 mg PO Q12 #60 tablet Home Medications: Bictegrav/Emtricit/Tenofov Ala [Biktarvy 50-200-25 mg Tablet] 1 tab PO DAILY 12/27/18 Apixaban [Eliquis 5 mg Tablet] 5 mg PO BID #60 tablet 12/28/18 Atorvastatin Calcium [Lipitor 20 mg Tablet] 20 mg PO QHS #30 tablet 12/28/18 Aspirin [Aspirin 81 mg Chewable Tablet] 81 mg PO DAILY #30 tab.chew 01/05/19 Digoxin [Lanoxin 0.25 mg Tablet] 0.25 mg PO DAILY #30 tablet 01/05/19 Losartan Potassium [Cozaar 25 mg Tablet] 25 mg PO DAILY #30 tablet 01/05/19 Metoprolol Tartrate [Lopressor 50 mg Tablet] 100 mg PO Q12 #60 tablet 01/05/19 History of Present Illiness History of Present Illness: Admitting hospitalist's H&P: MYA ROCK is a 58 year old female past medical history of HIV, A. 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 fib RVR, was started on beta-blockers, disc harged home 48 hours ago, presenting to ED complaining of palpitations, shortness of breath, orthopnea, weakness and dizziness. In ED he was found to be in A. fib RVR, was given beta-blockers with no improvement. Patient denies any fever, chills, nausea, vomiting, chest pain, diarrhea, constipation or any urinary symptoms. Hospital Course Hospital Course: This is a 58-year-old female who was recently discharged for A. fib with RVR. She was readmitted after presenting with A. fib and RVR again. Patient was started on Cardizem drip. She is also recently discharged on Eliquis. Patient was started on IV Cardizem. She initially had good rate control but subsequently developed RVR we will being on Cardizem drip. Patient's hospitalization was prolonged after developing intermittent A. fib with RVR on attempt to wean off the Cardizem drip. Lopressor was increased. She was also resumed on her oral Cardizem. Digoxin was also added. Cardiology was subsequently consulted. She was also given IV fluids. Digoxin was increased. Her A. fib also improved eventually. She has been off Cardizem drip for more than 24 hours. Her heart rate was controlled. She was able to ambulate the hallway on room air without any symptoms from her A. fib. Her HR was well-controlled with increased dose of Lopressor and digoxin. She will closely follow-up with Dr. Virk for outpatient stress testing as well. Physical Exam Vital Signs: Temp Pulse Resp BP Pulse Ox 98.4 F 136 H 18 106/52 L 99 01/05/19 13:00 01/05/19 13:00 01/05/19 13:00 01/05/19 13:00 01/05/19 13:00 Intake & Output 01/04/19 01/05/19 01/06/19 06:59 06:59 06:59 Intake Total 1464 1859 Balance 1464 1859 Weight 259 lb 14.8 oz 262 lb 9.129 oz General appearance: PRESENT: no acute distress, well-developed, well-nourished Head exam: PRESENT: atraumatic, normocephalic Eye exam: PRESENT: conjunctiva pink, EOMI, PERRLA. ABSENT: scleral icterus Ear exam: PRESENT: normal external ear exam Mouth exam: PRESENT: moist, tongue midline Neck exam: ABSENT: carotid bruit, JVD, lymphadenopathy, thyromegaly Respiratory exam: PRESENT: clear to auscultation andres. ABSENT: rales, rhonchi, wheezes Cardiovascular exam: PRESENT: irregular rhythm. ABSENT: diastolic murmur, rubs, systolic murmur Pulses: PRESENT: normal dorsalis pedis pul GI/Abdominal exam: PRESENT: normal bowel sounds, soft. ABSENT: distended, guarding, mass, organolmegaly, rebound, tenderness Rectal exam: PRESENT: deferred Extremities exam: PRESENT: full ROM. ABSENT: calf tenderness, clubbing, pedal edema Neurological exam: PRESENT: alert, awake, oriented to person, oriented to place, oriented to time, oriented to situation, CN II-XII grossly intact. ABSENT: motor sensory deficit Results Laboratory Results: WBC 4.0 10^3/uL (4.0-10.5) 01/02/19 05:38 RBC 3.98 10^6/uL (3.72-5.28) 01/02/19 05:38 Hgb 12.1 g/dL (12.0-15.5) 01/02/19 05:38 Hct 37.2 % (36.0-47.0) 01/02/19 05:38 MCV 93 fl (80-97) 01/02/19 05:38 MCH 30.5 pg (27.0-33.4) 01/02/19 05:38 MCHC 32.7 g/dL (32.0-36.0) 01/02/19 05:38 RDW 13.8 % (11.5-14.0) 01/02/19 05:38 Plt Count 279 10^3/uL (150-450) 01/02/19 05:38 Lymph % (Auto) 48.2 % (13-45) H 01/02/19 05:38 [place] % (Auto) 14.5 % (3-13) H 01/02/19 05:38 Eos % (Auto) 0.1 % (0-6) 01/02/19 05:38 Baso % (Auto) 0.7 % (0-2) 01/02/19 05:38 Absolute Neuts (auto) 1.5 10^3/uL (1.7-8.2) L 01/02/19 05:38 Absolute Lymphs (auto) 1.9 10^3/uL (0.5-4.7) 01/02/19 05:38 Absolute Monos (auto) 0.6 10^3/uL (0.1-1.4) 01/02/19 05:38 Absolute Eos (auto) 0.0 10^3/uL (0.0-0.6) 01/02/19 05:38 Absolute Basos (auto) 0.0 10^3/uL (0.0-0.2) 01/02/19 05:38 Seg Neutrophils % 36.5 % (42-78) L 01/02/19 05:38 PT 16.1 SEC (11.4-15.4) H 12/30/18 11:50 INR 1.29 12/30/18 11:50 APTT 32.4 SEC (23.5-35.8) 12/30/18 11:50 Sodium 140.1 mmol/L (137-145) 01/02/19 05:38 Potassium 3.9 mmol/L (3.6-5.0) 01/02/19 05:38 Chloride 104 mmol/L (98-107) 01/02/19 05:38 Carbon Dioxide 25 mmol/L (22-30) 01/02/19 05:38 Anion Gap 11 (5-19) 01/02/19 05:38 BUN 17 mg/dL (7-20) 01/02/19 05:38 Creatinine 0.80 mg/dL (0.52-1.25) 01/02/19 05:38 Est GFR ( Amer) > 60 (>60) 01/02/19 05:38 Est GFR (MDRD) Non-Af > 60 (>60) 01/02/19 05:38 Glucose 103 mg/dL (75-110) 01/02/19 05:38 Calcium 9.1 mg/dL (8.4-10.2) 01/02/19 05:38 Magnesium 1.7 mg/dL (1.6-2.3) 01/02/19 05:38 Total Bilirubin 0.4 mg/dL (0.2-1.3) 12/30/18 11:50 Direct Bilirubin 0.1 mg/dL (0.0-0.4) 12/30/18 11:50 Neonat Total Bilirubin Not Reportable 12/30/18 11:50 Neonat Direct Bilirubin Not Reportable 12/30/18 11:50 Neonat Indirect Bili Not Reportable 12/30/18 11:50 AST 24 U/L (14-36) 12/30/18 11:50 ALT 17 U/L (<35) 12/30/18 11:50 Alkaline Phosphatase 57 U/L (38-126) 12/30/18 11:50 Creatine Kinase 178 U/L (30-135) H 12/30/18 11:50 CK-MB (CK-2) 1.38 ng/mL (<4.55) 12/30/18 11:50 Troponin I 0.027 ng/mL 12/31/18 01:15 NT-Pro-B Natriuret Pep 4480 pg/mL (5-900) H 12/30/18 11:50 Total Protein 7.0 g/dL (6.3-8.2) 12/30/18 11:50 Albumin 3.8 g/dL (3.5-5.0) 12/30/18 11:50 Triglycerides 121 mg/dL (<150) 12/31/18 06:07 Cholesterol 198.27 mg/dL (0-200) 12/31/18 06:07 LDL Cholesterol Direct 126 mg/dL (<100) H 12/31/18 06:07 VLDL Cholesterol 24.0 mg/dL (10-31) 12/31/18 06:07 HDL Cholesterol 39 mg/dL (>40) L 12/31/18 06:07 TSH 1.41 uIU/mL (0.47-4.68) 01/02/19 05:38 Free T4 1.16 ng/dL (0.78-2.19) 01/02/19 05:38 Free T3 pg/mL 3.29 pg/mL (2.77-5.27) 01/02/19 05:38 Urine Color YELLOW 01/04/19 06:45 Urine Appearance CLEAR 01/04/19 06:45 Urine pH 7.0 (5.0-9.0) 01/04/19 06:45 Ur Specific [place] 1.016 01/04/19 06:45 Urine Protein NEGATIVE mg/dL (NEGATIVE) 01/04/19 06:45 Urine Glucose (UA) NEGATIVE mg/dL (NEGATIVE) 01/04/19 06:45 Urine Ketones NEGATIVE mg/dL (NEGATIVE) 01/04/19 06:45 Urine Blood NEGATIVE (NEGATIVE) 01/04/19 06:45 Urine Nitrite NEGATIVE (NEGATIVE) 01/04/19 06:45 Urine Bilirubin NEGATIVE (NEGATIVE) 01/04/19 06:45 Urine Urobilinogen NEGATIVE mg/dL (<2.0) 01/04/19 06:45 Ur Leukocyte Esterase NEGATIVE (NEGATIVE) 01/04/19 06:45 Urine WBC (Auto) 1 /HPF 01/04/19 06:45 Urine Bacteria (Auto) TRACE /HPF 01/04/19 06:45 Squamous Epi Cells Auto 3 /HPF 01/04/19 06:45 Urine Mucus (Auto) RARE /LPF 01/04/19 06:45 Urine Ascorbic Acid NEGATIVE (NEGATIVE) 01/04/19 06:45 Digoxin 0.78 ng/mL (0.8-2.0) L 01/04/19 10:02 12/30/18 12/30/18 12/30/18 11:50 11:50 15:45 CK-MB (CK-2) 1.38 Troponin I 0.024 0.027 NT-Pro-B Natriuret Pep 4480 H 12/30/18 12/31/18 19:23 01:15 CK-MB (CK-2) Troponin I 0.025 0.027 NT-Pro-B Natriuret Pep Impressions: Chest/Abdomen CTA 12/30/18 13:23 IMPRESSION: There is no evidence of pulmonary embolus. There is no aortic aneurysm. There is cardiomegaly with no eddie pulmonary edema. Stroke Is this a Stroke Patient?: No Acute Heart Failure - Is this a Heart Failure Patient?: No
== END 2019-01-05 13:35 | disposition home health service (06) | DRG 310 ==
LOC: ER 11:44 → EH 15:15 → INTOOBSV 15:15 → 3S 18:11 → OBSVTOIN 01-01 14:50
PROVIDERS: ADMIT Internal Medicine; ATTEND Internal Medicine
DX: I48.91 Unspecified atrial fibrillation (principal); I10 Essential (primary) hypertension; Z21 Asymptomatic human immunodeficiency virus [HIV] infection status; E66.01 Morbid (severe) obesity due to excess calories; J45.909 Unspecified asthma, uncomplicated; D64.9 Anemia, unspecified; K21.9 Gastro-esophageal reflux disease without esophagitis; Z79.899 Other long term (current) drug therapy; Z79.02 Long term (current) use of antithrombotics/antiplatelets; Z87.891 Personal history of nicotine dependence; Z88.1 Allergy status to other antibiotic agents
CPT/HCPCS: 36415; 71275; 80048; 80053; 80061; 80162; 81001; 82550; 82553; 83735; 83880; 84439; 84443; 84481; 84484; 85025; 85610; 85730; 93005; 93010; 93306; 94640; 96374; 96376; 99285; G0378; J1160; J1940; J3490; J7030; J7620

== ENCOUNTER 2019-01-13 16:32 | Emergency (ER) | payer BC ==
--- NOTE | 2019-01-13 17:05 | ER Document Report ---
ED Cardiac - General Chief Complaint: Shortness Of Breath Stated Complaint: CHEST PAIN Time Seen by Provider: 01/13/19 16:55 Primary Care Provider: MARILYN POE MD [Primary Care Provider] - Follow up as needed Information source: Patient Notes: HPI: 58-year-old female who presents today with what she states is a fast heart rate with some lightheadedness and shortness of breath starting around 3 days ago. Patient has a history of intermittent atrial fibrillation with RVR from 2017. She was admitted around 10 days ago after recently being discharged from a [facility] ([facility]) and started on a beta-aleja. She had atrial fibrillation with rapid ventricular response at that time. She was readmitted around 2 days later with some resistant atrial fibrillation with rapid ventricular response with an increased dose of Lopressor with the addition of digoxin and Eliquis. She had a CTA of the chest that was unremarkable. ROS: See HPI All other review of systems reviewed and otherwise negative Reviewed vital signs and nursing note as charted by RN. PHYSICAL EXAM: CONSTITUTIONAL: Alert and oriented and responds appropriately to questions. Well-appearing; well-nourished HEAD: Normocephalic; atraumatic EYES: PERRL; Conjunctivae clear, sclerae non-icteric ENT: Normal nose; no rhinorrhea; moist mucous membranes; pharynx without lesions noted NECK: Supple without meningismus; non-tender; no cervical lymphadenopathy, no masses CARD: Tachycardic and irregular regular; no murmurs; symmetric distal pulses RESP: Normal chest excursion without splinting or tachypnea; breath sounds clear and equal bilaterally; no wheezes, no rhonchi, no rales ABD/GI: Normal bowel sounds; elevated BMI; soft, non-tender; no palpable organomegaly or masses BACK: The back appears normal and is non-tender to palpation EXT: Normal ROM in all joints; non-tender to palpation; 1+ bilateral lower extremity edema SKIN: No acute lesions noted NEURO: CN 2-12 intact; 5/5 bilateral upper and lower extremity strength with sensation intact to light touch PSYCH: The patient's mood and manner are appropriate. Grooming and personal hygiene are appropriate. TRAVEL OUTSIDE OF THE [place] IN LAST 30 DAYS: No - Related Data Allergies/Adverse Reactions: ciprofloxacin [From Cipro] Allergy (Mild, Verified 11/22/18 10:09) Hives ciprofloxacin HCl [From Cipro] Allergy (Mild, Verified 11/22/18 10:09) Hives Past Medical History - Social History Smoking Status: Never Smoker Frequency of alcohol use: None Drug Abuse: None Family History: Reviewed & Not Pertinent, CAD, Hypertension Patient has suicidal ideation: No Patient has homicidal ideation: No - Past Medical History Cardiac Medical History: Reports: Hx Atrial Fibrillation Pulmonary Medical History: Reports: Hx Asthma Renal/ Medical History: Denies: Hx Peritoneal Dialysis GI Medical History: Reports: Hx Gastroesophageal Reflux Disease Psychiatric Medical History: Denies: Hx Depression Infectious Medical History: Reports: Hx HIV Past Surgical History: Reports: Hx Cardiac Catheterization - Apr 2015, unremarkable., Hx Section, Hx Hysterectomy, Hx Orthopedic Surgery - L ankle, Hx Tubal Ligation - Immunizations Immunizations up to date: Yes Hx Diphtheria, Pertussis, Tetanus Vaccination: Yes - 2007 Hx Pneumococcal Vaccination: 03/12/17 Physical Exam - Vital signs Vitals: Resp Pulse Ox 18 98 01/13/19 16:47 01/13/19 16:47 Course - Re-evaluation Re-evalutation: EKG shows heart of 130 with atrial fibrillation with rapid ventricular response as well as a right bundle branch block and LVH. Inverted T waves in leads V2 through V6 01/13/19 17:04 Given the history and physical examination we will order basic labs, x-ray of the chest, start the patient on a diltiazem drip after small bolus, reconsult cardiology, and reassess. Given that the patient denies any real chest pain, history of this similar presentation multiple times, unremarkable CTA of the chest previously, I do not believe dissection or PE is likely at this moment. 01/13/19 17:57 Labs and imaging as recorded. Troponin is lower than it was previously. It is undetectable at this moment. BNP is elevated around the same level as it was on previous admission. Patient's heart rate after 1 Cardizem bolus is 87. I will attempt to call the patient's physician aide. 01/13/19 18:00 Labs as recorded. I called him directly and spoken to the physician aide Dr. Virk. He is very familiar with this patient. We have gone over the medication changes that were previously provided. He understands the elevated BNP. Repeat x-ray of the chest as recorded here. He would like me to start the patient on Cardizem CD 120 mg daily. He would like me to add this to the patient's current regimen. Patient is comfortable with this plan. She denies any shortness of breath or chest pain at this time. Repeat EKG shows heart rate of 76, atrial fibrillation, PVCs present, no appreciable ST segment changes. Patient is comfortable with this plan. Assistant Professor Nurse Education will have the patient call tomorrow morning. - Vital Signs Vital signs: Temp Pulse Resp BP Pulse Ox 24 H 156/116 H 100 01/13/19 17:10 01/13/19 17:10 01/13/19 17:10 - Laboratory Result Diagrams: 01/13/19 17:02 01/13/19 17:02 Laboratory results interpreted by me: 01/13/19 01/13/19 01/13/19 17:02 17:02 17:02 RBC 3.64 L Hgb 11.6 L Hct 34.4 L Lymph % (Auto) 47.2 H NT-Pro-B Natriuret Pep 4900 H Digoxin 0.44 L Critical Care Note - Critical Care Note Total time excluding time spent on procedures (mins): 35 Discharge - Discharge Clinical Impression: Atrial fibrillation with rapid ventricular response Condition: Fair Disposition: HOME, SELF-CARE Additional Instructions: Please add Cardizem medication in addition to your current regimen once daily as discussed. Please follow-up with the physician aide tomorrow as we have helped expedite for you. Come back immediately with any chest pain, shortness of breath, leg swelling, fast heart rate, lightheadedness or dizziness, or any other acute problems. Prescriptions: Diltiazem HCl [Cardizem Cd 120 mg Capsule] 1 cap.sr PO DAILY #30 cap.sr Referrals: MARILYN POE MD [Primary Care Provider] - Follow up as needed
[2019-01-13] MEDS ORDERED: DILTIAZEM HCL INJ 25 MG/5 ML VIAL IV ONE (17:07)
[2019-01-13] MEDS ORDERED: DILTIAZEM HCL/D5W 125 MG/125 ML RTUINJ IV PRN (17:07)
--- NOTE | 2019-01-13 17:22 | RADIOLOGY REPORT (SQ) ---
EXAM DESCRIPTION: CHEST 2 VIEWS COMPLETED DATE/TIME: 01/13/2019 5:09 pm REASON FOR STUDY: 16; sob COMPARISON: 12/27/2018 TECHNIQUE: Frontal and lateral radiographic views of the chest acquired. NUMBER OF VIEWS: Two view. LIMITATIONS: None. FINDINGS: LUNGS AND PLEURA: No pneumothorax. No consolidation or pleural effusion. MEDIASTINUM AND HILAR STRUCTURES: Stable contour. HEART AND VASCULAR STRUCTURES: Stable cardiomegaly. BONES: No acute findings. HARDWARE: None in the chest. OTHER: No other significant finding. IMPRESSION: NO ACUTE FINDINGS. TECHNICAL DOCUMENTATION: JOB ID: [id number] [id number] 2010 [employer]- All Rights Reserved Reading location - IP/workstation name: [email or web address]
[2019-01-13 17:24] LABS: ABSOLUTE LYMPHOCYTES (AUTO) 2.3 10^3/uL (0.5-4.7); ABSOLUTE MONOCYTES (AUTO) 0.5 10^3/uL (0.1-1.4); BASOPHILS % (AUTO) 0.7 % (0-2); EOSINOPHILS % (AUTO) 0.3 % (0-6); HEMATOCRIT 34.4 % (36.0-47.0); HEMOGLOBIN 11.6 g/dL (12.0-15.5); LYMPHOCYTES % (AUTO) 47.2 % (13-45); MEAN CORPUSCULAR HEMOGLOBIN 31.9 pg (27.0-33.4); MEAN CORPUSCULAR HGB CONC 33.8 g/dL (32.0-36.0); MEAN CORPUSCULAR VOLUME 95 fl (80-97); MONOCYTES % (AUTO) 9.7 % (3-13); PLATELET COUNT 298 10^3/uL (150-450); RED BLOOD COUNT 3.64 10^6/uL (3.72-5.28); RED CELL DISTRIBUTION WIDTH 13.7 % (11.5-14.0); SEGMENTED NEUTROPHILS % (AUTO) 42.1 % (42-78); TOTAL CELLS COUNTED % (AUTO) 100 %; WHITE BLOOD COUNT 4.9 10^3/uL (4.0-10.5)
[2019-01-13 17:39] LABS: ANION GAP 10 (5-19); BLOOD UREA NITROGEN 18 mg/dL (7-20); CALCIUM 9.5 mg/dL (8.4-10.2); CARBON DIOXIDE 26 mmol/L (22-30); CHLORIDE 107 mmol/L (98-107); DIGOXIN 0.44 ng/mL (0.8-2.0); GLUCOSE 100 mg/dL (75-110)
[2019-01-13 17:47] LABS: NT PRO BNP 4900 pg/mL (<125)
[2019-01-13 17:48] LABS: TROPONIN I < 0.012 ng/mL
[2019-01-13 18:29] VITALS: BP 118/84
--- NOTE | 2019-01-14 09:45 | EKG REPORT ---
SEVERITY:- ABNORMAL ECG - ATRIAL FIBRILLATION, V-RATE 86-195 VENTRICULAR PREMATURE COMPLEX RIGHT BUNDLE BRANCH BLOCK LVH WITH IVCD AND SECONDARY REPOL ABNRM : Confirmed by: Trae Villafana 14-Jan-2019 09:44:38
--- NOTE | 2019-01-14 09:45 | EKG REPORT ---
SEVERITY:- ABNORMAL ECG - ATRIAL FIBRILLATION, V-RATE 62-91 RBBB AND LAFB LEFT VENTRICULAR HYPERTROPHY : Confirmed by: Trae Villafana 14-Jan-2019 09:44:30
== END 2019-01-13 18:40 | disposition home or self-care (01) ==
LOC: ER 16:32
DX: I48.20 Chronic atrial fibrillation, unspecified (principal); R06.02 Shortness of breath; R07.9 Chest pain, unspecified; Z88.3 Allergy status to other anti-infective agents
CPT/HCPCS: 93005; 99291; 96374; 36415; 80162; 85025; 80048; 84484; 83880; 71046; 93010; J3490

== ENCOUNTER 2019-02-07 09:05 | Inpatient (IN) | payer BC ==
[2019-02-07 09:55] LABS: ABSOLUTE LYMPHOCYTES (AUTO) 1.6 10^3/uL (0.5-4.7); ABSOLUTE MONOCYTES (AUTO) 0.5 10^3/uL (0.1-1.4); BASOPHILS % (AUTO) 0.9 % (0-2); EOSINOPHILS % (AUTO) 0.1 % (0-6); HEMATOCRIT 37.2 % (36.0-47.0); HEMOGLOBIN 12.2 g/dL (12.0-15.5); LYMPHOCYTES % (AUTO) 38.1 % (13-45); MEAN CORPUSCULAR HEMOGLOBIN 31.3 pg (27.0-33.4); MEAN CORPUSCULAR VOLUME 95 fl (80-97); MONOCYTES % (AUTO) 11.4 % (3-13); PLATELET COUNT 266 10^3/uL (150-450); RED BLOOD COUNT 3.91 10^6/uL (3.72-5.28); RED CELL DISTRIBUTION WIDTH 13.9 % (11.5-14.0); SEGMENTED NEUTROPHILS % (AUTO) 49.5 % (42-78); TOTAL CELLS COUNTED % (AUTO) 100 %; WHITE BLOOD COUNT 4.1 10^3/uL (4.0-10.5)
[2019-02-07] MEDS ORDERED: DILTIAZEM HCL INJ 25 MG/5 ML VIAL IV ONE (09:59)
--- NOTE | 2019-02-07 10:12 | RADIOLOGY REPORT (SQ) ---
EXAM DESCRIPTION: CHEST SINGLE VIEW COMPLETED DATE/TIME: 02/07/2019 9:57 am REASON FOR STUDY: sob COMPARISON: 01/13/2019 NUMBER OF VIEWS: One view. TECHNIQUE: Single frontal radiographic view of the chest acquired. LIMITATIONS: None. FINDINGS: LUNGS AND PLEURA: No opacities, masses or pneumothorax. No pleural effusion. MEDIASTINUM AND HILAR STRUCTURES: No masses or contour abnormality. HEART AND VASCULATURE: Cardiac enlargement. Vascular congestion. BONES: No acute findings. HARDWARE: None in the chest. OTHER: No other significant finding. IMPRESSION: CARDIAC ENLARGEMENT. VASCULAR CONGESTION. TECHNICAL DOCUMENTATION: JOB ID: [id number] [employer]- All Rights Reserved Reading location - IP/workstation name: [email or web address]
[2019-02-07 10:13] LABS: ALBUMIN 3.8 g/dL (3.5-5.0); ALKALINE PHOSPHATASE 91 U/L (38-126); ANION GAP 10 (5-19); ASPARTATE AMINO TRANSFERASE 47 U/L (14-36); BILIRUBIN,DIRECT 0.1 mg/dL (0.0-0.4); BILIRUBIN,TOTAL 0.8 mg/dL (0.2-1.3); BLOOD UREA NITROGEN 16 mg/dL (7-20); CALCIUM 9.2 mg/dL (8.4-10.2); CARBON DIOXIDE 25 mmol/L (22-30); CHLORIDE 110 mmol/L (98-107); CREATINE KINASE 102 U/L (30-135); GLUCOSE 110 mg/dL (75-110); POTASSIUM 4.3 mmol/L (3.6-5.0); TOTAL PROTEIN 6.9 g/dL (6.3-8.2)
[2019-02-07 10:28] LABS: CREATINE KINASE MB 0.94 ng/mL (<4.55)
[2019-02-07 10:29] LABS: TROPONIN I < 0.012 ng/mL
[2019-02-07 10:29] LABS: APPEARANCE,URINE SLIGHTLY-CLOUDY; BILIRUBIN,URINE NEGATIVE (NEGATIVE); COLOR,URINE YELLOW; GLUCOSE, URINE NEGATIVE (NEGATIVE); KETONES,URINE NEGATIVE (NEGATIVE); LEUKOCYTE ESTERASE,URINE NEGATIVE (NEGATIVE); NITRITE,URINE NEGATIVE (NEGATIVE); PROTEIN,URINE 100 mg/dL (NEGATIVE); URINE SPECIFIC GRAVITY 1.025
[2019-02-07] MEDS: DILTIAZEM HCL/D5W 125 MG/125 ML RTUINJ IV PRN ×2 (10:36→23:51)
[2019-02-07] MEDS ORDERED: IPRATROPIUM BROMIDE 0.02% NEB 0.5 MG/2.5 ML AMPUL NEB ONE (10:37)
--- NOTE | 2019-02-07 11:25 | ER Document Report ---
Entered by HUMERA IGLESIAS SCRIBE 02/07/19 0959 Acting as scribe for:KYLE MORAES MD ED General - General Chief Complaint: Shortness Of Breath Stated Complaint: SHORT OF BREATH, VOMITING Time Seen by Provider: 02/07/19 09:44 Primary Care Provider: MARILYN POE MD [Primary Care Provider] - Follow up as needed Information source: Patient Notes: This 58 year old female patient presents to the emergency department today with complaints of a rapid heart beat along with a four day history of shortness of breath, nausea, cough, wheezing, and vomiting. Patient states that she seems to only vomit after a coughing spell. Patient states that her shortness of breath is much worse if she is lying down in a supine position. Patient states that she has a history of asthma. Patient has been seen and admitted here for atrial fibrillation with RVR multiple times in the past few months. Pertinent PMHx/PSHx: Atrial fibrillation, asthma - additional PMHx/PSHx not pertinent to this visit as recorded. TRAVEL OUTSIDE OF THE [place] IN LAST 30 DAYS: No - Related Data Allergies/Adverse Reactions: ciprofloxacin [From Cipro] Allergy (Mild, Verified 11/22/18 10:09) Hives ciprofloxacin HCl [From Cipro] Allergy (Mild, Verified 11/22/18 10:09) Hives Past Medical History - General Information source: Patient - Social History Smoking Status: Former Smoker - Quit in 2010 Cigarette use (# per day): No Chew tobacco use (# tins/day): No Frequency of alcohol use: None Drug Abuse: None Lives with: Family Family History: Reviewed & Not Pertinent, CAD, Hypertension Patient has suicidal ideation: No Patient has homicidal ideation: No - Past Medical History Cardiac Medical History: Reports: Hx Atrial Fibrillation Pulmonary Medical History: Reports: Hx Asthma GI Medical History: Reports: Hx Gastroesophageal Reflux Disease Infectious Medical History: Reports: Hx HIV Past Surgical History: Reports: Hx Cardiac Catheterization - Apr 2015, unremarkable., Hx Section, Hx Hysterectomy, Hx Orthopedic Surgery - L ankle, Hx Tubal Ligation - Immunizations Immunizations up to date: Yes Hx Diphtheria, Pertussis, Tetanus Vaccination: Yes - 2007 Hx Pneumococcal Vaccination: 03/12/17 Review of Systems - Review of Systems Constitutional: No symptoms reported EENT: No symptoms reported Cardiovascular: See HPI, Heart racing Respiratory: See HPI, Cough, Wheezing Gastrointestinal: See HPI, Abdominal pain, Nausea, Vomiting Genitourinary: No symptoms reported Female Genitourinary: No symptoms reported Musculoskeletal: No symptoms reported Skin: No symptoms reported Hematologic/Lymphatic: No symptoms reported Neurological/Psychological: No symptoms reported -: Yes All other systems reviewed and negative Physical Exam - Vital signs Vitals: Temp Pulse Resp BP Pulse Ox 97.7 F 77 24 H 111/74 98 02/07/19 09:12 02/07/19 09:12 02/07/19 09:12 02/07/19 09:12 02/07/19 09:12 - Notes Notes: Physical Exam: General: Alert, appears well. HEENT: Normocephalic. Atraumatic. PERRL. Extraocular movements intact. Oropharynx clear. Neck: Supple. Non-tender. Respiratory: No respiratory distress. Wheezing bilaterally Cardiovascular: Tachycardic, irregularly irregular. Abdominal: Normal Inspection. Non-tender. No distension. Normal Bowel Sounds. Back: No gross abnormalities. Extremities: Moves all four extremities. Upper extremities: Normal inspection. Normal ROM. Lower extremities: Normal inspection. No edema. Normal ROM. Neurological: Normal cognition. AAOx4. Normal speech. Psychological: Normal affect. Normal Mood. Skin: Warm. Dry. Normal color. Course - Re-evaluation Re-evalutation: 02/07/19 11:26 After the Cardizem bolus and Cardizem drip, the patient's heart rate slowed down to the 100 range. - Vital Signs Vital signs: Temp Pulse Resp BP Pulse Ox 97.7 F 77 21 H 125/89 H 100 02/07/19 09:12 02/07/19 09:12 02/07/19 11:01 02/07/19 11:01 02/07/19 11:01 - Laboratory Result Diagrams: 02/07/19 09:45 02/07/19 09:45 Laboratory results interpreted by me: 02/07/19 02/07/19 02/07/19 09:45 09:45 10:08 Chloride 110 H AST 47 H NT-Pro-B Natriuret Pep 4980 H Urine Protein 100 H Urine Urobilinogen 4.0 H - Diagnostic Test Radiology reviewed: Image reviewed, Reports reviewed - Chest x-ray shows cardiac enlargement with pulmonary vascular congestion - EKG Interpretation by Me EKG shows normal: [place], Intervals, QRS Complexes, ST-T Waves Rate: Tachycardia - 161 Rhythm: A.Fib [place]/QRS: RBBB, LAHB/LAFB - Consults JUANA Hayward Time consulted: 10:45 Consulted provider: will come to ER Critical Care Note - Critical Care Note Total time excluding time spent on procedures (mins): 40 Discharge - Discharge Clinical Impression: Atrial fibrillation with rapid ventricular response, Pulmonary vascular congestion, Shortness of breath, HIV disease Condition: Good Disposition: ADMITTED INPATIENT Admitting Provider: Oziel (Hospitalist) Unit Admitted: IMCU Referrals: MARILYN POE MD [Primary Care Provider] - Follow up as needed Scribe Attestation: 02/07/19 10:03 I personally performed the services described in the documentation, reviewed and edited the documentation which was dictated to the scribe in my presence, and it accurately records my words and actions. I personally performed the services described in the documentation, reviewed and edited the documentation which was dictated to the scribe in my presence, and it accurately records my words and actions.
[2019-02-07] MEDS ORDERED: ACETAMINOPHEN 325 MG TABLET PO PRN (12:01)
[2019-02-07] MEDS ORDERED: ONDANSETRON 4 MG TAB.RAPDIS PO PRN (12:01)
[2019-02-07] MEDS ORDERED: ONDANSETRON HCL INJ/PF 4 MG/2 ML SDV IV PRN (12:01)
[2019-02-07] MEDS ORDERED: OXYCODONE-ACETAMINOPHEN 5-325 MG TABLET PO PRN (12:01)
--- NOTE | 2019-02-07 12:17 | EKG REPORT ---
SEVERITY:- ABNORMAL ECG - A FIB, RVR RIGHT BUNDLE BRANCH BLOCK : Confirmed by: Trae Villafana 07-Feb-2019 12:16:26
[2019-02-07 12:18] LABS: DIGOXIN < 0.40 ng/mL (0.8-2.0)
--- NOTE | 2019-02-07 12:40 | PDOC H&P ---
History of Present Illness Admission Date/PCP: 02/07/19 11:29 MARILYN POE MD History of Present Illness: MYA ROCK is a 58 year old female with a 2 to 3-day history of shortness of breath, abdominal pain, vomiting, diarrhea. Patient has a history of atrial fib with RVR in fact she was in the hospital on December 27 and then readmitted on December 31 and then seen in the emergency room on January 13 all with atrial fib RVR. 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 She has not had any diarrhea in 2 days now. Patient also states that she is taking her medicine like she supposed to and she actually saw her men's golf coach about 3 weeks ago. I think on this occasion this gastroenteritis has caused her to go back in atrial fib She is currently on a Cardizem drip in the ER states her symptoms are better since coming to the ER Past Medical History Cardiac Medical History: Reports: Atrial Fibrillation, Hyperlipidema, Hypertension Pulmonary Medical History: Reports: Asthma GI Medical History: Reports: Gastroesophageal Reflux Disease Psychiatric Medical History: Denies: Depression Hematology: Reports: Anemia Infectious Medical History: Reports: HIV Past Surgical History Past Surgical History: Reports: Cardiac Catheterization - Apr 2015, unremarkable., Section, Hysterectomy, Orthopedic Surgery - L ankle, Tubal Ligation Social History Lives with: Family Smoking Status: Former Smoker - Quit in 2010 Electronic Cigarette use?: No Frequency of Alcohol Use: None Hx Recreational Drug Use: Yes Drugs: Marijuana Hx Prescription Drug Abuse: No - Advance Directive Resuscitation Status: Full Code Family History Family History: Reviewed & Not Pertinent, CAD, Hypertension Parental Family History Reviewed: No Children Family History Reviewed: No Sibling(s) Family History Reviewed.: No Medication/Allergy Allergies/Adverse Reactions: ciprofloxacin [From Cipro] Allergy (Mild, Verified 11/22/18 10:09) Hives ciprofloxacin HCl [From Cipro] Allergy (Mild, Verified 11/22/18 10:09) Hives Review of Systems Constitutional: PRESENT: anorexia, weakness. ABSENT: chills, fever(s), headache(s), weight gain, weight loss Gastrointestinal: PRESENT: diarrhea, heartburn, vomiting Neurological: ABSENT: abnormal gait, abnormal speech, confusion, dizziness, focal weakness, syncope Psychiatric: ABSENT: anxiety, depression, homidical ideation, suicidal ideation Physical Exam Vital Signs: Temp Pulse Resp BP Pulse Ox 97.7 F 77 21 H 125/89 H 100 02/07/19 09:12 02/07/19 09:12 02/07/19 11:01 02/07/19 11:01 02/07/19 11:01 Intake & Output 02/06/19 02/07/19 02/08/19 06:59 06:59 06:59 Weight 118 kg General appearance: PRESENT: no acute distress, other - Able to talk in full sentences with no chest pain Respiratory exam: PRESENT: clear to auscultation andres. ABSENT: rales, rhonchi, wheezes Cardiovascular exam: PRESENT: irregular rhythm, tachycardia, other - Rate had been as high as 160-190 it is now approximately 117 Neurological exam: PRESENT: alert, awake, oriented to person, oriented to place, oriented to time, oriented to situation, CN II-XII grossly intact. ABSENT: motor sensory deficit Psychiatric exam: PRESENT: appropriate affect, normal mood. ABSENT: homicidal ideation, suicidal ideation Results Laboratory Results: 02/07/19 09:45 02/07/19 09:45 02/07/19 02/07/19 02/07/19 09:45 09:45 10:08 WBC 4.1 RBC 3.91 Hgb 12.2 Hct 37.2 MCV 95 MCH 31.3 MCHC 33.0 RDW 13.9 Plt Count 266 Seg Neutrophils % 49.5 Sodium 144.5 Potassium 4.3 Chloride 110 H Carbon Dioxide 25 Anion Gap 10 BUN 16 Creatinine 0.88 Est GFR ( Amer) > 60 Glucose 110 Calcium 9.2 Total Bilirubin 0.8 AST 47 H Alkaline Phosphatase 91 Total Protein 6.9 Albumin 3.8 Urine Color YELLOW Urine Appearance SLIGHTLY-CLOUDY Urine pH 6.0 Ur Specific [place] 1.025 Urine Protein 100 H Urine Glucose (UA) NEGATIVE Urine Ketones NEGATIVE Urine Blood NEGATIVE Urine Nitrite NEGATIVE Ur Leukocyte Esterase NEGATIVE Urine WBC (Auto) 3 Urine RBC (Auto) 13 02/07/19 02/07/19 02/07/19 09:45 09:45 09:45 Creatine Kinase 102 CK-MB (CK-2) 0.94 Troponin I < 0.012 NT-Pro-B Natriuret Pep 4980 H Impressions: Chest X-Ray 02/07/19 09:21 IMPRESSION: CARDIAC ENLARGEMENT. VASCULAR CONGESTION. Assessment and Plan - Diagnosis (1) Gastroenteritis Is this a current diagnosis for this admission?: Yes (2) Atrial fibrillation with rapid ventricular response Is this a current diagnosis for this admission?: Yes (3) HIV disease Is this a current diagnosis for this admission?: Yes (4) Shortness of breath Is this a current diagnosis for this admission?: Yes (5) HIV (human immunodeficiency virus infection) Qualifiers: Is this a current diagnosis for this admission?: Yes (6) HTN (hypertension) Is this a current diagnosis for this admission?: Yes - Plan Summary Summary: 02/07/2019 Patient is very pleasant in no distress. 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 3 days ago she did start to have some vomiting and some diarrhea. He thereafter she started getting more short of breath and palpitations . She states that she is gone back to her regular men's golf coach now and saw him approximately 3 weeks ago.. I told her that we will hydrate her but not slow down her gastroenteritis. If the vomiting becomes persistent or intractable, a slow it down or stop it at that point. She has had no diarrhea for 48 hours. We will keep her on a Cardizem drip, I have ordered her home medications. she appears medically stable. She would prefer not to see the men's golf coach if at all possible instead see her men's golf coach as an outpatient. If patient has no complications and converts easily then we should be able to do this. - Time Time Spent with patient: 35 or more minutes
[2019-02-07] MEDS: METOPROLOL SUCCINATE 50 MG TAB.SR.24H PO SCH ×2 (13:03→22:31)
[2019-02-07] MEDS: PANTOPRAZOLE SODIUM 20 MG TABLET.DR PO SCH (14:17)
[2019-02-07] MEDS: DIGOXIN 0.05 MG/ML SOLN 60 ML PO SCH (14:18)
[2019-02-07] MEDS: NORMAL SALINE 1000 ML 1,000 ML IV PRN ×2 (14:26→23:50)
[2019-02-07] MEDS: APIXABAN 5 MG TABLET PO SCH (17:27)
[2019-02-07] MEDS: ATORVASTATIN CALCIUM 20 MG TABLET PO SCH (22:31)
[2019-02-08] MEDS: PANTOPRAZOLE SODIUM 20 MG TABLET.DR PO SCH (05:14)
[2019-02-08 06:49] LABS: PHOSPHORUS 3.6 mg/dL (2.5-4.5)
[2019-02-08] MEDS: NORMAL SALINE 1000 ML 1,000 ML IV PRN (08:28)
[2019-02-08] MEDS ORDERED: ENOXAPARIN SODIUM INJ 40 MG/0.4 ML DISP.SYRIN SUBCUT SCH (10:00)
[2019-02-08] MEDS: APIXABAN 5 MG TABLET PO SCH ×2 (11:06→18:05)
[2019-02-08] MEDS: LOSARTAN POTASSIUM 25 MG TABLET PO SCH (11:06)
[2019-02-08] MEDS: METOPROLOL SUCCINATE 50 MG TAB.SR.24H PO SCH ×2 (11:06→22:14)
[2019-02-08] MEDS: DIGOXIN 0.05 MG/ML SOLN 60 ML PO SCH (11:07)
[2019-02-08] MEDS: DOCUSATE SODIUM 100 MG CAPSULE PO SCH (11:08)
--- NOTE | 2019-02-08 11:57 | PDOC PROGRESS REPORT ---
Subjective Progress Note for:: 02/08/19 Reason For Visit: ATRIAL FIBRILLATION WITH RAPID VENTRICULAR 02/08/2019 Patient converted from A. fib last night around 1700 hrs.. She has had no chest pain, no shortness of breath. Still has nausea and has vomited one time since admission Physical Exam Vital Signs: Temp Pulse Resp BP Pulse Ox 98.1 F 86 15 113/91 H 98 02/08/19 08:24 02/08/19 08:32 02/08/19 08:24 02/08/19 08:32 02/08/19 08:24 Intake & Output 02/07/19 02/08/19 02/09/19 06:59 06:59 06:59 Intake Total 1765 1087 Balance 1765 1087 Weight 119.2 kg General appearance: PRESENT: no acute distress, other - Patient voices no complaints other than nauseated Respiratory exam: PRESENT: clear to auscultation andres. ABSENT: rales, rhonchi, wheezes Cardiovascular exam: PRESENT: RRR. ABSENT: diastolic murmur, rubs, systolic murmur GI/Abdominal exam: PRESENT: normal bowel sounds, soft, other - Patient is eating a regular diet. ABSENT: distended, guarding, mass, organolmegaly, rebound, tenderness Neurological exam: PRESENT: alert, awake, oriented to person, oriented to place, oriented to time, oriented to situation, CN II-XII grossly intact. ABSENT: motor sensory deficit Psychiatric exam: PRESENT: appropriate affect, normal mood. ABSENT: homicidal ideation, suicidal ideation Results Laboratory Results: 02/07/19 09:45 02/07/19 09:45 02/08/19 06:15 Phosphorus 3.6 Magnesium 1.7 02/07/19 02/07/19 02/07/19 09:45 09:45 09:45 Creatine Kinase 102 CK-MB (CK-2) 0.94 Troponin I < 0.012 NT-Pro-B Natriuret Pep 4980 H Impressions: Chest X-Ray 02/07/19 09:21 IMPRESSION: CARDIAC ENLARGEMENT. VASCULAR CONGESTION. Assessment and Plan - Diagnosis (1) Gastroenteritis Is this a current diagnosis for this admission?: Yes (2) Atrial fibrillation with rapid ventricular response Is this a current diagnosis for this admission?: Yes (3) HIV disease Is this a current diagnosis for this admission?: Yes (4) Shortness of breath Is this a current diagnosis for this admission?: Yes (5) HIV (human immunodeficiency virus infection) Qualifiers: Is this a current diagnosis for this admission?: Yes (6) HTN (hypertension) Is this a current diagnosis for this admission?: Yes - Plan Summary Summary: 02/07/2019 Patient is very pleasant in no distress. 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 3 days ago she did start to have some vomiting and some diarrhea. He thereafter she started getting more short of breath and palpitations . She states that she is gone back to her regular property management specialist now and saw him approximately 3 weeks ago.. I told her that we will hydrate her but not slow down her gastroenteritis. If the vomiting becomes persistent or intractable, a slow it down or stop it at that point. She has had no diarrhea for 48 hours. We will keep her on a Cardizem drip, I have ordered her home medications. she appears medically stable. She would prefer not to see the property management specialist if at all possible instead see her property management specialist as an outpatient. If patient has no complications and converts easily then we should be able to do this. 02/08/2019 Else this morning is 78, blood pressure 120/63, O2 sat 98% on room air Chemistry shows a normal phosphorus normal calcium and normal magnesium. Potassium is normal as well so her renal functions Digoxin level is low at less than 0.40, Patient has no chest pain no shortness of breath. Does tell me that about 3 years ago she tested positive for H. pylori. Yesterday I was thinking she needed to be checked for this, will order the labs today. We will wean off of Cardizem drip. Patient is on Toprol SR 100 mg every 12 hours digoxin 0.25 mg daily, I placed her on Protonix 20 mg every morning Patient was already taking Eliquis 5 mg twice daily, patient also taking Cozaar 25 mg daily I have discussed with Dr. Ludwig. Will switch from Toprol to Cardiazem if patient agrees. - Time Time Spent with patient: 35 or more minutes
--- NOTE | 2019-02-08 12:51 | EKG REPORT ---
SEVERITY:- ABNORMAL ECG - ATRIAL FIBRILLATION RIGHT BUNDLE BRANCH BLOCK LEFT VENTRICULAR HYPERTROPHY : Confirmed by: Trae Villafana 08-Feb-2019 12:50:38
[2019-02-08] MEDS ORDERED: DILTIAZEM HCL 120 MG CAP.SR.24H PO SCH (13:30)
[2019-02-08] MEDS: DILTIAZEM HCL/D5W 125 MG/125 ML RTUINJ IV PRN (14:32)
[2019-02-08] MEDS ORDERED: APIXABAN 5 MG TABLET PO SCH (18:00)
[2019-02-08] MEDS ORDERED: (PENDING PHARMACY ID) (Bictegrav/Emtricit/Tenofov Ala [Biktarvy 50-200-25 Mg Tablet] 1 TAB PO SCH (18:00)
[2019-02-08] MEDS ORDERED: FLUTICASONE NASAL SPRAY 50 MCG/SPRY 120 SPRAY/16 GM NASL ONE (18:30)
[2019-02-08] MEDS ORDERED: FLUTICASONE NASAL SPRAY 50 MCG/SPRY 120 SPRAY/16 GM ONE (18:47)
[2019-02-08] MEDS ORDERED: METOPROLOL TARTRATE 100 MG TABLET PO SCH (22:00)
[2019-02-08] MEDS ORDERED: ATORVASTATIN CALCIUM 20 MG TABLET PO SCH (22:00)
[2019-02-08] MEDS: ATORVASTATIN CALCIUM 20 MG TABLET PO SCH (22:14)
[2019-02-09] MEDS ORDERED: NORMAL SALINE 1000 ML 1,000 ML IV ONE (04:00)
[2019-02-09] MEDS: PANTOPRAZOLE SODIUM 20 MG TABLET.DR PO SCH (05:51)
[2019-02-09] MEDS ORDERED: DIGOXIN 0.25 MG TABLET PO SCH (10:00)
[2019-02-09] MEDS ORDERED: LOSARTAN POTASSIUM 25 MG TABLET PO SCH (10:00)
[2019-02-09] MEDS: DILTIAZEM HCL 120 MG CAP.SR.24H PO SCH ×2 (10:20→22:29)
[2019-02-09] MEDS: APIXABAN 5 MG TABLET PO SCH ×2 (10:22→17:12)
[2019-02-09] MEDS: LOSARTAN POTASSIUM 25 MG TABLET PO SCH (10:22)
[2019-02-09] MEDS: METOPROLOL SUCCINATE 50 MG TAB.SR.24H PO SCH ×2 (10:22→22:28)
[2019-02-09] MEDS: DIGOXIN 0.05 MG/ML SOLN 60 ML PO SCH (10:23)
[2019-02-09] MEDS: DOCUSATE SODIUM 100 MG CAPSULE PO SCH (10:26)
[2019-02-09] MEDS: FLUTICASONE NASAL SPRAY 50 MCG/SPRY 120 SPRAY/16 GM NASL SCH ×2 (10:26→17:12)
--- NOTE | 2019-02-09 10:28 | PDOC PROGRESS REPORT ---
Subjective Progress Note for:: 02/09/19 Reason For Visit: ATRIAL FIBRILLATION WITH RAPID VENTRICULAR 02/09/2019 Patient's heart rate now is going anywhere from 90 -139. Rate monitor tends to show a higher value in the actual pulse check by the nurse. Heart rate monitor just now shows a rate of 136, however recent check by the nurse showed 66 Patient is not symptomatic she has no shortness of breath and no chest pain. Patient's biggest complaint is nausea with her meals. I am going to add Reglan milligrams before meals and at bedtime. I have increased her Cardizem to twice daily dosing. She is still in atrial fib and is slowly becoming better rate controlled Physical Exam Vital Signs: Temp Pulse Resp BP Pulse Ox 98.1 F 66 12 131/91 H 100 02/09/19 07:52 02/09/19 07:52 02/09/19 07:52 02/09/19 07:52 02/09/19 07:52 Intake & Output 02/08/19 02/09/19 02/10/19 06:59 06:59 06:59 Intake Total 1765 3206 Balance 1765 3206 Weight 119.2 kg 121.7 kg General appearance: PRESENT: no acute distress Respiratory exam: PRESENT: clear to auscultation andres. ABSENT: rales, rhonchi, wheezes Cardiovascular exam: PRESENT: irregular rhythm Neurological exam: PRESENT: alert, awake, oriented to person, oriented to place, oriented to time, oriented to situation, CN II-XII grossly intact. ABSENT: motor sensory deficit Psychiatric exam: PRESENT: appropriate affect, normal mood. ABSENT: homicidal ideation, suicidal ideation Results Laboratory Results: 02/07/19 09:45 02/07/19 09:45 02/07/19 02/07/19 02/07/19 09:45 09:45 09:45 Creatine Kinase 102 CK-MB (CK-2) 0.94 Troponin I < 0.012 NT-Pro-B Natriuret Pep 4980 H Impressions: Chest X-Ray 02/07/19 09:21 IMPRESSION: CARDIAC ENLARGEMENT. VASCULAR CONGESTION. Assessment and Plan - Diagnosis (1) Gastroenteritis Is this a current diagnosis for this admission?: Yes (2) Atrial fibrillation with rapid ventricular response Is this a current diagnosis for this admission?: Yes (3) HIV disease Is this a current diagnosis for this admission?: Yes (4) Shortness of breath Is this a current diagnosis for this admission?: Yes (5) HIV (human immunodeficiency virus infection) Qualifiers: Is this a current diagnosis for this admission?: Yes (6) HTN (hypertension) Is this a current diagnosis for this admission?: Yes - Plan Summary Summary: 02/07/2019 Patient is very pleasant in no distress. 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 3 days ago she did start to have some vomiting and some diarrhea. He thereafter she started getting more short of breath and palpitations . She states that she is gone back to her regular roof fixer now and saw him approximately 3 weeks ago.. I told her that we will hydrate her but not slow down her gastroenteritis. If the vomiting becomes persistent or intractable, a slow it down or stop it at that point. She has had no diarrhea for 48 hours. We will keep her on a Cardizem drip, I have ordered her home medications. she appears medically stable. She would prefer not to see the roof fixer if at all possible instead see her roof fixer as an outpatient. If patient has no complications and converts easily then we should be able to do this. 02/08/2019 Else this morning is 78, blood pressure 120/63, O2 sat 98% on room air Chemistry shows a normal phosphorus normal calcium and normal magnesium. Potassium is normal as well so her renal functions Digoxin level is low at less than 0.40, Patient has no chest pain no shortness of breath. Does tell me that about 3 years ago she tested positive for H. pylori. Yesterday I was thinking she needed to be checked for this, will order the labs today. We will wean off of Cardizem drip. Patient is on Toprol SR 100 mg every 12 hours digoxin 0.25 mg daily, I placed her on Protonix 20 mg every morning Patient was already taking Eliquis 5 mg twice daily, patient also taking Cozaar 25 mg daily I have discussed with Dr. Ludwig. Will increase her Cardizem if patient agrees. 02/09/2019 Please see the history and physical note dictated today Adding Reglan to her regimen, Cardizem is now every 12 hours - Time Time Spent with patient: 25-34 minutes
[2019-02-09] MEDS: METOCLOPRAMIDE HCL 10 MG TABLET PO SCH ×3 (11:15→22:28)
[2019-02-09] MEDS: ATORVASTATIN CALCIUM 20 MG TABLET PO SCH (22:28)
[2019-02-10] MEDS: PANTOPRAZOLE SODIUM 20 MG TABLET.DR PO SCH (06:06)
[2019-02-10] MEDS: DOCUSATE SODIUM 100 MG CAPSULE PO SCH (09:30)
[2019-02-10] MEDS: METOCLOPRAMIDE HCL 10 MG TABLET PO SCH ×4 (09:40→22:18)
[2019-02-10] MEDS: DILTIAZEM HCL 120 MG CAP.SR.24H PO SCH ×2 (09:40→22:17)
[2019-02-10] MEDS: LOSARTAN POTASSIUM 25 MG TABLET PO SCH (09:40)
[2019-02-10] MEDS: METOPROLOL SUCCINATE 50 MG TAB.SR.24H PO SCH ×2 (09:41→22:18)
[2019-02-10] MEDS: DIGOXIN 0.05 MG/ML SOLN 60 ML PO SCH (09:41)
[2019-02-10] MEDS: APIXABAN 5 MG TABLET PO SCH ×2 (09:41→17:50)
[2019-02-10] MEDS: FLUTICASONE NASAL SPRAY 50 MCG/SPRY 120 SPRAY/16 GM NASL SCH ×2 (09:43→17:55)
--- NOTE | 2019-02-10 10:10 | PDOC PROGRESS REPORT ---
Subjective Progress Note for:: 02/10/19 Reason For Visit: ATRIAL FIBRILLATION WITH RAPID VENTRICULAR 02/10/2019 Patient was admitted for chronic atrial fib with RVR. Heart rate this morning was between 70 and 90. She seems to be much better controlled now. Blood pressures well controlled Patient states her nausea is also improved probably from the Reglan She is going to ambulate in the hallway today and if she does not get palpitations or shortness of breath could be discharged tomorrow. She already has a sheet metal assembler and riveter that she would like to continue seen. Did not want to see anyone from cardiology while in the hospital if at all possible. 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 ABSENT: rales, rhonchi, wheezes Cardiovascular exam: PRESENT: irregular rhythm, other - Chest pain Neurological exam: PRESENT: alert, awake, oriented to person, oriented to place, oriented to time, oriented to situation, CN II-XII grossly intact. ABSENT: motor sensory deficit Psychiatric exam: PRESENT: appropriate affect, normal mood. ABSENT: homicidal ideation, suicidal ideation Results Laboratory Results: 02/07/19 09:45 02/07/19 09:45 02/07/19 02/07/19 02/07/19 09:45 09:45 09:45 Creatine Kinase 102 CK-MB (CK-2) 0.94 Troponin I < 0.012 NT-Pro-B Natriuret Pep 4980 H Impressions: Chest X-Ray 02/07/19 09:21 IMPRESSION: CARDIAC ENLARGEMENT. VASCULAR CONGESTION. Assessment and Plan - Diagnosis (1) Gastroenteritis Is this a current diagnosis for this admission?: Yes (2) Atrial fibrillation with rapid ventricular response Is this a current diagnosis for this admission?: Yes (3) HIV disease Is this a current diagnosis for this admission?: Yes (4) Shortness of breath Is this a current diagnosis for this admission?: Yes (5) HIV (human immunodeficiency virus infection) Qualifiers: Is this a current diagnosis for this admission?: Yes (6) HTN (hypertension) Is this a current diagnosis for this admission?: Yes - Plan Summary Summary: 02/07/2019 Patient is very pleasant in no distress. 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 3 days ago she did start to have some vomiting and some diarrhea. He thereafter she started getting more short of breath and palpitations . She states that she is gone back to her regular sheet metal assembler and riveter now and saw him approximately 3 weeks ago.. I told her that we will hydrate her but not slow down her gastroenteritis. If the vomiting becomes persistent or intractable, a slow it down or stop it at that point. She has had no diarrhea for 48 hours. We will keep her on a Cardizem drip, I have ordered her home medications. she appears medically stable. She would prefer not to see the sheet metal assembler and riveter if at all possible instead see her sheet metal assembler and riveter as an outpatient. If patient has no complications and converts easily then we should be able to do this. 02/08/2019 Else this morning is 78, blood pressure 120/63, O2 sat 98% on room air Chemistry shows a normal phosphorus normal calcium and normal magnesium. Potassium is normal as well so her renal functions Digoxin level is low at less than 0.40, Patient has no chest pain no shortness of breath. Does tell me that about 3 years ago she tested positive for H. pylori. Yesterday I was thinking she needed to be checked for this, will order the labs today. We will wean off of Cardizem drip. Patient is on Toprol SR 100 mg every 12 hours digoxin 0.25 mg daily, I placed her on Protonix 20 mg every morning Patient was already taking Eliquis 5 mg twice daily, patient also taking Cozaar 25 mg daily I have discussed with Dr. Ludwig. Will increase her Cardizem if patient agrees. 02/09/2019 Please see the history and physical note dictated today Adding Reglan to her regimen, Cardizem is now every 12 hours 02/10/2019 Please see the subjective reason for visit above Patient appears to be well controlled on her medications today Reglan 5 mg before meals and at bedtime seems to have helped her nausea Patient can ambulate in the hallways today without chest pain or palpitations she would be able to be discharged home tomorrow on her current medications - Time Time Spent with patient: 25-34 minutes
[2019-02-10] MEDS: ATORVASTATIN CALCIUM 20 MG TABLET PO SCH (22:18)
[2019-02-11] MEDS: PANTOPRAZOLE SODIUM 20 MG TABLET.DR PO SCH (06:11)
[2019-02-11] MEDS: METOCLOPRAMIDE HCL 10 MG TABLET PO SCH ×4 (08:24→22:26)
[2019-02-11] MEDS: LOSARTAN POTASSIUM 25 MG TABLET PO SCH (10:47)
[2019-02-11] MEDS: APIXABAN 5 MG TABLET PO SCH ×2 (10:47→17:40)
[2019-02-11] MEDS: DILTIAZEM HCL 120 MG CAP.SR.24H PO SCH ×2 (10:47→22:25)
[2019-02-11] MEDS: METOPROLOL SUCCINATE 50 MG TAB.SR.24H PO SCH ×2 (10:48→22:26)
[2019-02-11] MEDS: DOCUSATE SODIUM 100 MG CAPSULE PO SCH ×2 (10:48→10:51)
[2019-02-11] MEDS: FLUTICASONE NASAL SPRAY 50 MCG/SPRY 120 SPRAY/16 GM NASL SCH ×2 (10:48→17:40)
[2019-02-11] MEDS: DIGOXIN 0.05 MG/ML SOLN 60 ML PO SCH (11:33)
[2019-02-11] MEDS ORDERED: DILTIAZEM HCL 60 MG TABLET PO ONE (12:06)
--- NOTE | 2019-02-11 19:56 | PDOC PROGRESS REPORT ---
Subjective Progress Note for:: 02/11/19 Subjective:: Patient was seen on afternoon rounds. She is found resting in bed comfortably on room air. She reports that she is feeling much better, however, does continue to have palpitations with minimal activity. She expresses concern regarding her multiple episodes of atrial fibrillation RVR requiring medication adjustments. She would like to meet with an bookstore manager to discuss possible cardiac ablation; fortunately Dr. Abrams is available to meet with her tomorrow morning. She denies fever, chest pain, orthopnea, abdominal pain, nausea and vomiting. She has no other concerns at this time. Reason For Visit: ATRIAL FIBRILLATION WITH RAPID VENTRICULAR Physical Exam Vital Signs: Temp Pulse Resp BP Pulse Ox 97.7 F 75 18 127/84 H 98 02/11/19 15:33 02/11/19 15:33 02/11/19 15:33 02/11/19 15:33 02/11/19 15:33 Intake & Output 02/10/19 02/11/19 02/12/19 06:59 06:59 06:59 Intake Total 1580 480 980 Output Total 1 Balance 1580 479 980 Weight 121.5 kg 121.5 kg General appearance: PRESENT: no acute distress, cooperative, obese, well- developed, well-nourished Head exam: PRESENT: atraumatic, normocephalic Eye exam: PRESENT: conjunctiva pink, EOMI, PERRLA. ABSENT: scleral icterus Ear exam: PRESENT: normal external ear exam Mouth exam: PRESENT: moist, tongue midline Respiratory exam: PRESENT: clear to auscultation andres, symmetrical, unlabored. ABSENT: rales, rhonchi, wheezes Cardiovascular exam: PRESENT: irregular rhythm, +S1, +S2, tachycardia - 70s at rest; 140s ambulating. ABSENT: diastolic murmur, rubs, systolic murmur Pulses: PRESENT: normal dorsalis pedis pul Vascular exam: PRESENT: normal capillary refill GI/Abdominal exam: PRESENT: normal bowel sounds, soft. ABSENT: distended, guarding, mass, organolmegaly, rebound, tenderness Rectal exam: PRESENT: deferred Extremities exam: PRESENT: full ROM. ABSENT: calf tenderness, clubbing, pedal edema Musculoskeletal exam: PRESENT: ambulatory Neurological exam: PRESENT: alert, awake, oriented to person, oriented to place, oriented to time, oriented to situation, CN II-XII grossly intact. ABSENT: motor sensory deficit Psychiatric exam: PRESENT: appropriate affect, normal mood. ABSENT: homicidal ideation, suicidal ideation Skin exam: PRESENT: dry, intact, warm. ABSENT: cyanosis, rash Results Laboratory Results: 02/07/19 09:45 02/07/19 09:45 02/07/19 02/07/19 02/07/19 09:45 09:45 09:45 Creatine Kinase 102 CK-MB (CK-2) 0.94 Troponin I < 0.012 NT-Pro-B Natriuret Pep 4980 H Impressions: Chest X-Ray 02/07/19 09:21 IMPRESSION: CARDIAC ENLARGEMENT. VASCULAR CONGESTION. Assessment and Plan - Diagnosis (1) Atrial fibrillation with rapid ventricular response Is this a current diagnosis for this admission?: Yes Plan: Now rate controlled at rest, however, patient becomes symptomatically tachycardic with minimal ambulation. Did discuss with patient recommendations to increase diltiazem to max tolerated dose; unfortunately, the patient is not agreeable at this time due to dizziness. Ultimate goal is to reduce the number of medication she takes. She reports that she is very interested in possible cardiac ablation. Fortunately, Dr. Abrams is available to meet with the patient tomorrow morning to discuss risks and benefits. Continue twice daily Eliquis. Continue digoxin 0.25 mg daily. Continue diltiazem CD 120 mg twice daily. Continue metoprolol 100 mg p.o. every 12 hours. Have discussed the patient with Dr. Abrams; he will be able to meet with her tomorrow to discuss possible cardiac ablation. Continue to monitor on telemetry. (2) Shortness of breath Is this a current diagnosis for this admission?: Yes Plan: Significantly improved; secondary #1. Evaluation management as above. (3) HTN (hypertension) Qualifiers: Hypertension type: essential hypertension Qualified Code(s): I10 - Essential (primary) hypertension Is this a current diagnosis for this admission?: Yes Plan: Normotensive at present. Continue diltiazem CD 120 mg twice daily. Continue metoprolol 100 mg p.o. every 12 hours. Continue home dose losartan. (4) HIV (human immunodeficiency virus infection) Qualifiers: Is this a current diagnosis for this admission?: Yes Plan: Stable; continue home medication regiment. (5) Gastroenteritis Is this a current diagnosis for this admission?: Yes Plan: Resolved; patient is now tolerating 100% of each meal without nausea. - Plan Summary Summary: 02/07/2019 Patient is very pleasant in no distress. 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 3 days ago she did start to have some vomiting and some diarrhea. thereafter she started getting more short of breath and palpitations. . She states that she is gone back to her regular advertising sales manager now and saw him approximately 3 weeks ago.. I told her that we will hydrate her but not slow down her gastroenteritis. If the vomiting becomes persistent or intractable, then slow it down or stop it at that point. She has had no diarrhea for 48 hours. We will keep her on a Cardizem drip, I have ordered her home medications. she appears medically stable. She would prefer not to see the advertising sales manager if at all possible instead see her advertising sales manager as an outpatient. If patient has no complications and converts easily then we should be able to do this. 02/08/2019 Pulse this morning is 78, blood pressure 120/63, O2 sat 98% on room air Chemistry shows a normal phosphorus normal calcium and normal magnesium. Potassium is normal as well so her renal functions Digoxin level is low at less than 0.40, Patient has no chest pain no shortness of breath. Does tell me that about 3 years ago she tested positive for H. pylori. Yesterday I was thinking she needed to be checked for this, will order the labs today. Unfortunatly our study here is a send out. She can be tested as outpatient. We will wean off of Cardizem drip. Patient is on Toprol SR 100 mg every 12 hours digoxin 0.25 mg daily, I placed her on Protonix 20 mg every morning Patient was already taking Eliquis 5 mg twice daily, patient also taking Cozaar 25 mg daily I have discussed with Dr. Ludwig. Will increase her Cardizem if patient agrees. 02/09/2019 Please see the history and physical note dictated today Adding Reglan to her regimen, Cardizem is now every 12 hours 02/10/2019 Please see the subjective reason for visit above Patient appears to be well controlled on her medications today Reglan 5 mg before meals and at bedtime seems to have helped her nausea Patient can ambulate in the hallways today without chest pain or palpitations she would be able to be discharged home tomorrow on her current medications Afib but now rate controlled. Has a advertising sales manager she see's regularly. - Time Time Spent with patient: 35 or more minutes Medications reviewed and adjusted accordingly: Yes Anticipated discharge: Home Within: within 48 hours
[2019-02-11] MEDS ORDERED: DILTIAZEM HCL 180 MG CAPSULE.CR PO SCH (22:00)
[2019-02-11] MEDS: ATORVASTATIN CALCIUM 20 MG TABLET PO SCH (22:26)
[2019-02-12] MEDS: PANTOPRAZOLE SODIUM 20 MG TABLET.DR PO SCH (06:27)
[2019-02-12] MEDS: METOCLOPRAMIDE HCL 10 MG TABLET PO SCH ×4 (07:59→22:18)
[2019-02-12] MEDS ORDERED: DEXTROSE 40% GEL 15 GM TUBE PO PRN ×2 (08:52)
[2019-02-12] MEDS ORDERED: DEXTROSE 50%-WATER 25 GM/50 ML DISP.SYRIN IV PRN ×2 (08:52)
[2019-02-12] MEDS ORDERED: GLUCAGON,HUMAN RECOMB 1 MG INJ SUBCUT PRN (08:52)
[2019-02-12] MEDS: METOPROLOL SUCCINATE 50 MG TAB.SR.24H PO SCH ×2 (09:57→21:00)
[2019-02-12] MEDS: APIXABAN 5 MG TABLET PO SCH ×2 (09:57→18:46)
[2019-02-12] MEDS: DILTIAZEM HCL 120 MG CAP.SR.24H PO SCH ×2 (09:57→22:18)
[2019-02-12] MEDS: LOSARTAN POTASSIUM 25 MG TABLET PO SCH (09:58)
[2019-02-12] MEDS: DIGOXIN 0.05 MG/ML SOLN 60 ML PO SCH (09:58)
[2019-02-12] MEDS: DOCUSATE SODIUM 100 MG CAPSULE PO SCH (09:58)
[2019-02-12] MEDS: FLUTICASONE NASAL SPRAY 50 MCG/SPRY 120 SPRAY/16 GM NASL SCH ×2 (09:59→18:46)
[2019-02-12] MEDS ORDERED: PROPOFOL INJ 200 MG/20 ML VIAL IV ONE (15:51)
--- NOTE | 2019-02-12 17:21 | PDOC CONSULTATION ---
Consultation Consult Date: 02/12/19 Provider Consulted: EDUARDO MAR Consult reason:: Atrial fibrillation History of Present Illness Admission Date/PCP: 02/11/19 19:56 MARILYN POE MD Patient complains of: Palpitations History of Present Illness: MYA ROCK is a 58 year old female With the following active problems 1. HIV positive status 2. 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 At that time she appears to have been started on systemic anticoagulation with apixaban. She has never been cardioverted before. During this hospital visit she was admitted with diarrhea nausea and abdominal discomfort and was again found to be in atrial fibrillation with rapid ventricular response. She has been on uninterrupted systemic anticoagulation with apixaban since it was started in the early part of December 2018. Since admission of the hospital she has been on rate control medicines intravenously primarily diltiazem. Her heart rate is much improved. She has be en transitioned to oral medications. Her resting heart rate is in the high 90s but with ambulation the heart rate does increase. Since she was symptomatic cardiology input was requested. Past Medical History Cardiac Medical History: Reports: Atrial Fibrillation, Hyperlipidema, Hypertension, Other - HIV positive Pulmonary Medical History: Reports: Asthma GI Medical History: Reports: Gastroesophageal Reflux Disease Psychiatric Medical History: Denies: Depression Hematology: Reports: Anemia Infectious Medical History: Reports: HIV Past Surgical History Past Surgical History: Reports: Cardiac Catheterization - Apr 2015, unremarkable., Section, Hysterectomy, Orthopedic Surgery - L ankle, Tubal Ligation Social History Lives with: Family Smoking Status: Former Smoker Cigarettes Packs Per Day: 0.5 Electronic Cigarette use?: No Number of Years Smokin Last Time Smoked: 12 years ago Frequency of Alcohol Use: None Hx Recreational Drug Use: Yes Drugs: Marijuana Hx Prescription Drug Abuse: No - Advance Directive Resuscitation Status: Full Code Family History Family History: Reviewed & Not Pertinent, CAD, Hypertension Parental Family History Reviewed: No Children Family History Reviewed: No Sibling(s) Family History Reviewed.: No Medication/Allergy Home Medications: Apixaban [Eliquis 5 mg Tablet] 5 mg PO BID 02/07/19 Atorvastatin Calcium [Lipitor 20 mg Tablet] 20 mg PO QHS 02/07/19 Bictegrav/Emtricit/Tenofov Ala [Biktarvy 50-200-25 mg Tablet] 1 tab PO QPM 02/07/19 Digoxin [Lanoxin 0.25 mg Tablet] 0.25 mg PO DAILY 02/07/19 Diltiazem HCl [Cardizem Cd 120 mg Capsule] 120 mg PO DAILY 02/07/19 Losartan Potassium [Cozaar 25 mg Tablet] 25 mg PO DAILY 02/07/19 Metoprolol Tartrate [Lopressor 100 mg Tablet] 100 mg PO Q12 02/07/19 Allergies/Adverse Reactions: ciprofloxacin [From Cipro] Allergy (Mild, Verified 11/22/18 10:09) Hives ciprofloxacin HCl [From Cipro] Allergy (Mild, Verified 11/22/18 10:09) Hives Review of Systems Constitutional: PRESENT: as per HPI Nose, Mouth, and Throat: PRESENT: as per HPI Cardiovascular: PRESENT: palpitations Genitourinary: PRESENT: as per HPI Musculoskeletal: PRESENT: as per HPI Physical Exam Vital Signs: Temp Pulse Resp BP Pulse Ox 97.7 F 69 21 H 143/89 H 97 02/12/19 15:31 02/12/19 16:59 02/12/19 16:59 02/12/19 16:59 02/12/19 16:59 Intake & Output 02/11/19 02/12/19 02/13/19 06:59 06:59 06:59 Intake Total 480 1130 Output Total 1 Balance 479 1130 Weight 121.5 kg 117.6 kg General appearance: PRESENT: no acute distress, cooperative, obese Head exam: PRESENT: atraumatic, normocephalic Eye exam: PRESENT: conjunctiva pink, EOMI Ear exam: PRESENT: normal external ear exam Mouth exam: PRESENT: moist Neck exam: PRESENT: full ROM Respiratory exam: PRESENT: unlabored Cardiovascular exam: PRESENT: irregular rhythm Pulses: PRESENT: normal radial pulses GI/Abdominal exam: PRESENT: soft Rectal exam: PRESENT: deferred Musculoskeletal exam: PRESENT: ambulatory, normal inspection Neurological exam: PRESENT: alert, awake, oriented to person, oriented to place, oriented to time Psychiatric exam: PRESENT: appropriate affect Skin exam: PRESENT: dry Results Laboratory Results: 02/07/19 09:45 02/07/19 09:45 02/07/19 02/07/19 02/07/19 09:45 09:45 09:45 Creatine Kinase 102 CK-MB (CK-2) 0.94 Troponin I < 0.012 NT-Pro-B Natriuret Pep 4980 H Impressions: Chest X-Ray 02/07/19 09:21 IMPRESSION: CARDIAC ENLARGEMENT. VASCULAR CONGESTION. Assessment & Plan - Diagnosis (1) Atrial fibrillation with rapid ventricular response Is this a current diagnosis for this admission?: Yes Plan: We will plan for direct-current cardioversion Patient has been on uninterrupted systemic anticoagulation with apixaban for over 2 months and thus transesophageal echocardiogram will not be performed. I verbally affirmed that the patient has not missed any doses of apixaban since initiation of therapy. - Notes Notes: Atrial fibrillation with rapid ventricular response DATA Transthoracic echocardiogram 12/30/2018 Left ventricular ejection fraction is estimated at 45 to 50%. Twelve-lead EKG 02/08/2019 0629 Atrial fibrillation multiple aberrantly conducted beats, right bundle branch block, left ventricular hypertrophy Twelve-lead EKG 02/07/2019 0938 Atrial fibrillation rapid ventricular response 161 bpm, right bundle branch block Patient asymptomatic. Review of telemetry shows atrial fibrillation with controlled ventricular response 02/12/2019 Discussed direct-current cardioversion to restore sinus rhythm. Since the patient has been on uninterrupted systemic anticoagulation with apixaban for approximately 2 months we will proceed directly to cardioversion without transesophageal echocardiogram. The procedure cardioversion was discussed in great detail. Risk benefits and complications are discussed. Risks include skin gongora, other arrhythmias and risks pertinent to medications used during anesthesia. Patient understands risks and benefits and would like to proceed with cardioversion. She understands that she will have to continue systemic anticoagulation. At this present time we will persist with beta blockers and calcium blockers to suppress triggers for atrial fibrillation. We will not initiate antiarrhythmics at this point.
--- NOTE | 2019-02-12 17:34 | Operative Report ---
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 She has been on rate control medicines and systemic anticoagulation. During this hospital stay she was initially started on intravenous diltiazem and was transitioned to oral medications for rate control. Although her resting heart rate was in the high 90s with ambulation the heart rate would increase and the patient would become symptomatic. She has never been cardioverted before. She has been on uninterrupted systemic anticoagulation with apixaban since original initiation of therapy at the time of diagnosis in the early part of December 2018. I have verbally informed that the patient has not missed any doses of this medication in the last 2 months. Based on this we decided to proceed with direct-current cardioversion to restore sinus rhythm. Complications: None Medications: Please see anesthesia notes Procedure: Defibrillator pads were placed in an anteroposterior fashion. Patient was administered oxygen by mask. Vitals and rhythm were monitored throughout the procedure. Once the patient was comfortably sedated a single synchronized biphasic direct current shock at 150 J was delivered across the patches which restored sinus rhythm with a right bundle branch block. However within a few minutes the patient had reinitiation of atrial fibrillation. Since the patient continued to be sedated she was defibrillated through the patches using another single synchronized biphasic direct current shock at 200 J. This was again successful at sinus rhythm. Conclusion: Successful cardioversion for atrial fibrillation Recommendations 1. Continue to observe on telemetry 2. Continue apixaban 5 mg twice daily 3. Discontinue digoxin 4. Continue metoprolol at current dose 5. If additional blood pressure medication is necessary would prefer continued use of diltiazem and stopping losartan 6. Will arrange for outpatient cardiology follow-up to discuss antiarrhythmics and further treatment options
--- NOTE | 2019-02-12 18:23 | PDOC PROGRESS REPORT ---
Subjective Progress Note for:: 02/12/19 Subjective:: Patient was seen on morning rounds. She is found resting in bed comfortably on room air. She reports that she is feeling much better, however, does continue to have palpitations with minimal activity. She is very happy with her meeting with Dr. Abrams this morning. Plans are for cardioversion this afternoon. She denies fever, chest pain, dyspnea, orthopnea, cough, peripheral edema, abdominal pain, nausea and vomiting. She has no other concerns at this time. Reason For Visit: ATRIAL FIBRILLATION WITH RAPID VENTRICULAR Physical Exam Vital Signs: Temp Pulse Resp BP Pulse Ox 97.7 F 50 L 18 144/88 H 98 02/12/19 15:31 02/12/19 17:33 02/12/19 17:33 02/12/19 17:33 02/12/19 17:33 Intake & Output 02/11/19 02/12/19 02/13/19 06:59 06:59 06:59 Intake Total 480 1130 Output Total 1 Balance 479 1130 Weight 121.5 kg 117.6 kg General appearance: PRESENT: no acute distress, cooperative, morbidly obese, w ell-developed, well-nourished Head exam: PRESENT: atraumatic, normocephalic Eye exam: PRESENT: conjunctiva pink, EOMI, PERRLA. ABSENT: scleral icterus Ear exam: PRESENT: normal external ear exam Mouth exam: PRESENT: moist, tongue midline Respiratory exam: PRESENT: clear to auscultation andres, symmetrical, unlabored. ABSENT: rales, rhonchi, wheezes Cardiovascular exam: PRESENT: irregular rhythm, +S1, +S2. ABSENT: diastolic murmur, rubs, systolic murmur Vascular exam: PRESENT: normal capillary refill Rectal exam: PRESENT: deferred Extremities exam: PRESENT: full ROM. ABSENT: calf tenderness, clubbing, pedal edema Musculoskeletal exam: PRESENT: ambulatory Neurological exam: PRESENT: alert, awake, oriented to person, oriented to place, oriented to time, oriented to situation, CN II-XII grossly intact. ABSENT: motor sensory deficit Psychiatric exam: PRESENT: appropriate affect, normal mood. ABSENT: homicidal ideation, suicidal ideation Skin exam: PRESENT: dry, intact, warm. ABSENT: cyanosis, rash Results Laboratory Results: 02/07/19 09:45 02/07/19 09:45 02/07/19 02/07/19 02/07/19 09:45 09:45 09:45 Creatine Kinase 102 CK-MB (CK-2) 0.94 Troponin I < 0.012 NT-Pro-B Natriuret Pep 4980 H Impressions: Chest X-Ray 02/07/19 09:21 IMPRESSION: CARDIAC ENLARGEMENT. VASCULAR CONGESTION. Assessment and Plan - Diagnosis (1) Atrial fibrillation with rapid ventricular response Is this a current diagnosis for this admission?: Yes Plan: Now rate controlled at rest, however, patient becomes symptomatically tachycardic with minimal ambulation. Now status post direct-current cardioversion by Dr. Abrams. Now in normal sinus with PVCs. Per Dr. Abrams's recommendations, we will continue her Eliquis. We will discontinue digoxin. Continue current Toprol dose of 100 mg p.o. every 12 hours. If required for blood pressure control, prefer diltiazem over losartan. We will follow-up with Dr. Abrams as outpatient. (2) Shortness of breath Is this a current diagnosis for this admission?: Yes Plan: Resolved; secondary #1. Evaluation management as above. (3) HTN (hypertension) Qualifiers: Hypertension type: essential hypertension Qualified Code(s): I10 - Essential (primary) hypertension Is this a current diagnosis for this admission?: Yes Plan: Normotensive at present. Antihypertensives as above. Cardiac diet (4) HIV (human immunodeficiency virus infection) Qualifiers: Is this a current diagnosis for this admission?: Yes Plan: Stable; continue home medication regiment. (5) Gastroenteritis Is this a current diagnosis for this admission?: Yes Plan: Resolved; patient is now tolerating 100% of each meal without nausea. - Time Time Spent with patient: 25-34 minutes Medications reviewed and adjusted accordingly: Yes Anticipated discharge: Home Within: within 24 hours
[2019-02-12] MEDS: ATORVASTATIN CALCIUM 20 MG TABLET PO SCH (22:18)
[2019-02-13] MEDS: PANTOPRAZOLE SODIUM 20 MG TABLET.DR PO SCH (06:24)
[2019-02-13] MEDS: METOCLOPRAMIDE HCL 10 MG TABLET PO SCH (08:32)
[2019-02-13] MEDS: METOPROLOL SUCCINATE 50 MG TAB.SR.24H PO SCH (09:50)
[2019-02-13] MEDS: DILTIAZEM HCL 120 MG CAP.SR.24H PO SCH (09:50)
[2019-02-13] MEDS: LOSARTAN POTASSIUM 25 MG TABLET PO SCH (09:50)
[2019-02-13] MEDS: APIXABAN 5 MG TABLET PO SCH (09:50)
[2019-02-13] MEDS: DOCUSATE SODIUM 100 MG CAPSULE PO SCH (09:50)
[2019-02-13] MEDS: FLUTICASONE NASAL SPRAY 50 MCG/SPRY 120 SPRAY/16 GM NASL SCH (09:51)
[2019-02-13 11:43] VITALS: BP 129/84
--- NOTE | 2019-02-13 19:16 | EKG REPORT ---
SEVERITY:- ABNORMAL ECG - SINUS RHYTHM RBBB AND LAFB LEFT VENTRICULAR HYPERTROPHY : Confirmed by: Swapna Mcrae MD 13-Feb-2019 19:15:30
--- NOTE | 2019-02-16 18:39 | PDOC DISCHARGE SUMMARY ---
Impression - Admit/DC Date/PCP Admission Date/Primary Care Provider: 02/11/19 19:56 MARILYN POE MD Discharge Date: 02/13/19 - Discharge Diagnosis (1) Atrial fibrillation with rapid ventricular response Is this a current diagnosis for this admission?: Yes (2) Shortness of breath Is this a current diagnosis for this admission?: Yes (3) HTN (hypertension) Is this a current diagnosis for this admission?: Yes (4) HIV (human immunodeficiency virus infection) Is this a current diagnosis for this admission?: Yes (5) Gastroenteritis Is this a current diagnosis for this admission?: Yes - Additional Information Resuscitation Status: Full Code Discharge Diet: Cardiac Discharge Activity: Activity As Tolerated, Balance Activity w/Rest, Slowly Incre ase Activity Referrals: EDUARDO ABRAMS MD [ACTIVE STAFF] - (left a message to call us) PROSPER CHU FNP-C [NO LOCAL MD] - 02/26/19 10:00 am Prescriptions: Fluticasone Propionate [Flonase Nasal [place] 50 Mcg/[place] 16 gm] 1 spray NASL BID #1 spray.pump Metoprolol Succinate [Toprol Xl 50 mg Tab.sr] 100 mg PO Q12 #120 tab.sr.24h Home Medications: Apixaban [Eliquis 5 mg Tablet] 5 mg PO BID 02/07/19 Atorvastatin Calcium [Lipitor 20 mg Tablet] 20 mg PO QHS 02/07/19 Bictegrav/Emtricit/Tenofov Ala [Biktarvy 50-200-25 mg Tablet] 1 tab PO QPM 02/07/19 Diltiazem HCl [Cardizem Cd 120 mg Capsule] 120 mg PO DAILY 02/07/19 Losartan Potassium [Cozaar 25 mg Tablet] 25 mg PO DAILY 02/07/19 Acetaminophen [Tylenol 325 mg Tablet] 650 mg PO Q4HP PRN tablet 02/13/19 Apixaban [Eliquis 5 mg Tablet] 5 mg PO BID tablet 02/13/19 Fluticasone Propionate [Flonase Nasal [place] 50 Mcg/[place] 16 gm] 1 spray NASL BID #1 spray.pump 02/13/19 Metoprolol Succinate [Toprol Xl 50 mg Tab.sr] 100 mg PO Q12 #120 tab.sr.24h 02/13/19 History of Present Illiness History of Present Illness: Per H&P by Loco Segura PA-C: MYA ROCK is a 58 year old female with a 2 to 3- day history of shortness of breath, abdominal pain, vomiting, diarrhea. Patient has a history of atrial fib with RVR in fact she was in the hospital on December 27 and then readmitted on December 31 and then seen in the emergency room on January 13 all with atrial fib RVR. 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 She has not had any diarrhea in 2 days now. Patient also states that she is taking her medicine like she supposed to and she actually saw her filter tank tender about 3 weeks ago. I think on this occasion this gastroenteritis has caused her to go back in atrial fib She is currently on a Cardizem drip in the ER states her symptoms are better since coming to the ER Hospital Course Hospital Course: The patient was admitted to [facility] on continuous cardiac telemetry. She was initially provided IV diltiazem for rate control of her atrial fibrillation with RVR. The patient indicated that she wished to have a referral to [facility] to discuss possible cardiac ablation. Fortunately, Dr. Abrams was available to meet with the patient. The patient was direct-current cardioverted 02/12/2019 successfully and is now in normal sinus rhythm. Discussed patient with Dr. Abrams prior to discharge; he advises that the patient discontinue her digoxin but continue her Eliquis, Toprol, and p.o. diltiazem. She may discontinue losartan if needed due to hypotension. The patient's gastritis resolved with IV fluids and symptomatic management. She is now tolerating 100% of each meal without nausea, vomiting, or diarrhea. The patient's other chronic medical conditions remained stable. The patient is discharged home in stable condition. She is currently in sinus rhythm. She is advised to continue her Eliquis, Toprol, and diltiazem. She has been advised to discontinue her digoxin. She may discontinue her losartan at home if she notes hypotension. She is instructed to follow-up with her primary care provider within 1 week. She is advised to follow-up with Dr. Abrams within 1 week. She is instructed to eat a cardiac diet. She is encouraged to return to the emergency department as needed for concerning symptoms. Physical Exam Vital Signs: Temp Pulse Resp BP Pulse Ox 98.1 F 62 16 128/84 H 99 02/13/19 11:38 02/13/19 11:38 02/13/19 11:38 02/13/19 11:38 02/13/19 11:38 General appearance: PRESENT: no acute distress, well-developed, well-nourished Head exam: PRESENT: atraumatic, normocephalic Eye exam: PRESENT: conjunctiva pink, EOMI, PERRLA. ABSENT: scleral icterus Ear exam: PRESENT: normal external ear exam Mouth exam: PRESENT: moist, tongue midline Neck exam: ABSENT: carotid bruit, JVD, lymphadenopathy, thyromegaly Respiratory exam: PRESENT: clear to auscultation andres. ABSENT: rales, rhonchi, wheezes Cardiovascular exam: PRESENT: RRR - NSR. ABSENT: diastolic murmur, rubs, systolic murmur Pulses: PRESENT: normal dorsalis pedis pul Vascular exam: PRESENT: normal capillary refill GI/Abdominal exam: PRESENT: normal bowel sounds, soft. ABSENT: distended, guarding, mass, organolmegaly, rebound, tenderness Rectal exam: PRESENT: deferred Extremities exam: PRESENT: full ROM. ABSENT: calf tenderness, clubbing, pedal edema Neurological exam: PRESENT: alert, awake, oriented to person, oriented to place, oriented to time, oriented to situation, CN II-XII grossly intact. ABSENT: motor sensory deficit Psychiatric exam: PRESENT: appropriate affect, normal mood. ABSENT: homicidal ideation, suicidal ideation Skin exam: PRESENT: dry, intact, warm. ABSENT: cyanosis, rash Results Laboratory Results: WBC 4.1 10^3/uL (4.0-10.5) 02/07/19 09:45 RBC 3.91 10^6/uL (3.72-5.28) 02/07/19 09:45 Hgb 12.2 g/dL (12.0-15.5) 02/07/19 09:45 Hct 37.2 % (36.0-47.0) 02/07/19 09:45 MCV 95 fl (80-97) 02/07/19 09:45 MCH 31.3 pg (27.0-33.4) 02/07/19 09:45 MCHC 33.0 g/dL (32.0-36.0) 02/07/19 09:45 RDW 13.9 % (11.5-14.0) 02/07/19 09:45 Plt Count 266 10^3/uL (150-450) 02/07/19 09:45 Lymph % (Auto) 38.1 % (13-45) 02/07/19 09:45 Fleming % (Auto) 11.4 % (3-13) 02/07/19 09:45 Eos % (Auto) 0.1 % (0-6) 02/07/19 09:45 Baso % (Auto) 0.9 % (0-2) 02/07/19 09:45 Absolute Neuts (auto) 2.0 10^3/uL (1.7-8.2) 02/07/19 09:45 Absolute Lymphs (auto) 1.6 10^3/uL (0.5-4.7) 02/07/19 09:45 Absolute Monos (auto) 0.5 10^3/uL (0.1-1.4) 02/07/19 09:45 Absolute Eos (auto) 0.0 10^3/uL (0.0-0.6) 02/07/19 09:45 Absolute Basos (auto) 0.0 10^3/uL (0.0-0.2) 02/07/19 09:45 Seg Neutrophils % 49.5 % (42-78) 02/07/19 09:45 Sodium 144.5 mmol/L (137-145) 02/07/19 09:45 Potassium 4.3 mmol/L (3.6-5.0) 02/07/19 09:45 Chloride 110 mmol/L (98-107) H 02/07/19 09:45 Carbon Dioxide 25 mmol/L (22-30) 02/07/19 09:45 Anion Gap 10 (5-19) 02/07/19 09:45 BUN 16 mg/dL (7-20) 02/07/19 09:45 Creatinine 0.88 mg/dL (0.52-1.25) 02/07/19 09:45 Est GFR ( Amer) > 60 (>60) 02/07/19 09:45 Est GFR (MDRD) Non-Af > 60 (>60) 02/07/19 09:45 Glucose 110 mg/dL (75-110) 02/07/19 09:45 Calcium 9.2 mg/dL (8.4-10.2) 02/07/19 09:45 Phosphorus 3.6 mg/dL (2.5-4.5) 02/08/19 06:15 Magnesium 1.7 mg/dL (1.6-2.3) 02/08/19 06:15 Total Bilirubin 0.8 mg/dL (0.2-1.3) 02/07/19 09:45 Direct Bilirubin 0.1 mg/dL (0.0-0.4) 02/07/19 09:45 Neonat Total Bilirubin Not Reportable 02/07/19 09:45 Neonat Direct Bilirubin Not Reportable 02/07/19 09:45 Neonat Indirect Bili Not Reportable 02/07/19 09:45 AST 47 U/L (14-36) H 02/07/19 09:45 ALT 61 U/L (<35) 02/07/19 09:45 Alkaline Phosphatase 91 U/L (38-126) 02/07/19 09:45 Creatine Kinase 102 U/L (30-135) 02/07/19 09:45 CK-MB (CK-2) 0.94 ng/mL (<4.55) 02/07/19 09:45 Troponin I < 0.012 ng/mL 02/07/19 09:45 NT-Pro-B Natriuret Pep 4980 pg/mL (<125) H 02/07/19 09:45 Total Protein 6.9 g/dL (6.3-8.2) 02/07/19 09:45 Albumin 3.8 g/dL (3.5-5.0) 02/07/19 09:45 Urine Color YELLOW 02/07/19 10:08 Urine Appearance SLIGHTLY-CLOUDY 02/07/19 10:08 Urine pH 6.0 (5.0-9.0) 02/07/19 10:08 Ur Specific [place] 1.025 02/07/19 10:08 Urine Protein 100 mg/dL (NEGATIVE) H 02/07/19 10:08 Urine Glucose (UA) NEGATIVE mg/dL (NEGATIVE) 02/07/19 10:08 Urine Ketones NEGATIVE mg/dL (NEGATIVE) 02/07/19 10:08 Urine Blood NEGATIVE (NEGATIVE) 02/07/19 10:08 Urine Nitrite NEGATIVE (NEGATIVE) 02/07/19 10:08 Urine Bilirubin NEGATIVE (NEGATIVE) 02/07/19 10:08 Urine Urobilinogen 4.0 mg/dL (<2.0) H 02/07/19 10:08 Ur Leukocyte Esterase NEGATIVE (NEGATIVE) 02/07/19 10:08 Urine WBC (Auto) 3 /HPF 02/07/19 10:08 Urine RBC (Auto) 13 /HPF 02/07/19 10:08 U Hyaline Cast (Auto) 10 /LPF 02/07/19 10:08 Urine Bacteria (Auto) TRACE /HPF 02/07/19 10:08 Squamous Epi Cells Auto 7 /HPF 02/07/19 10:08 Urine Mucus (Auto) MANY /LPF 02/07/19 10:08 Urine Ascorbic Acid NEGATIVE (NEGATIVE) 02/07/19 10:08 Digoxin < 0.40 ng/mL (0.8-2.0) L 02/07/19 09:45 02/07/19 02/07/19 09:45 09:45 CK-MB (CK-2) 0.94 Troponin I < 0.012 NT-Pro-B Natriuret Pep 4980 H Impressions: Chest X-Ray 02/07/19 09:21 IMPRESSION: CARDIAC ENLARGEMENT. VASCULAR CONGESTION. Plan Plan of Treatment: The patient is discharged home in stable condition. She is instructed to follow-up with her primary care provider within 1 week. She is advised to follow-up with Dr. Abrams within 1 week. She is instructed to stop her digoxin, continue Xarelto. She is instructed to continue taking her metoprolol and diltiazem. She may discontinue her losartan if she notices hypotensive blood pressures. She is advised to eat a cardiac diet. Take all other medications as prescribed. She is encouraged to return the emergency department as needed for concerning symptoms. Time Spent: Greater than 30 Minutes Stroke Is this a Stroke Patient?: No Acute Heart Failure - Is this a Heart Failure Patient?: No
== END 2019-02-13 12:08 | disposition home or self-care (01) | DRG 309 ==
LOC: ER 09:05 → EH 11:29 → INTOOBSV 11:29 → 3S 16:31 → OBSVTOIN 02-11 19:56
PROVIDERS: ADMIT Internal Medicine; ATTEND Internal Medicine
PROC: 5A2204Z Restoration of Cardiac Rhythm, Single (ICD-10-PCS; principal; 2019-02-12)
DX: I48.91 Unspecified atrial fibrillation (principal); B20 Human immunodeficiency virus [HIV] disease; K52.9 Noninfective gastroenteritis and colitis, unspecified; I10 Essential (primary) hypertension; K21.9 Gastro-esophageal reflux disease without esophagitis; J45.909 Unspecified asthma, uncomplicated; Z79.01 Long term (current) use of anticoagulants; Z79.899 Other long term (current) drug therapy; Z87.891 Personal history of nicotine dependence
CPT/HCPCS: 36415; 410; 71045; 80053; 80162; 81001; 82550; 82553; 83735; 83880; 84100; 84484; 85025; 93005; 93010; 94640; 96374; 99291; G0378; J2704; J3490; J7030